=== PATIENT | female | born 1985 | race Hispanic/Latino ===

== ENCOUNTER 2017-08-27 16:02 | Emergency (ER) | payer OTHER ==
[~2017-08-27] VITALS: Ht 157.5 cm; Wt 86.2 kg
--- NOTE | 2017-08-27 17:26 | Diagnostic Imaging Report ---
Exam: Head CT without contrast History: Headache, dizziness Comparison studies: Head CT 09/26/2016 Technique: Axial images were obtained from the skull base to the vertex. Coronal and sagittal images reconstructed from the axial data. Intravenous contrast: None Findings: Scalp: No abnormalities. Bones: No fractures, blastic or lytic lesions. Brain sulci: Appropriate for age. Ventricles: Normal in size and configuration. No hydrocephalus. Extra-axial spaces: No masses, no fluid collection. Parenchyma: No abnormal densities. No masses, acute hemorrhage, acute or chronic vascular insults. Sellar/suprasellar region: No abnormalities. Craniocervical junction: Patent foramen magnum. No Chiari one malformation. Incidental findings: Physiologic calcifications in the globi pallidi.. IMPRESSION: 1. No abnormalities. 2. No changes from the previous head CT of 09/26/2016. Signed by: Dr. Terrance Reaves M.D. on 08/27/2017 5:22 PM
[2017-08-27 17:58] LABS: BASOPHILS % 0.7 % (0.0-1.0); EOSINOPHILS # (AUTO) 0.1 (0.0-0.4); EOSINOPHILS % 2.4 % (0.0-6.0); HEMATOCRIT 32.1 % (34.2-44.1); HEMOGLOBIN 10.7 g/dL (12.0-16.0); LYMPHOCYTES # (AUTO) 0.7 (1.0-3.2); LYMPHOCYTES % 22.3 % (18.0-39.1); MEAN CORPUSCULAR HGB CONC 33.3 g/dL (31-35); MEAN CORPUSCULAR VOLUME 89.9 fL (81-99); MONOCYTES # (AUTO) 0.3 (0.2-0.8); MONOCYTES % 8.8 % (4.4-11.3); NEUTROPHILS # (AUTO) 1.9 (2.1-6.9); NEUTROPHILS % 65.5 % (38.7-80.0); PLATELET COUNT 215 x10e3/uL (140-360); RED BLOOD COUNT 3.57 x10e6/uL (3.6-5.1); RED CELL DISTRIBUTION WIDTH 13.2 % (11.7-14.4)
[2017-08-27] MEDS: KETOROLAC TROMETHAMINE 30 MG/ML VIAL IV STA (17:59)
[2017-08-27] MEDS: DIPHENHYDRAMINE HCL INJ 50 MG/ML VIAL IV ONE (17:59)
[2017-08-27] MEDS: SODIUM CHLORIDE 0.9% 1000ML 1,000 ML IV STA (17:59)
[2017-08-27] MEDS: METOCLOPRAMIDE HCL 10 MG/2ML VIAL IV ONE (17:59)
[2017-08-27 18:02] LABS: BILIRUBIN,URINE NEGATIVE (NEGATIVE); KETONES,URINE NEGATIVE (NEGATIVE); LEUKOCYTE ESTERASE ,URINE TRACE (NEGATIVE); NITRITE,URINE NEGATIVE (NEGATIVE); PROTEIN,URINE DIPSTICK 3+ (NEGATIVE); URINE UROBILINOGEN 0.2 mg/dL (0.2 - 1)
[2017-08-27 18:09] LABS: CLARITY,URINE HAZY (CLEAR); COLOR,URINE YELLOW (YELLOW)
[2017-08-27 18:11] LABS: ALANINE AMINOTRANSFERASE 31 IU/L (0-55); ALBUMIN 2.3 g/dL (3.5-5.0); ALBUMIN/GLOBULIN RATIO 0.5 (0.8-2.0); ALKALINE PHOSPHATASE 88 IU/L (40-150); ANION GAP 11.2 mmol/L (8-16); BLOOD UREA NITROGEN 12 mg/dL (7-26); BUN/CREATININE RATIO 16 (6-25); CALCIUM 8.2 mg/dL (8.4-10.2); CARBON DIOXIDE 23 mmol/L (22-29); CHLORIDE 110 mmol/L (98-107); CREATININE, SERUM 0.76 mg/dL (0.57-1.11); EST GLOMERULAR FILTRATION RATE > 60 ML/MIN (60-); GLUCOSE 85 mg/dL (74-118); POTASSIUM 4.2 mmol/L (3.5-5.1); SODIUM 140 mmol/L (136-145)
[2017-08-27 18:13] LABS: BACTERIA,URINE FEW /HPF; EPITHELIAL CELLS,URINE FEW /LPF; MUCUS,URINE FEW (RARE); WBC,URINE (MAN) 21-50 /HPF (0-5)
[2017-08-27 18:39] VITALS: BP 131/62
== END 2017-08-27 18:41 | disposition home or self-care (01) ==
LOC: ER 16:02
DX: G43.909 Migraine, unspecified, not intractable, without status migrainosus (principal); N39.0 Urinary tract infection, site not specified; E03.9 Hypothyroidism, unspecified; M32.9 Systemic lupus erythematosus, unspecified
CPT/HCPCS: 36415; 70450; 80053; 81001; 84702; 85025; 87086; 87400; 99283; J1200; J1885; J2765; J7030

== ENCOUNTER 2018-05-22 11:57 | Emergency (ER) | payer BC, OTHER ==
[~2018-05-22] VITALS: Ht 157.5 cm; Wt 86.2 kg
[2018-05-22] MEDS ORDERED: PROMETHAZINE HCL (IM) 25 MG/ML VIAL IM ONE (12:30)
[2018-05-22] MEDS ORDERED: KETOROLAC TROMETHAMINE 60 MG/2 ML VIAL IM ONE (12:30)
--- OUTSIDE RECORDS SUMMARY | 2018-05-22 14:50 | XMS REPORT ---
Author Author Admin, [place] Organization [facility] Address [address] [address] Phone Allergies, Adverse Reactions, Alerts Allergy Name Reaction Description Start Date Severity Status Provider No Known Allergies Ninfabrady Viverosabida REMELTER Conditions or Problems Problem Name Problem Code Onset Date Status Entry Date Provider Comment Standard Description Annotate Depression, major 296.20 Active Janice Morin DO Major depressive disorder, single episode, unspecified degree Dyspnea on exertion 786.09 Active Janice Morin DO Other dyspnea and respiratory abnormality Encounter for immunization V05.9 Active Janice Morin DO Need for prophylactic vaccination and inoculation against unspecified single disease Hypothyroidism 244.9 Active Janice Morin DO Unspecified hypothyroidism Obesity Active Janice Morin DO Obesity, unspecified SLE (Systemic lupus erythematosus) 710.0 Active Janice Morin DO Systemic lupus erythematosus Tension headache 307.81 Active Janice Morin DO Tension headache Medication List Medication Instructions Start Date Stop Date Generic Name NDC Status Provider Patient Instruction AZATHIOPRINE 50 MG ORAL TABLET one tablet By Mouth Twice a Day AZATHIOPRINE 49015315401 Active Janice Morin DO Active CYCLOBENZAPRINE HCL 10 MG ORAL TABLET 1 By Mouth three times a day as needed for muscle spasm CYCLOBENZAPRINE HCL 33834397778 Active Janice Morin DO Active LEVOTHYROXINE SODIUM 50 MCG ORAL TABLET One tab by mouth daily LEVOTHYROXINE SODIUM 92205970217 Active Janice Morin DO Active PREDNISONE 10 MG ORAL TABLET one tablet By Mouth qday PREDNISONE 65327447744 Active Janice Morin DO Active PROPRANOLOL HCL 10 MG ORAL TABLET one tablet By Mouth qday PROPRANOLOL HCL 53685541867 Active Janice Morin DO Active Advance Directives Directive Description Start Date DISCUSSED - NO DECISION MADE Immunizations Vaccine Administration Date Value Standard Description influenza immunization (Flu Vax) has been administered given influenza virus vaccine, unspecified formulation Vital Signs Date Name Value Unit Range Description blood pressure, diastolic 58 mm[Hg] BP downs blood pressure, systolic 104 mm[Hg] BP sys height E&M 62 [in_us] Bdy height pulse rate E&M 72 /min Heart rate respiratory rate E&M 21 /min Resp rate temperature E&M 98.7 [degF] Body temperature weight E&M 196.20 [lb_av] Weight Measured Encounters Date Encounter Provider Code Facility 14:13:31 CDT New Patient Detailed - 31534 Janice Morin DO CPT-91548 [facility] Procedures Code Procedure Name Date Entry Date Standard Description CPT-53099 INFLUENZA VACCINE QUADRIVALENT 3 YRS PLUS IM 14:13:32 CDT
--- OUTSIDE RECORDS SUMMARY | 2018-05-22 14:50 | XMS REPORT | Clinical Summary ---
Author Author WAN [facility] Organization [facility] Address Unknown Phone Unavailable Care Team Providers Care Bell Staff Name Role Phone PCP Unavailable Allergies No Known Allergies Current Medications Prescription Sig. Disp. Refills Start End Date Status Date acetaminophen (TYLENOL) Take 2 tablets (650 mg 30 tablet 0 09/27/19 09/22/19 Active 325 MG tablet total) by mouth every 4 18 19 (four) hours as needed for up to 360 days. furosemide (LASIX) 40 MG Take 1 tablet (40 mg 30 tablet 1 09/28/19 09/28/19 Active tablet total) by mouth daily. 18 19 gabapentin (NEURONTIN) Take 1 capsule (300 mg 90 capsule 1 09/27/19 09/27/19 Active 300 MG capsule total) by mouth 3 (three) 18 19 times daily. hydroxychloroquine Take 1 tablet (200 mg 30 tablet 1 09/27/19 Active (PLAQUENIL) 200 mg tablet total) by mouth daily. 18 losartan (COZAAR) 50 MG Take 1 tablet (50 mg 30 tablet 1 09/28/19 09/28/19 Active tablet total) by mouth daily. 18 19 mycophenolate (CELLCEPT) Take 1 tablet (500 mg 60 tablet 1 09/27/19 09/27/19 Active 500 mg tablet total) by mouth 2 (two) 18 19 times daily. pantoprazole (PROTONIX) Take 1 tablet (40 mg 30 tablet 1 09/28/19 Active 40 MG tablet total) by mouth daily. 18 sulfamethoxazole-trimetho Take 1 tablet (160 mg of 24 tablet 1 09/29/19 Active prim (BACTRIM DS) 800-160 trimethoprim total) by 18 mg per tablet mouth 3 (three) times a week. albuterol HFA (VENTOLIN Inhale 2 puffs by mouth 1 Inhaler 0 04/20/20 04/20/20 Active HFA) 90 mcg/actuation via inhaler every 4 18 19 inhaler (four) hours as needed for Wheezing. hydroxychloroquine Take 200 mg by mouth 09/27/19 Discontin (PLAQUENIL) 200 mg tablet daily . 18 ued propranolol (INDERAL) 10 Take 10 mg by mouth 3 09/17/19 Discontin MG tablet (three) times daily. 18 ued baclofen (LIORESAL) 10 MG Take 10 mg by mouth 3 09/17/19 Discontin tablet (three) times daily. 18 ued predniSONE (DELTASONE) 10 Take 10 mg by mouth 09/03/19 Discontin MG tablet daily. 18 ued azaTHIOprine (IMURAN) 50 Take 50 mg by mouth 09/17/19 Discontin mg tablet daily. 18 ued acetaminophen-codeine Take 1 tablet by mouth 20 tablet 0 09/03/19 09/13/19 (TYLENOL #3) 300-30 mg every 4 (four) hours as 18 18 per tablet needed for up to 10 days. Max Daily Amount: 6 tablets predniSONE (DELTASONE) 10 Take 2 tablets (20 mg 20 tablet 0 09/03/19 09/13/19 MG tablet total) by mouth daily for 18 18 10 days. predniSONE (DELTASONE) 10 Take 20 mg by mouth daily 09/27/19 Discontin MG tabletIndications: Home dose unknown . 18 ued Systemic Lupus Erythematosus diphenhydrAMINE Take 1 capsule (50 mg 30 capsule 0 09/27/19 10/08/19 (BENADRYL) 50 MG capsule total) by mouth every 6 18 18 (six) hours as needed for Itching (headache) for up to 10 days. predniSONE (DELTASONE) 20 Take 3 tablets (60 mg 90 tablet 1 09/27/19 10/28/19 MG tabletIndications: total) by mouth daily for 18 18 Systemic Lupus 30 days Home dose unknown Erythematosus . promethazine (PHENERGAN) Take 1 tablet (12.5 mg 30 tablet 0 09/27/19 10/04/19 12.5 MG tablet total) by mouth every 6 18 18 (six) hours as needed for up to 7 days. traMADol (ULTRAM) 50 mg Take 2 tablets (100 mg 30 tablet 0 09/27/19 10/08/19 tablet total) by mouth every 6 18 18 (six) hours as needed (headache) for up to 10 days. Max Daily Amount: 400 mg acetaminophen-codeine Take 1-2 tablets by mouth 20 tablet 0 04/04/20 04/14/20 (TYLENOL #3) 300-30 mg every 6 (six) hours as 18 18 per tablet needed for Pain for up to 10 days. Max Daily Amount: 8 tablets cephalexin (KEFLEX) 500 Take 1 capsule (500 mg 14 capsule 0 04/20/20 04/27/20 MG capsule total) by mouth 2 (two) 18 18 times daily for 7 days. ferrous sulfate 325 (65 Take 1 tablet (325 mg 14 tablet 0 04/20/20 05/04/20 FE) MG tablet total) by mouth daily for 18 18 14 days. 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 Tachypnea 09/21/2017 Pleuritis 09/21/2017 Bilateral pleural effusion 09/21/2017 Headache 09/19/2017 Hypoalbuminemia 09/19/2017 Other proteinuria 09/19/2017 Migraine without status migrainosus, not intractable 09/18/2017 Vomiting and diarrhea 09/17/2017 Dyspnea on exertion 04/20/2017 Lupus 04/20/2017 Encounters Date Type Specialty Care Team Description 05/11/2018 Emergency Emergency Medicine Johnson Jhaveri MD Other acute gastritis - without hemorrhage 05/12/2018 (Primary Dx);Arthralgia of both hands;Tension-type headache, not intractable, unspecified chronicity pattern;Acute intractable headache, unspecified headache type 04/20/2018 Emergency Emergency Medicine Arturo Loaiza MD Other systemic lupus erythematosus with other organ involvement (HCC) (Primary Dx);Acute intractable headache, unspecified headache type;Acute cystitis without hematuria;Dyspnea and respiratory abnormality 04/04/2018 Emergency Emergency Medicine Oswald Cordova MD Upper back pain on right side (Primary Dx);Bilateral pleural effusion;Acute intractable headache, unspecified headache type;Shortness of breath;Dyspnea on exertion 04/04/2018 Orders Only General Internal Medicine 09/18/2017 Outside Orders Lab Hugo Aguero 09/17/2017 [facility] General Internal Medicine Devi Perez Vomiting and diarrhea - Encounter MD Gerhard (Primary Dx);Moderate 09/27/2017 Zora Rossi MD dehydration;Metabolic Hema Ferro MD acidosis;Hypocalcemia Minh Landis MD syndrome;Systemic lupus Terri Tejeda MD erythematosus, unspecified SLE type, unspecified organ involvement status (HCC);Nonintractable headache, unspecified chronicity pattern, unspecified headache type;Migraine without status migrainosus, not intractable, unspecified migraine type;Hypoalbuminemia;Othe r proteinuria;Tachypnea;Pablo ateral pleural effusion 09/17/2017 Orders Only General Internal Medicine 09/03/2017 Emergency Emergency Medicine Everton Celments MD Other headache syndrome (Primary Dx);Pain in both hands;Shortness of breath after 05/21/2017 Social History Tobacco Use Types Packs/Day Years Used Date Never Smoker Smokeless Tobacco: Never Used Tobacco Cessation: Counseling Given: No Alcohol Use Drinks/Week oz/Week Comments No Sex Assigned at Date Recorded Not on file Last Filed Vital Signs Vital Sign Reading Time Taken Blood Pressure 141/77 05/12/2018 3:11 AM CDT Pulse 72 05/12/2018 3:11 AM CDT Temperature 37.6 C (99.6 F) 05/11/2018 5:41 PM CDT Respiratory Rate 18 05/12/2018 3:11 AM CDT Oxygen Saturation 99% 05/12/2018 3:11 AM CDT Inhaled Oxygen - - Concentration Weight 86.2 kg (190 lb) 05/11/2018 5:41 PM CDT Height 157.5 cm (5' 2") 05/11/2018 5:41 PM CDT Body Mass Index 34.75 05/11/2018 5:41 PM CDT Plan of Treatment Not on file Procedures Procedure Name Priority Date/Time Associated Diagnosis Comments US GUIDE, VASCULAR ACCESS Routine 09/19/2017 Metabolic acidosis Results for this 11:53 AM J[employer] TRAINING [employer]IST procedure are in the results section. INSERT NON-TUNNEL CV CATH Routine 09/19/2017 Metabolic acidosis Results for this 11:53 AM JOB TRAINING SPECIALIST procedure are in the results section. CRITICAL CARE Routine 09/17/2017 Results for this 7:09 PM J[employer] TRAINING [employer]IST procedure are in the results section. after 05/21/2017 Results * C-Reactive Protein (05/11/2018 11:57 PM) Only the most recent of 3 results within the time period is included. Component Value Ref Range CRP 1.94 (H) 0.00 - 0.50 mg/dL Specimen Performing Laboratory Blood - Arm, Right [address] [address] * Urinalysis w/Microscopic (05/11/2018 10:08 PM) Only the most recent of 4 results within the time period is included. Component Value Ref Range Color, UA Light Yellow Clarity, UA Clear Specific [place], UA 1.014 1.001 - 1.035 pH, UA 6.0 5.0 - 8.0 Protein, UA 300 mg/dL (A) Negative Glucose, UA Negative Negative Ketones, UA Negative Negative Bilirubin, UA Negative Negative Blood, UA Moderate (A) Negative Nitrite, UA Negative Negative Leukocytes, UA Negative Negative Urobilinogen, UA 0.2 0.2 - 1.0 mg/dL RBC, UA 9 /HPF WBC, UA 4 /HPF Bacteria, UA Rare Mucus Rare Squam Epithel, UA <1 /HPF Hyaline Casts, UA 7 /LPF Specimen Source Specimen Performing Laboratory Urine [address] [address] * XR chest 2 views (05/11/2018 9:31 PM) Only the most recent of 3 results within the time period is included. Specimen Performing Laboratory GE RIS Narrative FINAL REPORT TECHNIQUE: Frontal and lateral views of the chest. INDICATION: Lupus. COMPARISON: Chest radiograph from 04/20/2018. FINDINGS: LINES/TUBES: None. LUNGS: Low lung volumes. Streaky left basal atelectasis PLEURA: No pleural effusion or pneumothorax. HEART AND MEDIASTINUM: The cardiomediastinal silhouette is within normal limits. SOFT TISSUES AND BONES: Leftward convex curvature of the thoracolumbar spine. IMPRESSION: Mild, subsegmental left basilar atelectasis. Otherwise, no acute cardiopulmonary abnormalities. The pleural effusions have resolved. Signed: Janes Burch MD Report Verified Date/Time:05/11/2018 21:41:24 Reading Location: [address] Consult Reading Room Procedure Note Interface, External Ris In - 05/11/2018 9:43 PM CDT FINAL REPORT TECHNIQUE: Frontal and lateral views of the chest. INDICATION: Lupus. COMPARISON: Chest radiograph from 04/20/2018. FINDINGS: LINES/TUBES: None. LUNGS: Low lung volumes. Streaky left basal atelectasis PLEURA: No pleural effusion or pneumothorax. HEART AND MEDIASTINUM: The cardiomediastinal silhouette is within normal limits. SOFT TISSUES AND BONES: Leftward convex curvature of the thoracolumbar spine. IMPRESSION: Mild, subsegmental left basilar atelectasis. Otherwise, no acute cardiopulmonary abnormalities. The pleural effusions have resolved. Signed: Janes Burch MD Report Verified Date/Time: 05/11/2018 21:41:24 Reading Location: [address] Consult Reading Room * ECG 12 lead (05/11/2018 9:02 PM) Only the most recent of 6 results within the time period is included. Specimen Performing Laboratory GE MUSE Narrative Ventricular Rate 71 BPM Atrial Rate 71 BPM P-R Interval 162 ms QRS Duration 80 ms Q-T Interval 408 ms QTC Calculation(Bazett) 443 ms P [place] 37 degrees R [place] -20 degrees T [place] 45 degrees Normal sinus rhythm Normal ECG When compared with ECG of 20-APR-2018 18:55, No significant change was found Confirmed by MD STRICKLAND JORGE ([id number]) on 05/13/2018 2:42:55 PM Procedure Note Interface, External Ris In - 05/13/2018 2:43 PM CDT Ventricular Rate 71 BPM Atrial Rate 71 BPM P-R Interval 162 ms QRS Duration 80 ms Q-T Interval 408 ms QTC Calculation(Bazett) 443 ms P [place] 37 degrees R [place] -20 degrees T [place] 45 degrees Normal sinus rhythm Normal ECG When compared with ECG of 20-APR-2018 18:55, No significant change was found Confirmed by MD STRICKLAND JORGE ([id number]) on 05/13/2018 2:42:55 PM * TSH/Free T4 If Indicated (05/11/2018 8:56 PM) Only the most recent of 2 results within the time period is included. Component Value Ref Range TSH 4.50 0.35 - 4.94 uIU/mL Specimen Performing Laboratory Blood [address] [address] * CBC with platelet count + automated diff (05/11/2018 8:56 PM) Only the most recent of 14 results within the time period is included. Component Value Ref Range WBC 3.8 3.5 - 10.5 K/L RBC 2.94 (L) 3.93 - 5.22 M/L Hemoglobin 8.7 (L) 11.2 - 15.7 GM/DL Hematocrit 26.5 (L) 34.1 - 44.9 % MCV 90.1 79.4 - 94.8 fL MCH 29.6 25.6 - 32.2 pg MCHC 32.8 32.2 - 35.5 GM/DL RDW 14.8 (H) 11.7 - 14.4 % Platelets 298 150 - 450 K/CU MM MPV 11.0 9.4 - 12.3 fL nRBC 0 0 - 0 /100 WBC % Neutros 79 % % Lymphs 15 % % Monos 5 % % Eos 1 % % Baso 0 % # Neutros 2.99 1.56 - 6.13 K/L # Lymphs 0.57 (L) 1.18 - 3.74 K/L # Monos 0.17 (L) 0.24 - 0.36 K/L # Eos 0.03 (L) 0.04 - 0.36 K/L # Baso 0.01 0.01 - 0.08 K/L Immature 0 0 - 1 % Granulocytes-Relative Specimen Performing Laboratory Blood [address] [address] * Troponin I (05/11/2018 8:56 PM) Only the most recent of 3 results within the time period is included. Component Value Ref Range Troponin I <0.01 0.00 - 0.03 ng/mL Specimen Performing Laboratory Blood [address] [address] Narrative Troponin I (TnI) levels must be interpreted in the context of the presenting symptoms and the clinical findings. Elevated TnI levels indicate myocardial damage, but are not specific for ischemic heart disease. Elevated TnI levels are seen in patients with other cardiac conditions (including myocarditis and congestive heart failure), and slight TnI elevations occur in patients with other conditions, including sepsis, renal failure, acidosis, acute neurological disease, and persistent tachyarrhythmia. * CBC with platelet count + automated diff (05/11/2018 8:56 PM) Only the most recent of 14 results within the time period is included. Specimen Performing Laboratory Blood Narrative The following orders were created for panel order CBC with platelet count + automated diff. Procedure Abnormality Status --------- ------ CBC with platelet count ...[[id number]]AbnormalFinal result Please view results for these tests on the individual orders. * Complement Component C3 (05/11/2018 8:56 PM) Only the most recent of 3 results within the time period is included. Component Value Ref Range C3 Complement 68 (L) 82 - 193 mg/dL Specimen Performing Laboratory Blood [address] [address] * Complement Component C4 (05/11/2018 8:56 PM) Only the most recent of 3 results within the time period is included. Component Value Ref Range C4 Complement 11 (L) 15 - 57 mg/dL Specimen Performing Laboratory Blood [address] [address] * Comprehensive metabolic panel (05/11/2018 8:56 PM) Only the most recent of 2 results within the time period is included. Component Value Ref Range Protein, Total 6.3Comment: Specimen slightly hemolyzed 6.0 - 8.3 gm/dL Albumin 2.6 (L)Comment: Specimen slightly hemolyzed 3.5 - 5.0 g/dL Alkaline Phosphatase 84 40 - 150 U/L Total Bilirubin 0.2Comment: Specimen slightly hemolyzed 0.2 - 1.2 mg/dL Sodium 138 136 - 145 meq/L Potassium 4.5Comment: Specimen slightly hemolyzed 3.5 - 5.1 meq/L Chloride 117 (H) 98 - 107 meq/L CO2 16 (L) 22 - 29 meq/L BUN 21 7 - 21 mg/dL Creatinine 0.84Comment: Specimen slightly hemolyzed 0.57 - 1.25 mg/dL Glucose 90 70 - 105 mg/dL Calcium 7.8 (L) 8.4 - 10.2 mg/dL AST 23Comment: Specimen slightly hemolyzed 5 - 34 U/L ALT 15Comment: Specimen slightly hemolyzed 6 - 55 U/L EGFR Comment: INSUFFICIENT CLINICAL DATA TO CALCULATE mL/min/1.73 sq m ESTIMATED GFR. Specimen [place] [address] * Screen, urine (04/20/2018 10:00 PM) Only the most recent of 3 results within the time period is included. Component Value Ref Range Preg Test, Ur Negative Specimen [place] [address] * Basic Metabolic Panel (04/20/2018 7:56 PM) Only the most recent of 12 results within the time period is included. Component Value Ref Range Sodium 138 136 - 145 meq/L Potassium 3.7 3.5 - 5.1 meq/L Chloride 114 (H) 98 - 107 meq/L CO2 16 (L) 22 - 29 meq/L BUN 21 7 - 21 mg/dL Creatinine 1.56 (H) 0.57 - 1.25 mg/dL Glucose 84 70 - 105 mg/dL Calcium 8.4 8.4 - 10.2 mg/dL EGFR Comment: INSUFFICIENT CLINICAL DATA TO CALCULATE mL/min/1.73 sq m ESTIMATED GFR. Specimen Performing Laboratory Blood - Arm, [place] [address] * CT chest for pulmonary embolus (04/04/2018 8:03 PM) Specimen Performing Laboratory [employer] RIS Narrative FINAL REPORT CLINICAL HISTORY: Is pain and shortness of breath FINDINGS: Multiple axial images of the chest were performed after the uncomplicated administration of IV contrast, utilizing a pulmonary embolism protocol. Post-processing coronal reformats were created and interpreted. This exam was performed according to our departmental dose-optimization program, which includes automated exposure control, adjustment of the mA and/or kV according to patient size and/or use of the iterative reconstruction technique. Study quality:Adequate. Comparison:None. Pulmonary arteries: No pulmonary embolism. Lung parenchyma: No significant findings. Pleural effusion: None. Pneumothorax: None. Tracheobronchial tree: No significant findings. Pulmonary vasculature: No significant findings. Cardiac contours and great vessels: No significant findings. Mediastinum: No significant findings. Lymph Nodes: No adenopathy in the mediastinum or karel. Skeleton: No acute abnormality. Limited images of upper abdomen: No significant findings. IMPRESSION: No pulmonary embolism. Signed: Shruti López MD Report Verified Date/Time:04/04/2018 20:11:45 Reading Location: [address] Reading Room Procedure Note Interface, External Ris In - 04/04/2018 8:13 PM CDT FINAL REPORT CLINICAL HISTORY: Is pain and shortness of breath FINDINGS: Multiple axial images of the chest were performed after the uncomplicated administration of IV contrast, utilizing a pulmonary embolism protocol. Post-processing coronal reformats were created and interpreted. This exam was performed according to our departmental dose-optimization program, which includes automated exposure control, adjustment of the mA and/or kV according to patient size and/or use of the iterative reconstruction technique. Study quality:Adequate. Comparison:None. Pulmonary arteries: No pulmonary embolism. Lung parenchyma: No significant findings. Pleural effusion: None. Pneumothorax: None. Tracheobronchial tree: No significant findings. Pulmonary vasculature: No significant findings. Cardiac contours and great vessels: No significant findings. Mediastinum: No significant findings. Lymph Nodes: No adenopathy in the mediastinum or karel. Skeleton: No acute abnormality. Limited images of upper abdomen: No significant findings. IMPRESSION: No pulmonary embolism. Signed: Shruti López MD Report Verified Date/Time: 04/04/2018 20:11:45 Reading Location: [address] Reading Room * CT brain without IV contrast (04/04/2018 6:45 PM) Only the most recent of 3 results within the time period is included. Specimen Performing Laboratory RIS Narrative FINAL REPORT CT head without contrast 04/04/2018 6:54 PM CLINICAL HISTORY: Headache, acute, norm neuro exam MIGRAINE TECHNIQUE: Axial noncontrast CT images through the head were obtained. This examination was performed according to our departmental dose optimization program, which includes automated exposure control, adjustment of the mA and/or kV according to patient size, and/or use of iterated reconstruction technique. COMPARISON: 09/17/2017 FINDINGS: There is no hemorrhage, extra-axial collection, mass, hydrocephalus, or midline shift. There is no CT evidence for cerebral infarction. The visualized paranasal sinuses and mastoid air cells are well aerated. The skull is intact. IMPRESSION: No intracranial hemorrhage or mass effect. If concern for acute pathology persists, further evaluation with MRI is recommended. Signed: Aida Roque MD Report Verified Date/Time:04/04/2018 18:55:24 Reading Location: [address] Neuro Reading Room Procedure Note Interface, External Ris In - 04/04/2018 6:57 PM CDT FINAL REPORT CT head without contrast 04/04/2018 6:54 PM CLINICAL HISTORY: Headache, acute, norm neuro exam MIGRAINE TECHNIQUE: Axial noncontrast CT images through the head were obtained. This examination was performed according to our departmental dose optimization program, which includes automated exposure control, adjustment of the mA and/or kV according to patient size, and/or use of iterated reconstruction technique. COMPARISON: 09/17/2017 FINDINGS: There is no hemorrhage, extra-axial collection, mass, hydrocephalus, or midline shift. There is no CT evidence for cerebral infarction. The visualized paranasal sinuses and mastoid air cells are well aerated. The skull is intact. IMPRESSION: No intracranial hemorrhage or mass effect. If concern for acute pathology persists, further evaluation with MRI is recommended. Signed: Aida Roque MD Report Verified Date/Time: 04/04/2018 18:55:24 Reading Location: [address] Neuro Reading Room * POCT , urine (04/04/2018 2:57 PM) Component Value Ref Range Test Urine, POC Negative Control line present?, Yes POC Background clear?, POC Yes UPT Cassette Lot #, POC [id number] UPT Cassette Expiration [id number] Date, POC Specimen Performing Laboratory Urine * CT chest without IV contrast (09/24/2017 4:48 PM) Specimen Performing Laboratory GE RIS Narrative FINAL REPORT Chest CT without intravenous contrast INDICATION: dyspnea COMPARISON: 04/20/2017 TECHNIQUE: Multiple contiguous transaxial images of the chest were obtained without intravenous contrast. This exam was performed according to our departmental dose optimization program which includes automated exposure control, adjustment of the mA and/or kV according to patient size and/or use of iterative reconstructive technique. FINDINGS: Lack of intravenous contrast limits evaluation of the parenchymal and vascular organs. There are small bilateral pleural effusions with subsegmental atelectasis and scarring. There is no pneumothorax. The major airways are clear. There is a nonspecific 4 mm nodule in the right upper lobe, image 20. The visualized portion of the thyroid gland appear unremarkable. There is a small pericardial effusion. The heart size is mildly enlarged. No pathologically enlarged lymph nodes are seen in the hilar, mediastinal or axillary regions. Limited visualization of the upper abdominal structures appear unremarkable. The osseous structures demonstrate mild degenerative change. IMPRESSION: 1. Small bilateral pleural effusions with atelectasis. Small pericardial effusion. 2. Mild cardiomegaly. 3. 4 mm nodule in the right upper lobe. 2017 Fleischner Society Recommendations for Single Solid Lung Nodule Follow-Up based on size (average of long- and short-axis diameters) <6 mm Low-Risk Patient: No routine follow-up <6 mm High-Risk Patient: Optional CT at 12 months 6-8 mm Low-Risk Patient: CT at 6-[address] at 18-24 months 6-8 mm High-Risk Patient: CT at 6-[address] at 18-24 months >8 mm Low-Risk Patient: Consider CT, PET/CT or tissue sampling at 3 months >8 mm High-Risk Patient: Same as for low-risk patient Signed: Kieran Gonzáles MD Report Verified Date/Time:09/24/2017 17:10:38 Reading Location: [address] Consult Reading Room Procedure Note Interface, External Ris In - 09/24/2017 5:12 PM JOB TRA[employer]ING SPECIALIST FINAL REPORT Chest CT without intravenous contrast INDICATION: dyspnea COMPARISON: 04/20/2017 TECHNIQUE: Multiple contiguous transaxial images of the chest were obtained without intravenous contrast. This exam was performed according to our departmental dose optimization program which includes automated exposure control, adjustment of the mA and/or kV according to patient size and/or use of iterative reconstructive technique. FINDINGS: Lack of intravenous contrast limits evaluation of the parenchymal and vascular organs. There are small bilateral pleural effusions with subsegmental atelectasis and scarring. There is no pneumothorax. The major airways are clear. There is a nonspecific 4 mm nodule in the right upper lobe, image 20. The visualized portion of the thyroid gland appear unremarkable. There is a small pericardial effusion. The heart size is mildly enlarged. No pathologically enlarged lymph nodes are seen in the hilar, mediastinal or axillary regions. Limited visualization of the upper abdominal structures appear unremarkable. The osseous structures demonstrate mild degenerative change. IMPRESSION: 1. Small bilateral pleural effusions with atelectasis. Small pericardial effusion. 2. Mild cardiomegaly. 3. 4 mm nodule in the right upper lobe. 2017 Fleischner Society Recommendations for Single Solid Lung Nodule Follow-Up based on size (average of long- and short-axis diameters) <6 mm Low-Risk Patient: No routine follow-up <6 mm High-Risk Patient: Optional CT at 12 months 6-8 mm Low-Risk Patient: CT at 6-[address] at 18-24 months 6-8 mm High-Risk Patient: CT at 6-[address] at 18-24 months >8 mm Low-Risk Patient: Consider CT, PET/CT or tissue sampling at 3 months >8 mm High-Risk Patient: Same as for low-risk patient Signed: Kieran Gonzáles MD Report Verified Date/Time: 09/24/2017 17:10:38 Reading Location: [facility] C013X [facility] Consult Reading Room * Respiratory Panel [facility] [facility] (09/24/2017 11:51 AM) Component Value Ref Range Human Metapneumovirus Not detected Not detected, Inconclusive Rhinovirus Not detected Not detected, Inconclusive Influenza A Not detected Not detected, Inconclusive Influenza A subtype H1 Not detected Not detected, Inconclusive Influenza A Subtype H3 Not detected Not detected, Inconclusive Influenza A Subtype Not detected Not detected, H1-2009 Inconclusive Influenza B Not detected Not detected, Inconclusive Respiratory Syncytial Not detected Not detected, Virus Inconclusive Parainfluenza Virus 1 Not detected Not detected, Inconclusive Parainfluenza Virus 2 Not detected Not detected, Inconclusive Parainfluenza virus 3 Not detected Not detected, Inconclusive Parainfluenza Virus 4 Not detected Not detected, Inconclusive Adenovirus Not detected Not detected, Inconclusive Coronavirus 229E Not detected Not detected, Inconclusive Coronavirus HKU1 Not detected Not detected, Inconclusive Coronavirus NL63 Not detected Not detected, Inconclusive Coronavirus OC43 Not detected Not detected, Inconclusive Bordetella Pertussis Not detected Not detected, Inconclusive Chlamydophila Pneumoniae Not detected Not detected, Inconclusive Mycoplasma Pneumoniae Not detected Not detected, Inconclusive Specimen Performing Laboratory Nasopharyngeal - Nasal, [facility] Left [address] [place] [id number] * Creatine Kinase (CK), Total and MB (09/24/2017 2:04 AM) Component Value Ref Range Total CK 31 29 - 200 U/L CK-MB 0.2 0.0 - 6.6 ng/mL MB Relative Index 0.6 % Specimen Performing Laboratory Blood - Arm, Right [address] [address] Narrative CK-MB Reference Range: <6.7Normal 6.7-10.0Borderline >10.0 Abnormal * XR chest 1 view portable / bedside (09/24/2017 1:09 AM) Only the most recent of 3 results within the time period is included. Specimen Performing Laboratory GE RIS Narrative FINAL REPORT RAD, CHEST, 1 VIEW, NON DEPT INDICATION: chest pain COMPARISON: Chest x-ray 3 days ago TECHNIQUE: Single frontal view of the chest. IMPRESSION: Low lung volumes. Stable cardiac silhouette. Patchy bibasilar opacities which could reflect atelectasis and/or a pneumonia. Slight decrease in the size of the right-sided effusion. No acute osseous abnormality. Signed: Yesenia Monroy MD Report Verified Date/Time:09/24/2017 01:15:35 Reading Location: [address] Ortho Consult Reading Room Procedure Note Interface, External Ris In - 09/24/2017 1:17 AM JOB TRAINING SPECIALIST FINAL REPORT RAD, CHEST, 1 VIEW, NON DEPT INDICATION: chest pain COMPARISON: Chest x-ray 3 days ago TECHNIQUE: Single frontal view of the chest. IMPRESSION: Low lung volumes. Stable cardiac silhouette. Patchy bibasilar opacities which could reflect atelectasis and/or a pneumonia. Slight decrease in the size of the right-sided effusion. No acute osseous abnormality. Signed: Yesenia Monroy MD Report Verified Date/Time: 09/24/2017 01:15:35 Reading Location: [facility] B1 [id number] Ortho Consult Reading Room * Anti-Neutrophil Cytoplasmic Ab (ANCA) (09/23/2017 11:08 AM) Component Value Ref Range Proteinase-3 Ab <1.0 <1.0 AI Comment: <1.0 AI No Antibody Detected > or=1.0 AI Antibody Detected Autoantibodies to proteinase-3 (MN-3) are accepted as characteristic for granulomatosis with polyangiitis (GPA, Kianna's), and are detectable in 95% of the histologically proven cases. The cytoplasmic IFA pattern, (c-ANCA), is based largely on autoantibody to MN-3 which serves as the primary antigen. These autoantibodies are present in active disease. Myeloperoxidase Ab <1.0 <1.0 AI Comment: <1.0 AI No Antibody Detected > or=1.0 AI Antibody Detected Autoantibodies to myeloperoxidase (MPO) are commonly associated with the following small-vessel vasculitides: microscopic polyangiitis, polyarteritis nodosa, Churg-Sugye syndrome, necrotizing and crescentic glomerulonephritis and occasionally granulomatosis with polyangiitis (GPA, Kianna's). The perinuclear IFA pattern, (p-ANCA) is based largely on autoantibody to myeloperoxidase which serves as the primary antigen. These autoantibodies are present in active disease. Specimen Performing Laboratory Blood [facility] [address] [address] Narrative Performing Lab [facility] [address] [address] Jade Gore MD, PhD * Sedimentation rate (09/23/2017 11:08 AM) Only the most recent of 2 results within the time period is included. Component Value Ref Range Sed Rate >120 (H) 0 - 20 mm/HR Specimen Performing Laboratory [place] [address] * PERIPHERAL VASCULAR REPORT - SCAN (09/23/2017 7:20 AM) Only the most recent of 2 results within the time period is included. * Venous doppler arm, left (09/22/2017 7:50 PM) Component Value Ref Range Ejection Fraction Specimen Performing Laboratory [facility] Impressions Left Impression 1. There is no deep venous obstruction in the jugular, subclavian, axillary, brachial, radial or ulnar veins. 2. There is total echolucent superficial venous obstruction in the cephalic vein around the IV line. 3. The basilic vein is not visualized. Conclusions Summary Venous duplex imaging and compression of the left upper extremity was performed. The veins were technically difficult to visualize due to edema. The left deep venous system was patent and compressible with no evidence of thrombus. The left superficial venous system was positive with acute thrombus. Signature Velocities are measured in cm/s ; Diameters are measured in cm Narrative PV [facility] - Upper Extremities Veins Demographics Patient Name Johanna TAFOYA of Study09/22/2017 ТАТЬЯНА [id number] Age31 Visit Number [id number] Gender Female Accession Number [id number] Date of Birth1985 Jemima Blackwood [id number] Physician SonographJaquelin HortonInterpreting Aguila Tirado RPVI Procedure Type of Study: Veins: Upper Extremities Veins, VENOUS DOPPLER ARM, LEFT. Indications for Study:Left arm swelling . Patient Status:Routine. Study Location:Portable. Technical Quality:Adequate visualization. - Results were reported to:MARIE Nuñez @ 19:50. Risk Factors History of Disease + + + + !Diagnosis!Date!Comments ! + + + + !Other!!Lupus! + + + + !History/Risk Factors:!09/22/2017!LUE invasive line! ! !!LUE pain and swelling! + + + + Procedure Note Interface, External Ris In - 09/23/2017 5:12 AM JOB TRAINING SPECIALIST PV LAB - Upper Extremities Veins Demographics Patient Name JOE TAFOYA Date of Study 09/22/2017 ТАТЬЯНА Age 31 Visit Number [id number] Gender Female Accession Number [id number] Date of 1985 Referring Hema Villanueva Pillo Room Number 2114 Physician Sketch Artist Belén Horton Interpreting Marcin Ryan T Physician , RPVI Procedure Type of Study: Veins: Upper Extremities Veins, VENOUS DOPPLER ARM, LEFT. Indications for Study:Left arm swelling . Patient Status:Routine. Study Location:Portable. Technical Quality:Adequate visualization. - Results were reported to:MARIE Nuñez @ 19:50. Risk Factors History of Disease + + + + !Diagnosis !Date !Comments ! + + + + !Other ! !Lupus ! + + + + !History/Risk Factors: !09/22/2017!LUE invasive line ! ! ! !LUE pain and swelling ! + + + + Impressions Left Impression 1. There is no deep venous obstruction in the jugular, subclavian, axillary, brachial, radial or ulnar veins. 2. There is total echolucent superficial venous obstruction in the cephalic vein around the IV line. 3. The basilic vein is not visualized. Conclusions Summary Venous duplex imaging and compression of the left upper extremity was performed. The veins were technically difficult to visualize due to edema. The left deep venous system was patent and compressible with no evidence of thrombus. The left superficial venous system was positive with acute thrombus. Signature Velocities are measured in cm/s ; Diameters are measured in cm * NM lung scan (V/Q) (09/22/2017 11:38 AM) Specimen Performing Laboratory RIS Narrative FINAL REPORT PROCEDURE: V/Q LUNG SCAN CPT CODE:72660 INDICATION:Dyspnea, pleural effusion PROTOCOL:10.6 mCi ofXe-133 gas was administered by inhalation. Rebreathing/washout images were obtained in the anterior and the posterior projections.4.04 mCi of Tc-99m MAA was then injected intravenously, and static perfusion images were obtained in multiple projections. FINDINGS: Ventilation: Initial tracer distribution is slightly decreased in the bases with prominence of the cardiac silhouette. Washout proceeds normally. Perfusion:Tracer distribution is mildly irregular with matching findings. IMPRESSION: 1. Low probability of acute pulmonary embolization. 2. Findings are consistent with parenchymal lung disease and history of pleural effusion.. Signed: Paul Gonzalez MD Report Verified Date/Time:09/22/2017 12:18:49 Reading Location: [address] Reading Room Procedure Note Interface, External Ris In - 09/22/2017 12:21 PM JOB TRAINING SPECIALIST FINAL REPORT PROCEDURE: V/Q LUNG SCAN CPT CODE: 61087 INDICATION: Dyspnea, pleural effusion PROTOCOL: 10.6 mCi of Xe-133 gas was administered by inhalation. Rebreathing/washout images were obtained in the anterior and the posterior projections. 4.04 mCi of Tc-99m MAA was then injected intravenously, and static perfusion images were obtained in multiple projections. FINDINGS: Ventilation: Initial tracer distribution is slightly decreased in the bases with prominence of the cardiac silhouette. Washout proceeds normally. Perfusion: Tracer distribution is mildly irregular with matching findings. IMPRESSION: 1. Low probability of acute pulmonary embolization. 2. Findings are consistent with parenchymal lung disease and history of pleural effusion.. Signed: Paul Gonzalez MD Report Verified Date/Time: 09/22/2017 12:18:49 Reading Location: [address] [address] Reading Room * Venous doppler legs bilateral (09/22/2017 10:26 AM) Component Value Ref Range Ejection Fraction Specimen Performing Laboratory [facility] Impressions Right Impression 1. There is no deep venous obstruction in the common femoral, profunda femoral, femoral, popliteal, posterior tibial or peroneal veins. 2. There is no superficial venous obstruction in the great saphenous vein. Left Impression 1. There is no deep venous obstruction in the common femoral, profunda femoral, femoral, popliteal, posterior tibial or peroneal veins. 2. There is no superficial venous obstruction in the great saphenous vein. Conclusions Summary Venous duplex imaging and compression of the bilateral lower extremities were performed. The veins were adequately visualized. The bilateral venous systems were patent and compressible with no evidence of thrombus. The venous Doppler waveforms were phasic with respiration . Signature Velocities are measured in cm/s ; Diameters are measured in cm Narrative PV [facility] - Lower Extremities DVT Study Demographics Patient JOE Shay Date of Study 09/22/2017 Age 31 Visit [id number] of 1985 Number Referring Wil Palm. Room Number 2114 Physician Sketch Artist Janes Perez. InterpretingMarcin Ryan RVT, Cyndie BROOKS, [facility] Procedure Type of Study: Veins: Lower Extremities DVT Study, VENOUS DOPPLER LEG, BILATERAL. Indications for Study:Swelling. Patient Status:Routine. Study Location:Vascular Lab. Technical Quality:Technically Difficult. Risk Factors History of Disease + + + + !Diagnosis !Date !Comments ! + + + + !Other ! !Lupus! + + + + Procedure Note Interface, External Ris In - 09/22/2017 10:50 AM JOB TRAINING SPECIALIST PV LAB - Lower Extremities DVT Study Demographics Patient Name JOE TAFOYA Date of Study 09/22/2017 Age 31 Visit Number [id number] Gender Female Date of 1985 Number Referring Wil Palm. Room Number 2114 Physician Sketch Artist Janes Perez. Interpreting Marcin Ryan RVT, ÁNGELA Brizuela MD, RPNESHA Procedure Type of Study: Veins: Lower Extremities DVT Study, VENOUS DOPPLER LEG, BILATERAL. Indications for Study:Swelling. Patient Status:Routine. Study Location:Vascular Lab. Technical Quality:Technically Difficult. Risk Factors History of Disease + + + + !Diagnosis !Date !Comments ! + + + + !Other ! !Lupus ! + + + + Impressions Right Impression 1. There is no deep venous obstruction in the common femoral, profunda femoral, femoral, popliteal, posterior tibial or peroneal veins. 2. There is no superficial venous obstruction in the great saphenous vein. Left Impression 1. There is no deep venous obstruction in the common femoral, profunda femoral, femoral, popliteal, posterior tibial or peroneal veins. 2. There is no superficial venous obstruction in the great saphenous vein. Conclusions Summary Venous duplex imaging and compression of the bilateral lower extremities were performed. The veins were adequately visualized. The bilateral venous systems were patent and compressible with no evidence of thrombus. The venous Doppler waveforms were phasic with respiration . Signature Velocities are measured in cm/s ; Diameters are measured in cm * ECHOCARDIOGRAM REPORT - SCAN (09/21/2017 4:20 PM) * Tissue Exam (09/21/2017 1:59 PM) Component Value Ref Range Case Report Surgical Pathology Report Case: [id number] Authorizing Provider:Joao Khalil MDCollected: 09/21/2017 2251 Ordering Location: [address] Received:09/21/2017 1350 Service Pathologist: Marlene Lynch MD Specimen:Kidney, Left DIAGNOSIS KIDNEY, LEFT, NEEDLE BIOPSIES - DIFFUSE, PREDOMINANTLY SEGMENTAL, PROLIFERATIVE GLOMERULONEPHRITIS, ACTIVE AND CHRONIC, CONSISTENT WITH ISN/RPS DIFFUSE LUPUS NEPHRITIS, 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 Only five glomeruli are present in the kidney biopsy submitted for light microscopy, and show features are of class IV (S) (A/C) lupus nephritis. Diffuse segmental proliferative lesions in lupus nephritis have been found to be more frequently associated with presence of ANCA (see reference). Clinical correlation is suggested. In addition, there is a component of membranous lupus nephritis. Reference: Leonor T, et al. Positive antineutrophil cytoplasmic antibody serology in patients with lupus nephritis is associated with distinct histopathologic features on renal biopsy. Kidney Int. 2017 Nov;92(5):0925-3588. The results were discussed with Dr. Shepherd on 09/22/2017 CPT Code(s) 96755, 02096 x3, 78537, 26946 x6, 44841 CLINICAL HISTORY SLE with nephrotic syndrome SPECIMEN SOURCE Left [place] renal biopsy GROSS DESCRIPTION Specimen is received in three containers all labeled with the patient's information and "left [place] renal biopsy". Received in formalin are two light-castrejon cores of soft tissue measuring 0.5 cm and 1.6 cm in length, entirely submitted in cassette A1. Received in saline is a 1.5 cm in length light-castrejon core of soft tissue, which is frozen and entirely submitted for immunofluorescent staining. Received in glutaraldehyde is a 0.3 cm in length, light-castrejon core of soft tissue, which is entirely submitted for EM studies. DB/ew MICROSCOPIC DESCRIPTION LIGHT MICROSCOPY: The renal biopsy includes two core of renal parenchymal tissue comprised of cortex (40%) and medulla (60%). Glomeruli: Approximately 5 glomeruli are examined. No glomerulus is globally sclerotic. All glomeruli are enlarged, with segmental lobular accentuation due to mesangial and endocapillary hypercellularity along with mild neutrophilic exudation. Occasional glomerulus shows global hypercellularity. Focal wire loop lesions are noted. Silver stain shows glomerular basement membranes with segmental double contours and mesangial interpositioning. There are segmental holes in the basement membranes with rare spikes. One glomerulus shows a fibrocellular crescent and there is another glomerulus with a partial fibrocellular crescent. Focal and segmental adhesions are seen. No hyaline thrombi or fibrinoid necrosis is seen. Tubules and interstitium: No significant interstitial fibrosis or tubular atrophy is seen. No significant interstitial inflammation is noted. Vessels: Interlobular arteries show mild intimal fibrosis. There is mild arteriolar hyalinosis. No thrombi or necrotizing vasculitis is seen. IMMUNOFLUORESCENCE: Direct Immunofluorescence performed on paraffin embedded tissue Immunofluorescence findings: IgA: Diffuse, segmental to global granular, peripheral capillary loop and mesangial staining 1+ IgG: Diffuse, segmental to global granular, peripheral capillary loop and mesangial staining 3+ IgM: Diffuse segmental to global, granular, peripheral capillary loop and mesangial staining 2+ C3: Diffuse and global, granular, peripheral capillary loop and mesangial staining, 3+ C1q:Diffuse and global, granular, peripheral capillary loop and mesangial, 3+ Furman:Diffuse and global, granular, peripheral capillary loop and mesangial staining 3+ Lambda: Diffuse and global, granular, peripheral capillary loop and mesangial staining 3+ Diagnostic Electron Microscopy: Thick section histology: Toluidine blue-stained sections reveal 4 glomeruli, all of which are examined ultrastructurally. Ultrastructure: Examination of the glomerular ultrastructure reveals that there is diffuse segmental to global endocapillary proliferation. The glomerular basement membrane shows segmental mesangial interposition, and presence of double contours. The mesangial matrix is mildly expanded. Numerous subendothelial, subepithelial and mesangial/paramesangialelectron-dense, immune complex-type deposits are present. Podocyte foot processes are diffusely effaced. Specimen Performing Laboratory Tissue - Kidney, [place] [address] * US renal biopsy (09/21/2017 1:43 PM) Specimen Performing Laboratory GE RIS Narrative FINAL REPORT Ultrasound guided [place] kidney randombiopsy: Pertinent clinical information: Lupus with nephrotic syndrome Modality: Sonography Conscious Sedation : Versed 1 mg and fentanyl 50 mcg intravenously During the procedure with conscious sedation, the patient was monitored continuously with pulse oximetry and electrocardiography by the attending radiologist and nursing personnel. Physician Patient face to face intraservice time: 30 minutes Anesthesia:Two percent Lidocaine injected subcutaneously at the insertion site. Approach: Left flank Pathology specimen sent: Two core 18-gauge specimen Technique:After informed written consent was obtained, the patient was prepped and draped in the usual sterile manner.Access was obtained using sonographic guidance.A 18-gauge core biopsy needle was advanced into the left kidney.Two passes were made through the left kidney. The patient tolerated the procedure well. The patient was monitored by a nurse during the procedure.Oxygen saturation, an ECG and blood pressure monitoring was performed throughout the procedure. Impression: Successful, uncomplicated ultrasound-guided [place] kidney biopsy. Signed: Joanne Liao MD Report Verified Date/Time:09/21/2017 15:02:26 Reading Location: [facility] [id number] Ultrasound Reading Room Procedure Note Interface, External Ris In - 09/21/2017 3:04 PM JOB TRAINING SPECIALIST FINAL REPORT Ultrasound guided [place] kidney random biopsy: Pertinent clinical information: Lupus with nephrotic syndrome Modality: Sonography Conscious Sedation : Versed 1 mg and fentanyl 50 mcg intravenously During the procedure with conscious sedation, the patient was monitored continuously with pulse oximetry and electrocardiography by the attending radiologist and nursing personnel. Physician Patient face to face intraservice time: 30 minutes Anesthesia: Two percent Lidocaine injected subcutaneously at the insertion site. Approach: Left flank Pathology specimen sent: Two core 18-gauge specimen Technique: After informed written consent was obtained, the patient was prepped and draped in the usual sterile manner. Access was obtained using sonographic guidance. A 18-gauge core biopsy needle was advanced into the left kidney. Two passes were made through the left kidney. The patient tolerated the procedure well. The patient was monitored by a nurse during the procedure. Oxygen saturation, an ECG and blood pressure monitoring was performed throughout the procedure. Impression: Successful, uncomplicated ultrasound-guided [place] kidney biopsy. Signed: Joanne Liao MD Report Verified Date/Time: 09/21/2017 15:02:26 Reading Location: [address] Ultrasound Reading Room * Prothrombin time/INR (09/21/2017 9:20 AM) Component Value Ref Range Protime 13.1 11.7 - 14.7 seconds INR 1.0 <=5.9 Specimen Performing Laboratory [place] [address] Narrative RECOMMENDED COUMADIN/WARFARIN INR THERAPY RANGES STANDARD DOSE: 2.0 - 3.0 Includes: PROPHYLAXIS for venous thrombosis, systemic embolization; TREATMENT for venous thrombosis and/or pulmonary embolus. HIGH RISK: Target INR is 2.5-3.5 for patients with mechanical heart valves. * 2D Echo W/O Doppler(No Doppler) (09/21/2017 8:37 AM) Component Value Ref Range Ejection Fraction Specimen Performing Laboratory [facility] Narrative Transthoracic Echocardiography Report (TTE) Demographics Patient Name Yun TAFOYAte of Study 09/21/2017 ТАТЬЯНА [id number] GenderFemale Visit Number [id number] RaceHispanic [id number] Number [id number] Number Date of Birth1985 Referring Physician Chris Hennessy Age31 year(s) Sketch Artist Vern Greenwood [facility] Ileana Chaves [facility] Physician Procedure Type of Study TTE procedure:ECHO2D MODE W/O DOPPLER (STAT) Indications:Suspected Pericardial conditions. Clinical History HGB 9.3 HCT 28.8 % SLE Height: 62 inches Weight: 88.9 kg (196 lbs) BSA: 1.9 m^2 BMI: 35.85 kg/m^2 HR: 83 bpm BP: 134/65 mmHg Summary Essentially normal exam. The left ventricle is chamber size (by vol index) is normal (female - LVED vol - 29-61ml/m2). No evidence of LV hypertrophy. All of the LV segments contract normally . Global LV systolic function normal . The LVEF was measured using Mccullough's bi-plane method of disk . Normal diastolic function. LVEF by Mccullough's method of disk assessment is normal (60%) . Previous Study Compared to the previous study 04/20/2017 the following changes are seen-unable to estimate the PA systolic pressures. Signature Findings Technical Quality: Technically adequate exam. Rhythm/BPRegular sinus rhythm during the exam. Left Ventricle The left ventricle is chamber size (by vol index) is normal (female - LVED vol - 29-61ml/m2). No evidence of LV hypertrophy. All of the LV segments contract normally . Global LV systolic function normal . The LVEF was measured using Mccullough's bi-plane method of disk . Normal diastolic function. LVEF by Mccullough's method of disk assessment is normal (60%) . Left AtriumLA size is normal (16-34 ml/m2) . Right VentricleThe right ventricular chamber size and systolic function are within normal limits. Right Atrium RA cavity size is normal . Aortic Valve Normal AoV structure and function. Mitral Valve Trace mitral regurgitation. Mild MV leaflet thickening. Tricuspid ValveTV structure is normal. A trace of tricuspid regurgitation. Unable to estimate peak systolic PA pressure; inadequate TR velocity signal. Pulmonic Valve Normal PV structure and function by limited views and Doppler. AortaAortic root size (SInus of Valsalva diameter) is normal . PericardiumNo pericardial effusion is visualized. IVC/SVC/PA/PV/PleuralThe inferior vena cava is adequately visualized. The inferior vena cava size is normal . The estimated RA pressure by IVC dynamics 0-5mmHg . Chambers/Structures Left Atrium LA Volume: 45.33 ml LA Area: 16.75 cm^2 LA Vol. Index: 24 ml/m^2 Left Ventricle LVIDd: 4.69 cm LVIDs: 2.46 cm LV Septum Diastolic: 1.01 cm LV PW Diastolic: 1.01 cmLV FS: 47.6 % LVEDV Mccullough's:96.12 ml LVESV Mccullough's:30.88 mlLVEDVI: 51 ml/m^2 LVEF Mccullough's: 67.9 %LVESVI: 16 ml/m^2 LVOT Diameter: 2.06 cm Aorta Ao Root S of Soo.: 2.11 cm Doppler/Quantitative Measurements Mitral Valve MV Peak E-Wave: 0.98 m/s MV Peak A-Wave: 0.74 m/s E/A Ratio: 1.33 Peak Gradient: 3.87 mmHg Deceleration Time: 223.9 msec MV Damon. Peak: Aortic Valve Peak Velocity: 1.53 m/sMean Velocity: 1.06 m/s Peak Gradient: 9.4 mmHgMean Gradient: 5.07 mmHg AV Area (continuity): 2.22 cm^2 AV VTI: 30.87 cm AV DVI: 0.67 LVOT Peak Velocity: 0.98 m/s Peak Gradient: 3.82 mmHg Mean Velocity: 0.7 m/sMean Gradient: 2.17 mmHg LVOT Diameter: 2.06 cmLVOT VTI: 20.58 cm LVOT Area: 3.33 cm^2LVOT SV:68.56 ml LVOT CO: 5.69 l/min LVOT CI: 2.99 l/min/m^2 Procedure Note Interface, External Ris In - 09/21/2017 3:34 PM JOB TRAINING SPECIALIST Transthoracic Echocardiography Report (TTE) Demographics Patient Name JOE TAFOYA Date of Study 09/21/2017 ТАТЬЯНА Gender Female Visit Number [id number] Race Room Number 2114 Number Date of 1985 Referring Physician Chris Hennessy Age 31 year(s) Sketch Artist Vern Greenwood [facility] Casino Worker Erin Box, Interpreting Jonah Arredondo, [facility] Physician Procedure Type of Study TTE procedure:ECHO2D MODE W/O DOPPLER (STAT) Indications:Suspected Pericardial conditions. Clinical History HGB 9.3 HCT 28.8 % SLE Height: 62 inches Weight: 88.9 kg (196 lbs) BSA: 1.9 m^2 BMI: 35.85 kg/m^2 HR: 83 bpm BP: 134/65 mmHg Summary Essentially normal exam. The left ventricle is chamber size (by vol index) is normal (female - LVED vol - 29-61ml/m2). No evidence of LV hypertrophy. All of the LV segments contract normally . Global LV systolic function normal . The LVEF was measured using Mccullough's bi-plane method of disk . Normal diastolic function. LVEF by Mccullough's method of disk assessment is normal (60%) . Previous Study Compared to the previous study 04/20/2017 the following changes are seen-unable to estimate the PA systolic pressures. Signature Findings Technical Quality: Technically adequate exam. Rhythm/BP Regular sinus rhythm during the exam. Left Ventricle The left ventricle is chamber size (by vol index) is normal (female - LVED vol - 29-61ml/m2). No evidence of LV hypertrophy. All of the LV segments contract normally . Global LV systolic function normal . The LVEF was measured using Mccullough's bi-plane method of disk . Normal diastolic function. LVEF by Mccullough's method of disk assessment is normal (60%) . Left Atrium LA size is normal (16-34 ml/m2) . Right Ventricle The right ventricular chamber size and systolic function are within normal limits. Right Atrium RA cavity size is normal . Aortic Valve Normal AoV structure and function. Mitral Valve Trace mitral regurgitation. Mild MV leaflet thickening. Tricuspid Valve TV structure is normal. A trace of tricuspid regurgitation. Unable to estimate peak systolic PA pressure; inadequate TR velocity signal. Pulmonic Valve Normal PV structure and function by limited views and Doppler. Aorta Aortic root size (SInus of Valsalva diameter) is normal . Pericardium No pericardial effusion is visualized. IVC/SVC/PA/PV/Pleural The inferior vena cava is adequately visualized. The inferior vena cava size is normal . The estimated RA pressure by IVC dynamics 0-5mmHg . Chambers/Structures Left Atrium LA Volume: 45.33 ml LA Area: 16.75 cm^2 LA Vol. Index: 24 ml/m^2 Left Ventricle LVIDd: 4.69 cm LVIDs: 2.46 cm LV Septum Diastolic: 1.01 cm LV PW Diastolic: 1.01 cm LV FS: 47.6 % LVEDV Mccullough's:96.12 ml LVESV Mccullough's:30.88 ml LVEDVI: 51 ml/m^2 LVEF Mccullough's: 67.9 % LVESVI: 16 ml/m^2 LVOT Diameter: 2.06 cm Aorta Ao Root S of Soo.: 2.11 cm Doppler/Quantitative Measurements Mitral Valve MV Peak E-Wave: 0.98 m/s MV Peak A-Wave: 0.74 m/s E/A Ratio: 1.33 Peak Gradient: 3.87 mmHg Deceleration Time: 223.9 msec MV Damon. Peak: Aortic Valve Peak Velocity: 1.53 m/s Mean Velocity: 1.06 m/s Peak Gradient: 9.4 mmHg Mean Gradient: 5.07 mmHg AV Area (continuity): 2.22 cm^2 AV VTI: 30.87 cm AV DVI: 0.67 LVOT Peak Velocity: 0.98 m/s Peak Gradient: 3.82 mmHg Mean Velocity: 0.7 m/s Mean Gradient: 2.17 mmHg LVOT Diameter: 2.06 cm LVOT VTI: 20.58 cm LVOT Area: 3.33 cm^2 LVOT SV:68.56 ml LVOT CO: 5.69 l/min LVOT CI: 2.99 l/min/m^2 * D-dimer (09/21/2017 3:13 AM) Component Value Ref Range D-Dimer, Quant 3.82 (H) <0.50 MG/L FEU Specimen Performing Laboratory Blood - Arm, Left [address] [address] Narrative Intended Use: The D-Dimer Assay can be used to aid in the diagnosis of Deep Vein Thrombosis (DVT) and Pulmonary Embolism Disease (PED). In patients with low pre-test probability, various studies concerning STA Liatest D-dimer test have reported that with a cutoff value of 0.50 MG/L FEU, the Negative Predictive Value (NPV) regarding the exclusion of thrombosis is within 95-100% range. * B-type Natriuretic Factor (BNP) (09/21/2017 2:05 AM) Component Value Ref Range BNP 160 (H) 0 - 100 pg/mL Specimen Performing Laboratory Blood - Arm, Left [address] [address] * Blood gas, arterial (09/21/2017 12:39 AM) Component Value Ref Range pH, Arterial 7.51 (H) 7.35 - 7.45 pCO2, Arterial 37 35 - 45 mmHg pO2, Arterial 70 (L) 80 - 90 mmHg O2 Sat, Arterial 95.1 (L) 96.0 - 97.0 % HCO3, Arterial 29 21 - 29 mmol/L Base Excess, Arterial 6.0 (H) -2.0 - 3.0 mmol/L Patient Temperature 37.7 C FIO2 21.0 % Specimen Performing Laboratory Blood, Arterial - Arm, [facility] Right [address] [place] [address] * Phosphatidylserine Abs (IgG, IgM) (09/20/2017 9:31 PM) Component Value Ref Range Phos.Serine Ab IgG <10 U/mL Comment: <10 Negative 10-20Equivocal- Found in small percentage of the healthy population; may be reactive >20 Positive - Risk factor for thrombosis and loss PHOSPHATIDYLSERINE AB <25 U/mL (IGM) Comment: Clinical Significance: The Antiphospholipid Antibody Syndrome (APS) is a clinical pathologic correlation that includes a clinical event (e.g. thrombosis, loss, thrombocytopenia) and persistent positive Antiphospholipid Antibodies (IgM or IgG MARGARITA >40 MPL/GPL, IgM or IgG anti-B2GP1 antibodies, or a Lupus Anticoagulant). The IgA isotype has been implicated in smaller studies, but have not yet been incorporated into the APS criteria. International consensus guidelines suggest waiting at least 12 weeks before retesting to confirm antibody persistence. Reference J Thromb Haemost 2006: 4; 295. <25 Negative 25-35Equivocal- Found in small percentage of the healthy population; may be reactive >35 Positive - Risk factor for thrombosis and loss For more information on this test, go to: http://Organizer.PeopleDoc/faq/PXE928 Specimen Performing Laboratory Blood - Arm, Left [facility] [id number] [place] [address] Narrative Performing Lab EZ [facility] [id number] [place] [address] Jade Gore MD, PhD * PFA-100 (09/20/2017 9:31 PM) Component Value Ref Range COL/EPI Closure Time 120 78 - 191 Seconds COL/ADP Closure Time Comment: Test not indicated 43 - 122 Seconds Platelets 282 150 - 450 K/CU MM Specimen Performing Laboratory Blood - Arm, [place] [address] * Sodium, random urine (09/20/2017 1:42 PM) Only the most recent of 2 results within the time period is included. Component Value Ref Range Sodium Urine 86 meq/L Specimen Performing Laboratory Urine - Urine, [facility] Catch [address] [place] [address] Narrative Reference Range: No Normals * Protein, random urine (09/20/2017 1:42 PM) Only the most recent of 3 results within the time period is included. Component Value Ref Range Protein, Urine 394 (H) 0 - 14 mg/dL Specimen Performing Laboratory Urine - Urine, [facility] Catch [address] [place] [address] * Creatinine, random urine (09/20/2017 1:42 PM) Only the most recent of 3 results within the time period is included. Component Value Ref Range Creatinine, Ur 52.8 mg/dL Specimen Performing Laboratory Urine - Urine, [facility] Catch [address] [place] [address] Narrative Reference Range: No Normals * AUSTEN Titer & Pattern (09/20/2017 6:04 AM) Only the most recent of 2 results within the time period is included. Component Value Ref Range AUSTEN Titer >=1:2560 AUSTEN Pattern Homogeneous Specimen Performing Laboratory Blood [address] [address] * Antithrombin III (09/20/2017 6:04 AM) Component Value Ref Range Antithrombin III 89.0 80.0 - 120.0 % Specimen Performing Laboratory [address] [address] * Anti-Nuclear Antibody (AUSTEN) (09/20/2017 6:04 AM) Only the most recent of 2 results within the time period is included. Component Value Ref Range AUSTEN Positive (A) Negative Specimen Performing Laboratory [address] [address] * Uric acid (09/20/2017 6:04 AM) Component Value Ref Range Uric Acid 5.0 2.6 - 7.2 mg/dL Specimen Performing Laboratory [address] [address] * T4, free (09/20/2017 6:04 AM) Component Value Ref Range Free T4 0.73 0.70 - 1.48 ng/dL Specimen Performing Laboratory Blood [address] [address] * Phosphorus (09/20/2017 6:04 AM) Only the most recent of 3 results within the time period is included. Component Value Ref Range Phosphorus 3.1 2.3 - 4.7 mg/dL Specimen Performing Laboratory [address] [address] * Magnesium (09/20/2017 6:04 AM) Only the most recent of 3 results within the time period is included. Component Value Ref Range Magnesium 1.5 (L) 1.6 - 2.6 mg/dL Specimen Performing Laboratory Blood [address] [address] * Hepatic function panel (09/20/2017 6:04 AM) Only the most recent of 4 results within the time period is included. Component Value Ref Range Protein, Total 4.9 (L) 6.0 - 8.3 gm/dL Albumin 1.8 (L) 3.5 - 5.0 g/dL Total Bilirubin <0.3 0.2 - 1.2 mg/dL Bilirubin, Direct 0.1 0.1 - 0.5 mg/dL Alkaline Phosphatase 184 (H) 40 - 150 U/L AST 20 5 - 34 U/L ALT 39 6 - 55 U/L Specimen Performing Laboratory Blood [address] [address] * Jojo ink prep (09/19/2017 4:01 PM) Component Value Ref Range Jojo Ink No encapsulated yeast seen No encapsulated yeast seen Specimen Performing Laboratory Cerebrospinal Fluid - CSF [address] [address] * AFB culture + smear (09/19/2017 4:01 PM) Component Value Ref Range Result No acid-fast bacilli isolated in 42 days AFB Smear No acid fast bacilli seen Specimen Performing Laboratory Cerebrospinal Fluid - CSF [address] [address] * Cryptococcal antigen, CSF (09/19/2017 4:01 PM) Component Value Ref Range Cryptococcal Antigen, CSF Negative Negative, Interference Specimen Performing Laboratory Cerebrospinal Fluid - CSF [address] [address] * CSF culture + gram stain (09/19/2017 4:01 PM) Component Value Ref Range Result No growth Gram Stain Result No WBCs Gram Stain Result No organisms seen Specimen Performing Laboratory Cerebrospinal Fluid [address] [address] * Fungus culture + smear (09/19/2017 4:01 PM) Component Value Ref Range Result No fungus isolated in 28 days Fungus Smear No fungi seen Specimen Performing Laboratory Cerebrospinal Fluid - CSF [address] [address] * CSF cell count with differential (09/19/2017 4:01 PM) Component Value Ref Range Appearance Clear Clear Color Colorless Colorless RBCs 7 (H) 0 - 5 /cu mm WBCs 0 <=5 /cu mm RBCs Fresh? 100% Fresh # of Cells Diff'd 0 Tube Number edta Specimen Performing Laboratory Cerebrospinal Fluid - [facility] CSF, tube [address] [place] [address] * VDRL, CSF (09/19/2017 4:01 PM) Component Value Ref Range VDRL, CSF Nonreactive Nonreactive Specimen Performing Laboratory Cerebrospinal Fluid - CSF [facility] [address] [place] [address] * Protein, CSF (09/19/2017 4:01 PM) Component Value Ref Range Protein, CSF 16 15 - 45 mg/dL Specimen Performing Laboratory Cerebrospinal Fluid - [facility] CSF, tube [address] [place] [address] * Glucose, CSF (09/19/2017 4:01 PM) Component Value Ref Range Glucose, CSF 41 40 - 70 mg/dL Specimen Performing Laboratory Cerebrospinal Fluid - [facility] CSF, tube [address] [place] [address] * Osmolality, urine (09/19/2017 12:31 PM) Component Value Ref Range Osmolality, Ur 414 40 - 1400 mOsm/kg Specimen Performing Laboratory Urine [address] [address] * Eosinophil smear (09/19/2017 12:31 PM) Component Value Ref Range Eosinophil Smear No EOS seen No EOS seen Specimen Performing Laboratory Urine [address] [address] * Central Line (09/19/2017 11:53 AM) Narrative Audelia Fuller PA 09/19/2017 11:53 AM Midline Catheter Insertion Date/Time: 09/19/2017 11:48 AM Performed by: SUKUMAR FULLER Authorized by: SUKUMAR FULLER Consent: Verbal consent obtained. Consent given by: patient Patient identity confirmed: verbally with patient and arm band Indications: vascular access Preparation: skin prepped with ChloraPrep Location: left upper extremity. Ultrasound guidance: yes Sterile ultrasound techniques: sterile gel and sterile probe covers were used Number of attempts: 1 Post-procedure: dressing applied Post-procedure assessment: blood return and flush. Immediate Post-Procedure Note Date/Time: 09/19/2017 11:50 AM Assistants to the procedure: None Pre-procedure diagnosis: Metabolic acidosis Post-procedure diagnosis: Metabolic acidosis Procedures Performed: Midline Catheter Insertion Specimens removed: None Estimated blood loss (mL): None Complications: None Type of anesthesia: None Grafts or Implants: None Comments: 18 gauge PowerGlide Midline catheter to left upper extremity under ultrasound guidance. No immediate complications. * Liver-Kidney Microsome Ab (09/19/2017 6:30 AM) Component Value Ref Range LKM-1 Antibody (IgG) <20.0 See Note: U Comment: Reference Range: <=20.0 NEGATIVE 20.1-24.9EQUIVOCAL >=25.0 POSITIVE Anti-liver/kidney microsomal antibodies (Anti-LKM-1) were previously tested by indirect immunofluorescence (IF) using rodent liver/kidney substrate. Identification of a specific antibody target as cytochrome P450 IID6 has led to the current recombinant based KATIE. Antibodies to this cytochrome are present in approximately 70% of patients with autoimmune hepatitis type 2. This antibody is also present in approximately 10% of patients with hepatitis C infection. Specimen Performing Laboratory Blood [facility] [address] [address] Narrative Performing Lab EZ [facility] [address] [address] Jade Gore MD, PhD * Iron, TIBC, % sat. (without ferritin) (09/19/2017 6:30 AM) Component Value Ref Range Iron 33 (L) 40 - 160 ug/dL TIBC 160 (L) 250 - 450 ug/dL Iron % Saturation 21 20 - 55 % Specimen [place] [address] * HIV-1 Antigen with HIV-1/2 Antibody (09/19/2017 6:30 AM) Component Value Ref Range HIV-1 Antigen with HIV Nonreactive Nonreactive 1&2 Antibody Specimen [place] [address] * Actin (Smooth Muscle) Antibody, IgG (09/19/2017 6:30 AM) Component Value Ref Range Anti-Smooth Muscle Ab <20 See Note: U Comment: Reference Range: <20 NEGATIVE > OR=20 POSITIVE Antibodies recognizing actin are the main component of smooth muscle antibodies associated with autoimmune liver disease. Actin antibodies are found in approximately 75% of patients with autoimmune hepatitis (AIH) type 1, approximately 65% of patients with autoimmune cholangitis, approximately 30% of patients with primary biliary cirrhosis, and approximately 2% of healthy people. High values are closely correlated with AIH type 1. Specimen Performing Laboratory Blood [facility] [place] [address] [address] Narrative Performing Lab EZ [facility] [address] [address] Jade Gore MD, PhD * Zeuze-8-vulizvsubkg (09/19/2017 6:30 AM) Component Value Ref Range A-1 Antitrypsin 182.60 90.00 - 200.00 mg/dL Specimen Performing [place] [address] * Ceruloplasmin (09/19/2017 6:30 AM) Component Value Ref Range Ceruloplasmin 27 18 - 53 mg/dL Comment: Adults:Males: 18-36 mg/dL Females: 18-53 mg/dL Pediatrics:Males (mg/dL)Females (mg/dL) 0-30 Days 8-25 3-28 31 Days-11 Month 15-4815-43 1-3 Lnnpm55-12 29-54 4-6 Rdvro60-57 26-54 7-9 Vcwlv81-91 23-48 10-12 Cxour02-92 21-48 13-15 Ijpvu65-23 21-46 16-18 Tcauh07-13 22-50 The pediatric ranges are derived from the following criteria: Latricia SJ, Moises SAMPSON, Joanne J et al Pediatric reference ranges for Qrjz-1-Qdhpxgsaocfzw and ceruloplasmin. Clin. Chem 1997; 43:S1999 Pediatric Reference Ranges, 2nd., SF Latriciaet al. editors. [employer], [place], [place] 1997. Specimen Performing Laboratory Blood [facility] [address] [address] Narrative Performing Lab *SPL [facility], [address] [place] [address] Jade Gore MD, PhD * Ferritin (09/19/2017 6:30 AM) Component Value Ref Range Ferritin 238 5 - 275 ng/mL Specimen Performing Laboratory Blood [address] [address] * Lipid panel (09/19/2017 6:30 AM) Component Value Ref Range Triglycerides 185 mg/dL Cholesterol 166 mg/dL HDL 41 mg/dL LDL Calculated 88 mg/dL Specimen Performing Laboratory Blood [facility] [address] [place] [address] Narrative Triglyceride Reference Range: Low Risk <150 [id number] High Risk 200-499 Very High Risk>=500 Cholesterol Reference Range: Low Risk <200 Qnlfiseurj927-020 High Risk>240 HDL Cholesterol Reference Range: Low Risk >=60 High Risk <40 LDL Cholesterol Reference Range: Optimal<100 Near Aknjuay926-208 Pkbfcvbywn019-956 Yrbk501-522 Very High >=190 * MR brain without & with IV contrast (09/19/2017 4:18 AM) Specimen Performing Laboratory [employer] Narrative FINAL REPORT MRI Brain with and without contrast INDICATION: Headache, intracranial hypertension. TECHNIQUE: Multiplanar, multisequence MR imaging of the brain was performed, utilizing the following imaging sequences: Axial T1, T2, FLAIR, DWI, GRE; sagittal T1; postcontrast axial, sagittal, and coronal T1. COMPARISON: CT head 09/17/2017 FINDINGS: There is nonspecific mild T2/FLAIR hyperintensity in the bilateral middle cerebellar peduncles, with similar findings in the right greater than left cerebellar cortices and possibly the insular cortices. No suspicious enhancement, diffusion restriction, or susceptibility artifact is seen. Differential considerations include infection (e.g. viral infection), autoimmune encephalitis, inflammatory processes (e.g. sarcoid, vasculitis) and potentially atypical PRES, demyelinating disease (e.g. ADEM) and paraneoplastic syndrome. The pattern is not typical for neoplasm. There is no acute infarct, hematoma, extra axial collection, hydrocephalus, or mass like enhancement. The major vascular flow voids are maintained. No orbital lesions are seen. The cerebellar tonsils are minimally low lying, but not peglike. The sinuses and mastoid air cells are well aerated. The sella is unremarkable. The calvarium is intact. IMPRESSION: 1. Nonspecific signal changes in the middle cerebellar peduncles, cerebellar cortices, and possibly insular cortices. Differential considerations are discussed above, including infectious, autoimmune, and inflammatory processes and atypical PRES. Advise neurologic correlation and consider CSF analysis. 2. No evidence of acute infarct, hemorrhage, or hydrocephalus. Signed: Raf Jacinto MD Report Verified Date/Time:09/19/2017 08:06:32 Reading Location: [facility] C013 Neuro Reading Room Procedure Note Interface, External Ris In - 09/19/2017 8:08 AM JOB TRAINING SPECIALIST FINAL REPORT MRI Brain with and without contrast INDICATION: Headache, intracranial hypertension. TECHNIQUE: Multiplanar, multisequence MR imaging of the brain was performed, utilizing the following imaging sequences: Axial T1, T2, FLAIR, DWI, GRE; sagittal T1; postcontrast axial, sagittal, and coronal T1. COMPARISON: CT head 09/17/2017 FINDINGS: There is nonspecific mild T2/FLAIR hyperintensity in the bilateral middle cerebellar peduncles, with similar findings in the right greater than left cerebellar cortices and possibly the insular cortices. No suspicious enhancement, diffusion restriction, or susceptibility artifact is seen. Differential considerations include infection (e.g. viral infection), autoimmune encephalitis, inflammatory processes (e.g. sarcoid, vasculitis) and potentially atypical PRES, demyelinating disease (e.g. ADEM) and paraneoplastic syndrome. The pattern is not typical for neoplasm. There is no acute infarct, hematoma, extra axial collection, hydrocephalus, or mass like enhancement. The major vascular flow voids are maintained. No orbital lesions are seen. The cerebellar tonsils are minimally low lying, but not peglike. The sinuses and mastoid air cells are well aerated. The sella is unremarkable. The calvarium is intact. IMPRESSION: 1. Nonspecific signal changes in the middle cerebellar peduncles, cerebellar cortices, and possibly insular cortices. Differential considerations are discussed above, including infectious, autoimmune, and inflammatory processes and atypical PRES. Advise neurologic correlation and consider CSF analysis. 2. No evidence of acute infarct, hemorrhage, or hydrocephalus. Signed: Raf Jacinto MD Report Verified Date/Time: 09/19/2017 08:06:32 Reading Location: [facility] C013V Neuro Reading Room * MRA head without IV contrast (09/19/2017 4:18 AM) Specimen Performing Laboratory [employer] [facility] Narrative FINAL REPORT MRA head and MRV head without contrast INDICATION: Idiopathic intracranial hypertension., Headache TECHNIQUE: 3-D piau-iq-ccliny MRA and 2-D gqrb-fg-wdbvhi MRV of the head was obtained with generation of maximal intensity projection reconstructions. FINDINGS: MRA head: There is no major branch occlusion or focal stenosis in the proximal sh[place]necock of Jacques vessels. There are conical protuberances at the origins of the posterior communicating arteries measuring up to 2 mm on the right suggestive of infundibula. MRV head: There is no MRV evidence of acute dural venous sinus thrombosis or sinus stenosis. A prominent left transverse sinus arachnoid granulation is present. There is mild developmental asymmetry of the transverse and sigmoid sinus systems. IMPRESSION: 1. No sh[place] of [place] major branch occlusion or focal stenosis. 2. Posterior communicating artery infundibular origins. 3. No MRV evidence of dural venous sinus thrombosis or stenosis. Signed: Raf Jacinto MD Report Verified Date/Time:09/19/2017 08:06:47 Reading Location: [address] Neuro Reading Room Procedure Note Interface, External Ris In - 09/19/2017 8:08 AM JOB TRAINING SPECIALIST FINAL REPORT MRA head and MRV head without contrast INDICATION: Idiopathic intracranial hypertension., Headache TECHNIQUE: 3-D bexq-ag-yagtcg MRA and 2-D pvrn-ie-nhfomh MRV of the head was obtained with generation of maximal intensity projection reconstructions. FINDINGS: MRA head: There is no major branch occlusion or focal stenosis in the proximal [place] vessels. There are conical protuberances at the origins of the posterior communicating arteries measuring up to 2 mm on the right suggestive of infundibula. MRV head: There is no MRV evidence of acute dural venous sinus thrombosis or sinus stenosis. A prominent left transverse sinus arachnoid granulation is present. There is mild developmental asymmetry of the transverse and sigmoid sinus systems. IMPRESSION: 1. No sh[place] of Jacques major branch occlusion or focal stenosis. 2. Posterior communicating artery infundibular origins. 3. No MRV evidence of dural venous sinus thrombosis or stenosis. Signed: Raf Jacinto MD Report Verified Date/Time: 09/19/2017 08:06:47 Reading Location: [address] Neuro Reading Room * Stool Calprotectin (09/18/2017 11:38 AM) Component Value Ref Range Scan Result Specimen Performing Laboratory Stool [facility] [address] [place] [address] * Giardia antigen (09/18/2017 11:38 AM) Component Value Ref Range Giardia Antigen Not detected Not detected Comment: NOTE: Due to intermittent shedding, one negative sample does not necessarily rule out the presence of a parasitic infection. Specimen Performing Laboratory Stool [facility] [address] [address] Narrative Performing Lab *[facility], [address] [place] [address] Jade Gore MD, PhD * Clostridium difficile Toxin PCR (09/18/2017 11:23 AM) Component Value Ref Range C.Diff Toxin, PCR Not Detected Not Detected Specimen [place] [address] Narrative This qualitative real-time polymerase chain reaction assay detects the tcdB gene, encoded on the C.difficile pathogenicity locus (PaLoc).The product of tcdB, toxin B, is a cytotoxin essential for causing C.difficile-associated disease (CDAD) and is found in virtually all toxigenic C.difficile. This assay is performed for patients suspected of having either community- acquired or nosocomial CDAD.Accordingly, only symptomatic patients should be tested and formed stools will be rejected unless ileus is present (i.e., specified when ordering).Patients may be colonized with toxigenic C.dif ficile strains not causing active disease; therefore, clinical correlation is needed when deciding how to manage patients with a positive test result. The assay has not been validated as a test of cure as amplifiable nucleic acid may persist after effective treatment; therefore, follow-up testing of a positive result is not recommended. * STOOL PATH CHARGE (09/18/2017 11:22 AM) Component Value Ref Range Pathogen exam charged Done Specimen Performing Laboratory Stool - Per Rectum [address] [address] * Shiga Toxin Screen (09/18/2017 11:22 AM) Component Value Ref Range Shiga toxin 1 Not detected Not detected Shiga toxin 2 Not detected Not detected Specimen Performing Laboratory Stool - Per Rectum [address] [address] * Ova and Parasite Examination (09/18/2017 11:22 AM) Component Value Ref Range O&P Direct Smear No ova or parasites seen No ova or parasites seen O&P Concentrate Smear No ova or parasites seen No ova or parasites seen O&P Trichrome Smear No ova or parasites seen No ova or parasites seen Specimen Performing Laboratory Stool - Per Rectum [address] [address] * Fecal leukocytes (09/18/2017 11:22 AM) Component Value Ref Range Fecal Leukocytes No fecal leukocytes seen No fecal leukocytes seen Specimen Performing Laboratory Stool - Per Rectum [address] [address] * Stool culture + Shiga toxin (09/18/2017 11:22 AM) Component Value Ref Range Result No Salmonella, Shigella or Campylobacter isolated Specimen Performing Laboratory Stool - Per Rectum [address] [address] * Hepatitis panel, acute (09/18/2017 4:30 AM) Component Value Ref Range Hep A IgM Nonreactive Nonreactive Hep B C IgM Nonreactive Nonreactive Hepatitis C Ab Nonreactive Nonreactive hepatitis B Surface Ag Nonreactive Nonreactive Specimen Performing Laboratory Blood - Arm, Left [address] [address] * Critical Care (09/17/2017 7:09 PM) Narrative Devi Perez MD 09/17/20177:09 PM Critical Care Performed by: DEVI PEREZ Authorized by: DEVI PEREZ Total critical care time: 36 minutes Critical care time was exclusive of separately billable procedures and treating other patients. Critical care was necessary to treat or prevent imminent or life-threatening deterioration of the following conditions: dehydration and metabolic crisis. Critical care was time spent personally by me on the following activities: development of treatment plan with patient or surrogate, discussions with consultants, evaluation of patient's response to treatment, examination of patient, obtaining history from patient or surrogate, ordering and performing treatments and interventions, ordering and review of laboratory studies, ordering and review of radiographic studies, pulse oximetry, re-evaluation of patient's condition and review of old charts. * CT abdomen/pelvis with IV contrast (09/17/2017 1:46 PM) Specimen Performing Laboratory [facility] Narrative FINAL REPORT CT OF THE ABDOMEN AND PELVIS CLINICAL HISTORY:Abdominal pain TECHNIQUE: CT of the abdomen and pelvis is performed with intravenous contrast administration. This exam was performed according to our departmental dose-optimization program which includes automated exposure control, adjustment of the mA and/or kV according to patient size and/or use of iterative reconstruction technique. COMPARISON FILM:None DISCUSSION: LOWER THORAX: Trace bilateral pleural effusions and mild interstitial edema. Trace pericardial fluid. HEPATOBILIARY: Diffuse hepatic steatosis. Main portal vein is patent. The biliary ductal dilation. PANCREAS: No pancreatic ductal dilation. No pancreatic lesion. SPLEEN: The spleen is borderline enlarged measuring 12.6 cm in craniocaudal dimension. ADRENALS: No nodule. KIDNEYS/URETERS: No hydronephrosis or hydroureter. No solid lesion. PELVIC ORGANS/BLADDER: There is a 1.5 cm peripherally enhancing structure within the right adnexum, possibly a hemorrhagic cyst or corpus luteal cyst. GI TRACT: No bowel wall thickening or distention. Normal appendix. PERITONEUM/RETROPERITONEUM: Trace free pelvic fluid is likely physiologic. LYMPH NODES: No upper abdominal, retroperitoneal, mesenteric, or pelvic lymphadenopathy. VESSELS: Abdominal aorta normal in caliber. BONES AND SOFT TISSUES: No destructive osseous lesion. IMPRESSION: Diffuse hepatic steatosis and borderline splenomegaly. Trace free fluid in the pelvis is likely physiologic. A 1.5 cm peripherally enhancing structure in the right adnexum is likely a hemorrhagic cyst or corpus luteum. Otherwise, no acute CT findings in the abdomen or pelvis. Signed: Gilberto Mckeon MD Report Verified Date/Time:09/17/2017 13:57:22 Reading Location: [facility] B1 C013Y CT Body Reading Room Procedure Note Interface, External Ris In - 09/17/2017 1:59 PM [employer] TRA[employer]IST FINAL REPORT CT OF THE ABDOMEN AND PELVIS CLINICAL HISTORY: Abdominal pain TECHNIQUE: CT of the abdomen and pelvis is performed with intravenous contrast administration. This exam was performed according to our departmental dose-optimization program which includes automated exposure control, adjustment of the mA and/or kV according to patient size and/or use of iterative reconstruction technique. COMPARISON FILM: None DISCUSSION: LOWER THORAX: Trace bilateral pleural effusions and mild interstitial edema. Trace pericardial fluid. HEPATOBILIARY: Diffuse hepatic steatosis. Main portal vein is patent. The biliary ductal dilation. PANCREAS: No pancreatic ductal dilation. No pancreatic lesion. SPLEEN: The spleen is borderline enlarged measuring 12.6 cm in craniocaudal dimension. ADRENALS: No nodule. KIDNEYS/URETERS: No hydronephrosis or hydroureter. No solid lesion. PELVIC ORGANS/BLADDER: There is a 1.5 cm peripherally enhancing structure within the right adnexum, possibly a hemorrhagic cyst or corpus luteal cyst. GI TRACT: No bowel wall thickening or distention. Normal appendix. PERITONEUM/RETROPERITONEUM: Trace free pelvic fluid is likely physiologic. LYMPH NODES: No upper abdominal, retroperitoneal, mesenteric, or pelvic lymphadenopathy. VESSELS: Abdominal aorta normal in caliber. BONES AND SOFT TISSUES: No destructive osseous lesion. IMPRESSION: Diffuse hepatic steatosis and borderline splenomegaly. Trace free fluid in the pelvis is likely physiologic. A 1.5 cm peripherally enhancing structure in the right adnexum is likely a hemorrhagic cyst or corpus luteum. Otherwise, no acute CT findings in the abdomen or pelvis. Signed: Gilberto Mckeon MD Report Verified Date/Time: 09/17/2017 13:57:22 Reading Location: [address] Body Reading Room * Blood gas, venous (09/17/2017 1:12 PM) Component Value Ref Range pH, Maximiliano 7.32 7.32 - 7.42 pCO2, Maximiliano 30 (L) 41 - 51 mmHg pO2, Maximiliano 18 (L) 25 - 40 mmHg O2 Sat, Maximiliano 25.3 (L) 40.0 - 70.0 % HCO3, Maximiliano 15 (L) 21 - 29 mmol/L Base Excess, Maximiliano -9.9 (L) -2.0 - 3.0 mmol/L Patient Temperature 37.0 C FIO2 21.0 % Specimen Performing Laboratory Blood - Arm, [place] [address] * POC-Glucose meter (09/17/2017 11:14 AM) Component Value Ref Range POC-Glucose Meter 119 (H)Comment: TESTED AT [address] 70 - 110 mg/dL [place] [id number] Specimen Performing Laboratory Blood [address] [address] * CBC (Hemogram only) (09/03/2017 12:34 PM) Component Value Ref Range WBC 3.2 (L) 3.5 - 10.5 K/L RBC 3.73 (L) 3.93 - 5.22 M/L Hemoglobin 10.9 (L) 11.2 - 15.7 GM/DL Hematocrit 33.4 (L) 34.1 - 44.9 % MCV 89.5 79.4 - 94.8 fL MCH 29.2 25.6 - 32.2 pg MCHC 32.6 32.2 - 35.5 GM/DL RDW 13.1 11.7 - 14.4 % Platelets 241 150 - 450 K/CU MM MPV 10.4 9.4 - 12.3 fL nRBC 0 0 - 0 /100 WBC Specimen Performing Laboratory Blood - Arm, Right [address] [address] after 05/21/2017
--- OUTSIDE RECORDS SUMMARY | 2018-05-22 14:51 | XMS REPORT ---
Author [facility] Address Unknown Phone Unavailable Care Team Providers Care Medical Billing Representative Name Role Phone FERNANDO HERNANDEZ Unavailable Unavailable MORGAN REDDY Unavailable Unavailable OFORDASHLEY DAO Unavailable Unavailable PHIL DOMINGUEZ Unavailable Unavailable Justina STEARNS Unavailable Unavailable SAMORLANDO REESE Unavailable Unavailable Payers Payer Name Policy Type Policy Number Effective Date Expiration Date Problems This patient has no known problems. Allergies, Adverse Reactions, Alerts Allergy Name Allergy Type Status Severity Reaction(s) Onset Date Inactive Date Treating Clinician Comments No Known Allergies DA Active U 2017-09-12 00:00:00 Medications This patient has no known medications. Results Test Description Test Time Test Comments Text Results Atomic Results Result Comments C-REACTIVE PROTEIN 2018-05-12 00:18:00 C-REACTIVE PROTEIN (BEAKER) (test pnli=525) 1.94 mg/dL 0.00-0.50 COMPLEMENT COMPONENT [id number] 23:07:00* Test Item Value Reference Range Comments C3 COMPLEMENT (BEAKER) (test noml=403) 68 mg/dL 82-193 URINALYSIS W/ [id number] 22:24:00* Test Item Value Reference Range Comments COLOR (BEAKER) (test eqna=949) Light Yellow CLARITY (BEAKER) (test qvca=164) Clear SPECIFIC GRAVITY UA (BEAKER) (test mdyc=444) 1.014 1.001-1.035 PH UA (BEAKER) (test tpvh=568) 6.0 5.0-8.0 PROTEIN UA (BEAKER) (test yegn=025) 300 mg/dL Negative GLUCOSE UA (BEAKER) (test ijkx=701) Negative Negative KETONES UA (BEAKER) (test xyuw=508) Negative Negative BILIRUBIN UA (BEAKER) (test kuws=026) Negative Negative BLOOD UA (BEAKER) (test rxxd=893) Moderate Negative NITRITE UA (BEAKER) (test ulmx=476) Negative Negative LEUKOCYTE ESTERASE UA (BEAKER) (test fxhf=579) Negative Negative UROBILINOGEN UA (BEAKER) (test bxqt=402) 0.2 mg/dL 0.2-1.0 RBC UA (BEAKER) (test twcx=775) 9 /HPF WBC UA (BEAKER) (test vaws=940) 4 /HPF BACTERIA (BEAKER) (test usis=287) Rare MUCUS (BEAKER) (test xdfb=7857) Rare SQUAMOUS EPITHELIAL (BEAKER) (test jeih=625) < /HPF HYALINE CASTS (BEAKER) (test zfrz=019) 7 /LPF SOURCE(BEAKER) (test wibz=6559) TSH/FREE T4 IF [id number] 21:45:00* Test Item Value Reference Range Comments THYROID STIMULATING HORMONE (BEAKER) (test ouwg=102) 4.50 uIU/mL 0.35-4.94 RAD, CHEST, 2 [id number] 21:41:00Reason for exam:->LUPUSFINAL REPORT TECHNIQUE: Frontal and lateral views of the chest. INDICATION: Lupus. COMPARISON: Chest radiograph from 04/20/2018. FINDINGS: LINES/TUBES: None. LUNGS: Low lung volumes. Streaky left basal atelectasis PLE URA: No pleural effusion or pneumothorax. HEART AND MEDIASTINUM: The cardiomedia stinal silhouette is within normal limits. SOFT TISSUES AND BONES: Leftward conv ex curvature of the thoracolumbar spine. IMPRESSION:Mild, subsegmental left bas ilar atelectasis. Otherwise, no acute cardiopulmonary abnormalities. The pleural effusions have resolved. Signed: Eliceo Burch MDReport Verified Date/Time: 05/11 21:41:24 Reading Location: [facility] C013W Consult Reading Room [facility] signed by: ELICEO BURCH MD on 05/11/2018 09:41 PM TROPONIN I 2018-05-11 21:31:00* Test Item Value Reference Range Comments TROPONIN I (BEAKER) (test kxhw=107) < ng/mL 0.00-0.03 Troponin I (TnI) levels must be interpreted in the context of the presenting sym ptoms and the clinical findings. Elevated TnI levels indicate myocardial damage, but are not specific for ischemic heart disease. Elevated TnI levels are seen in patients with other cardiac conditions (including myocarditis and congestive h eart failure), and slight TnI elevations occur in patients with other conditions , including sepsis, renal failure, acidosis, acute neurological disease, and per sistent tachyarrhythmia.COMPREHENSIVE METABOLIC [id number] 21:28:00* Test Item Value Reference Range Comments TOTAL PROTEIN (BEAKER) (test rzix=963) 6.3 gm/dL 6.0-8.3 Specimen slightly hemolyzed ALBUMIN (BEAKER) (test dvuo=2467) 2.6 g/dL 3.5-5.0 Specimen slightly hemolyzed ALKALINE PHOSPHATASE (BEAKER) (test empv=554) 84 U/L 40-150 BILIRUBIN TOTAL (BEAKER) (test plnl=529) 0.2 mg/dL 0.2-1.2 Specimen slightly hemolyzed SODIUM (BEAKER) (test bdtq=438) 138 meq/L 136-145 POTASSIUM (BEAKER) (test gzqj=933) 4.5 meq/L 3.5-5.1 Specimen slightly hemolyzed CHLORIDE (BEAKER) (test xfgg=401) 117 meq/L 98-107 CO2 (BEAKER) (test icnh=238) 16 meq/L 22-29 BLOOD UREA NITROGEN (BEAKER) (test kphb=002) 21 mg/dL 7-21 CREATININE (BEAKER) (test xoij=210) 0.84 mg/dL 0.57-1.25 Specimen slightly hemolyzed GLUCOSE RANDOM (BEAKER) (test wcpc=113) 90 mg/dL 70-105 CALCIUM (BEAKER) (test hznv=700) 7.8 mg/dL 8.4-10.2 AST (SGOT) (BEAKER) (test rumm=037) 23 U/L 5-34 Specimen slightly hemolyzed ALT (SGPT) (BEAKER) (test qkve=376) 15 U/L 6-55 Specimen slightly hemolyzed EGFR (BEAKER) (test lmur=4319) mL/min/1.73 sq m INSUFFICIENT CLINICAL DATA TO CALCULATE ESTIMATED GFR. COMPLEMENT COMPONENT [id number] 21:23:00* Test Item Value Reference Range Comments C4 COMPLEMENT (BEAKER) (test umuq=838) 11 mg/dL 15-57 CBC W/PLT COUNT & AUTO [id number] 21:04:00* Test Item Value Reference Range Comments WHITE BLOOD CELL COUNT (BEAKER) (test ejgd=866) 3.8 K/ L 3.5-10.5 RED BLOOD CELL COUNT (BEAKER) (test sfpj=856) 2.94 M/ L 3.93-5.22 HEMOGLOBIN (BEAKER) (test yuyh=275) 8.7 GM/DL 11.2-15.7 HEMATOCRIT (BEAKER) (test fbsx=179) 26.5 % 34.1-44.9 MEAN CORPUSCULAR VOLUME (BEAKER) (test adoq=939) 90.1 fL 79.4-94.8 MEAN CORPUSCULAR HEMOGLOBIN (BEAKER) (test lhjd=551) 29.6 pg 25.6-32.2 MEAN CORPUSCULAR HEMOGLOBIN CONC (BEAKER) (test jiau=323) 32.8 GM/DL 32.2-35.5 RED CELL DISTRIBUTION WIDTH (BEAKER) (test uwiv=691) 14.8 % 11.7-14.4 PLATELET COUNT (BEAKER) (test ogvq=927) 298 K/CU MM 150-450 MEAN PLATELET VOLUME (BEAKER) (test nmkd=561) 11.0 fL 9.4-12.3 NUCLEATED RED BLOOD CELLS (BEAKER) (test jyfr=741) 0 /100 WBC 0-0 NEUTROPHILS RELATIVE PERCENT (BEAKER) (test blnr=985) 79 % LYMPHOCYTES RELATIVE PERCENT (BEAKER) (test qbqy=655) 15 % MONOCYTES RELATIVE PERCENT (BEAKER) (test kahx=708) 5 % EOSINOPHILS RELATIVE PERCENT (BEAKER) (test vpgj=836) 1 % BASOPHILS RELATIVE PERCENT (BEAKER) (test cvhx=253) 0 % NEUTROPHILS ABSOLUTE COUNT (BEAKER) (test lino=894) 2.99 K/ L 1.56-6.13 LYMPHOCYTES ABSOLUTE COUNT (BEAKER) (test ljdx=468) 0.57 K/ L 1.18-3.74 MONOCYTES ABSOLUTE COUNT (BEAKER) (test glyw=549) 0.17 K/ L 0.24-0.36 EOSINOPHILS ABSOLUTE COUNT (BEAKER) (test blau=754) 0.03 K/ L 0.04-0.36 BASOPHILS ABSOLUTE COUNT (BEAKER) (test wkmw=651) 0.01 K/ L 0.01-0.08 IMMATURE GRANULOCYTES-RELATIVE PERCENT (BEAKER) (test cdbf=4510) 0 % 0-1 URINALYSIS W/ [id number] 22:25:00* Test Item Value Reference Range Comments COLOR (BEAKER) (test makz=567) Yellow CLARITY (BEAKER) (test cjxv=288) Hazy SPECIFIC GRAVITY UA (BEAKER) (test bhfg=100) 1.013 1.001-1.035 PH UA (BEAKER) (test gfui=677) 6.0 5.0-8.0 PROTEIN UA (BEAKER) (test rund=534) 200 mg/dL Negative GLUCOSE UA (BEAKER) (test zicx=651) Negative Negative KETONES UA (BEAKER) (test ntpy=609) Negative Negative BILIRUBIN UA (BEAKER) (test lmub=664) Negative Negative BLOOD UA (BEAKER) (test axky=609) Small Negative NITRITE UA (BEAKER) (test jyer=549) Negative Negative LEUKOCYTE ESTERASE UA (BEAKER) (test gwbr=467) Moderate Negative UROBILINOGEN UA (BEAKER) (test chgq=297) 0.2 mg/dL 0.2-1.0 RBC UA (BEAKER) (test xuuz=641) 6 /HPF WBC UA (BEAKER) (test ukxk=938) 17 /HPF BACTERIA (BEAKER) (test oint=903) Rare SQUAMOUS EPITHELIAL (BEAKER) (test almb=059) 5 /HPF HYALINE CASTS (BEAKER) (test yrho=785) 25 /LPF SOURCE(BEAKER) (test pnid=0128) SCREEN, [id number] 22:22:00* Test Item Value Reference Range Comments TEST URINE (BEAKER) (test trhw=711) Negative TROPONIN [id number] 20:29:00* Test Item Value Reference Range Comments TROPONIN I (BEAKER) (test foca=557) < ng/mL 0.00-0.03 Troponin I (TnI) levels must be interpreted in the context of the presenting sym ptoms and the clinical findings. Elevated TnI levels indicate myocardial damage, but are not specific for ischemic heart disease. Elevated TnI levels are seen in patients with other cardiac conditions (including myocarditis and congestive h eart failure), and slight TnI elevations occur in patients with other conditions , including sepsis, renal failure, acidosis, acute neurological disease, and per sistent tachyarrhythmia.BASIC METABOLIC [id number] 20:23:00* Test Item Value Reference Range Comments SODIUM (BEAKER) (test vqmz=806) 138 meq/L 136-145 POTASSIUM (BEAKER) (test utnp=312) 3.7 meq/L 3.5-5.1 CHLORIDE (BEAKER) (test mrxa=218) 114 meq/L 98-107 CO2 (BEAKER) (test pugz=349) 16 meq/L 22-29 BLOOD UREA NITROGEN (BEAKER) (test yewb=680) 21 mg/dL 7-21 CREATININE (BEAKER) (test nbah=687) 1.56 mg/dL 0.57-1.25 GLUCOSE RANDOM (BEAKER) (test jrtx=699) 84 mg/dL 70-105 CALCIUM (BEAKER) (test ybnw=160) 8.4 mg/dL 8.4-10.2 EGFR (BEAKER) (test bcib=1869) mL/min/1.73 sq m INSUFFICIENT CLINICAL DATA TO CALCULATE ESTIMATED GFR. RAD, CHEST, 2 [id number] 20:14:00Reason for exam:->chest painShould this be performed at the bedside?->NoIs the patient ?->UnknownFINAL REPORT CHEST, AP AND LATERAL. HISTORY: Chest pain. COMPARISON: 09/24/2017. IMPRESSION: The trachea is midline. There are patchy increased opacities noted within the lung bases bilaterally which could reflect ate lectasis/scarring. An underlying airspace process cannot be entirely excluded. T here is no evidence for large focal consolidation, pneumothorax, or significant pleural effusion. The cardiomediastinal silhouette is stable in appearance. No a cute osseous abnormality is identified. Signed: Neeraj Jerry MDReport Verified Date/Time: 04/20/2018 20:14:08 Reading Location: [address] Consult Reading R oom W/PLT COUNT & AUTO [id number] 20:07:00* Test Item Value Reference Range Comments WHITE BLOOD CELL COUNT (BEAKER) (test wwsw=886) 4.2 K/ L 3.5-10.5 RED BLOOD CELL COUNT (BEAKER) (test npra=004) 2.58 M/ L 3.93-5.22 HEMOGLOBIN (BEAKER) (test kgcp=006) 7.6 GM/DL 11.2-15.7 HEMATOCRIT (BEAKER) (test lbym=770) 23.0 % 34.1-44.9 MEAN CORPUSCULAR VOLUME (BEAKER) (test wojv=054) 89.1 fL 79.4-94.8 MEAN CORPUSCULAR HEMOGLOBIN (BEAKER) (test kcuj=628) 29.5 pg 25.6-32.2 MEAN CORPUSCULAR HEMOGLOBIN CONC (BEAKER) (test csxg=330) 33.0 GM/DL 32.2-35.5 RED CELL DISTRIBUTION WIDTH (BEAKER) (test vfpi=386) 12.3 % 11.7-14.4 PLATELET COUNT (BEAKER) (test zjva=313) 227 K/CU MM 150-450 MEAN PLATELET VOLUME (BEAKER) (test njrw=686) 9.5 fL 9.4-12.3 NUCLEATED RED BLOOD CELLS (BEAKER) (test ovwc=642) 0 /100 WBC 0-0 NEUTROPHILS RELATIVE PERCENT (BEAKER) (test ehnl=357) 81 % LYMPHOCYTES RELATIVE PERCENT (BEAKER) (test hfyg=203) 13 % MONOCYTES RELATIVE PERCENT (BEAKER) (test zfzq=315) 6 % EOSINOPHILS RELATIVE PERCENT (BEAKER) (test fkxb=795) 1 % BASOPHILS RELATIVE PERCENT (BEAKER) (test jzcp=724) 0 % NEUTROPHILS ABSOLUTE COUNT (BEAKER) (test dcvd=740) 3.37 K/ L 1.56-6.13 LYMPHOCYTES ABSOLUTE COUNT (BEAKER) (test zriv=234) 0.53 K/ L 1.18-3.74 MONOCYTES ABSOLUTE COUNT (BEAKER) (test vjgz=404) 0.23 K/ L 0.24-0.36 EOSINOPHILS ABSOLUTE COUNT (BEAKER) (test lpmj=720) 0.04 K/ L 0.04-0.36 BASOPHILS ABSOLUTE COUNT (BEAKER) (test zeok=814) 0.00 K/ L 0.01-0.08 IMMATURE GRANULOCYTES-RELATIVE PERCENT (BEAKER) (test kpqu=7708) 0 % 0-1 CT, CHEST WITH IV CONTRAST- PE TEST [id number] 20:11:00Reason for exam:-> MIGRAINEReason for exam:->BACK PAINReason for exam:->SHORTNESS OF BREATHIs the patient ?->UnknownWhat is the patient's sedation requirement?->No SedationFINAL REPORT CLINICAL HISTORY: Is pain and shortness of breath FINDINGS: Multiple axial images of the chest were performed after the uncomplicated administration of IV contrast, utilizing a pulmonary embolism protocol. Post-processing coronal reformats were created and interpreted. This exam was performed according to our departmental dose- optimization program, which includes automated exposure control, [...] significant findings. IMPRESSION: No pulmonary embolism. Signed: Chava López MDRnathan Verified Date/Time: 04/04/2018 20:11:45 Reading Location: [address] Reading Room , BRAIN, WITHOUT [id number] 18:55:00Reason for exam:-> MIGRAINEIs the patient ?->UnknownWhat is the patient's sedation requirement?->No SedationFINAL REPORT CT head without contrast 04/04/2018 6:54 PM CLINICAL HISTORY: Headache, acute, norm neuro examMIGRAINE TECHNIQUE: Axial noncontrast CT images through the [...] further evaluation with MRI is recommended. Signed: Krishna Roque MD Report Verified Date/Time: 04/04/2018 18:55:24 Reading Location: [facility] B1 C013V [address] [facility] Reading Room Electronically signed by: KRISHNA ROQUE M.D. on 018 06:55 PM BASIC METABOLIC [id number] 15:18:00* Test Item Value Reference Range Comments SODIUM (BEAKER) (test xfoe=837) 140 meq/L 136-145 POTASSIUM (BEAKER) (test chca=729) 4.1 meq/L 3.5-5.1 CHLORIDE (BEAKER) (test vaff=785) 115 meq/L 98-107 CO2 (BEAKER) (test hugy=013) 18 meq/L 22-29 BLOOD UREA NITROGEN (BEAKER) (test ahxv=618) 16 mg/dL 7-21 CREATININE (BEAKER) (test xcpz=411) 0.91 mg/dL 0.57-1.25 GLUCOSE RANDOM (BEAKER) (test inmb=996) 82 mg/dL 70-105 CALCIUM (BEAKER) (test htet=400) 9.0 mg/dL 8.4-10.2 EGFR (BEAKER) (test lwwd=0990) mL/min/1.73 sq m INSUFFICIENT CLINICAL DATA TO CALCULATE ESTIMATED GFR. CBC W/PLT COUNT & AUTO [id number] 14:57:00* Test Item Value Reference Range Comments WHITE BLOOD CELL COUNT (BEAKER) (test qipr=455) 3.3 K/ L 3.5-10.5 RED BLOOD CELL COUNT (BEAKER) (test ufqa=567) 3.55 M/ L 3.93-5.22 HEMOGLOBIN (BEAKER) (test lqrd=781) 10.7 GM/DL 11.2-15.7 HEMATOCRIT (BEAKER) (test jevh=819) 32.1 % 34.1-44.9 MEAN CORPUSCULAR VOLUME (BEAKER) (test wcqr=630) 90.4 fL 79.4-94.8 MEAN CORPUSCULAR HEMOGLOBIN (BEAKER) (test hpob=106) 30.1 pg 25.6-32.2 MEAN CORPUSCULAR HEMOGLOBIN CONC (BEAKER) (test equw=584) 33.3 GM/DL 32.2-35.5 RED CELL DISTRIBUTION WIDTH (BEAKER) (test rees=873) 12.3 % 11.7-14.4 PLATELET COUNT (BEAKER) (test yrlj=096) 247 K/CU MM 150-450 MEAN PLATELET VOLUME (BEAKER) (test cwfl=906) 9.6 fL 9.4-12.3 NUCLEATED RED BLOOD CELLS (BEAKER) (test brcj=805) 0 /100 WBC 0-0 NEUTROPHILS RELATIVE PERCENT (BEAKER) (test txpi=806) 49 % LYMPHOCYTES RELATIVE PERCENT (BEAKER) (test dayw=115) 39 % MONOCYTES RELATIVE PERCENT (BEAKER) (test hriq=813) 9 % EOSINOPHILS RELATIVE PERCENT (BEAKER) (test bhby=454) 2 % BASOPHILS RELATIVE PERCENT (BEAKER) (test kbuo=769) 0 % NEUTROPHILS ABSOLUTE COUNT (BEAKER) (test ntbz=541) 1.63 K/ L 1.56-6.13 LYMPHOCYTES ABSOLUTE COUNT (BEAKER) (test xxwl=684) 1.28 K/ L 1.18-3.74 MONOCYTES ABSOLUTE COUNT (BEAKER) (test yith=274) 0.30 K/ L 0.24-0.36 EOSINOPHILS ABSOLUTE COUNT (BEAKER) (test fgpy=640) 0.07 K/ L 0.04-0.36 BASOPHILS ABSOLUTE COUNT (BEAKER) (test oisi=524) 0.01 K/ L 0.01-0.08 IMMATURE GRANULOCYTES-RELATIVE PERCENT (BEAKER) (test owyc=7840) 0 % 0-1 AFB CULTURE + [id number] 14:43:00* Test Item Value Reference Range Comments CULTURE (BEAKER) (test qfis=5312) No acid-fast bacilli isolated in 42 days AFB SMEAR (BEAKER) (test tvvw=483) No acid fast bacilli seen FUNGUS CULTURE + [id number] 07:20:00* Test Item Value Reference Range Comments CULTURE (BEAKER) (test imko=1432) No fungus isolated in 28 days FUNGUS SMEAR (BEAKER) (test obai=7046) No fungi seen TISSUE [id number] 11:30:00Surgical Pathology Report Case: [id number] Authorizing Provider: Joao Khalil MD Collected: 09/21/2017 4772 Ordering Location: [address] Received: 09/21/2017 1359 Service Pathologist: Marlene Lynch MD Specimen: Kidney, Left KIDNEY, LEFT, NEEDLE BIOPSIES- DIFFUSE, PREDOMINANTLY SEGMENTAL, PROLIFERATIVE GLOMERULONEPHRITIS, ACTIVE AND CHRONIC, CONSISTENT WITH ISN/RPS DIFFUSE LUPUS NEPHRITIS, 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 Kidney Int. 2017 Nov;92(5):7542-7017.The results were discussed with Dr. Shepherd on 09/22/201788305, 16252 x3, 55648, 91313 x6, 01106PDV with nephrotic syndrome Left enterprise renal biopsySpecimen is received in three containers all labeled with the patient's information and "left enterprise renal biopsy".Received in formalin are two light-castrejon cores of soft tissue measuring 0.5 cm and 1.6 cm in length, entirely submitted in cassette A1.Received in saline is a 1.5 cm in length light-castrejon core of soft tissue, which is frozen and entirely submitted for immunofluorescent staining.Received in glutaraldehyde is a 0.3 cm in length, light-castrejon core of soft tissue, which is entirely submitted for EM studies. DB/ew LIGHT MICROSCOPY:The renal biopsy includes two core of renal parenchymal tissue comprised of cortex (40%) and medulla (60%).Glomeruli: Approximately 5 glomeruli are examined. No glomerulus is globally sclerotic. All glomeruli are enlarged, with segmental lobular accentuation due to mesangial and endocapillary hypercel lularity along with mild neutrophilic exudation. Occasional glomerulus shows jf bal hypercellularity. Focal wire loop lesions are noted. Silver stain shows glom erular basement membranes with segmental double contours and mesangial interposi tioning. There are segmental holes in the basement membranes with rare spikes. O ne glomerulus shows a fibrocellular crescent and there is another glomerulus wit h a partial fibrocellular crescent. Focal and segmental adhesions are seen. No h yaline thrombi or fibrinoid necrosis is seen. Tubules and interstitium: No signi ficant interstitial fibrosis or tubular atrophy is seen. No significant intersti tial inflammation is noted. Vessels: Interlobular arteries show mild intimal fib rosis. There is mild arteriolar hyalinosis. No thrombi or necrotizing vasculitis is seen. IMMUNOFLUORESCENCE:Direct Immunofluorescence performed on paraffin em bedded tissueImmunofluorescence findings: IgA: Diffuse, segmental to global gran ular, peripheral capillary loop and mesangial staining 1+IgG: Diffuse, segmental to global granular, peripheral capillary loop and mesangial staining 3+IgM: Dif fuse segmental to global, granular, peripheral capillary loop and mesangial stai christiane 2+C3: Diffuse and global, granular, peripheral capillary loop and mesangial staining, 3+C1q: Diffuse and global, granular, peripheral capillary loop and m esangial, 3+[place]: Diffuse and global, granular, peripheral capillary loop and mesangial staining 3+Lambda: Diffuse and global, granular, peripheral capillary loop and mesangial staining 3+Diagnostic Electron Microscopy:Thick section histo logy: Toluidine blue-stained sections reveal 4 glomeruli, all of which are exami odessa ultrastructurally.Ultrastructure: Examination of the glomerular ultrastructu re reveals that there is diffuse segmental to global endocapillary proliferation . The glomerular basement membrane shows segmental mesangial interposition, and presence of double contours. The mesangial matrix is mildly expanded. Numerous s ubendothelial, subepithelial and mesangial/paramesangial electron-dense, immune complex-type deposits are present. Podocyte foot processes are diffusely efface d.OVA AND PARASITE [id number] 07:51:00* Test Item Value Reference Range Comments DIRECT SMEAR - O\\T\\P (BEAKER) (test bjrr=129) No ova or parasites seen No ova or parasites seen CONCENTRATE SMEAR - O\\T\\P (BEAKER) (test zhfb=049) No ova or parasites seen No ova or parasites seen TRICHROME SMEAR - O\\T\\P (BEAKER) (test qxde=434) No ova or parasites seen No ova or parasites seen BASIC METABOLIC [id number] 05:12:00* Test Item Value Reference Range Comments SODIUM (BEAKER) (test gsda=550) 136 meq/L 136-145 POTASSIUM (BEAKER) (test yysz=144) 3.9 meq/L 3.5-5.1 CHLORIDE (BEAKER) (test muqn=553) 109 meq/L 98-107 CO2 (BEAKER) (test odbv=413) 21 meq/L 22-29 BLOOD UREA NITROGEN (BEAKER) (test rcuo=871) 16 mg/dL 7-21 CREATININE (BEAKER) (test hsri=505) 0.65 mg/dL 0.57-1.25 GLUCOSE RANDOM (BEAKER) (test qnes=869) 75 mg/dL 70-105 CALCIUM (BEAKER) (test nqcj=706) 7.5 mg/dL 8.4-10.2 EGFR (BEAKER) (test yeig=7646) mL/min/1.73 sq m INSUFFICIENT CLINICAL DATA TO CALCULATE ESTIMATED GFR. CBC W/PLT COUNT & AUTO [id number] 04:57:00* Test Item Value Reference Range Comments WHITE BLOOD CELL COUNT (BEAKER) (test xjrb=744) 5.1 K/ L 3.5-10.5 RED BLOOD CELL COUNT (BEAKER) (test gwiz=411) 2.86 M/ L 3.93-5.22 HEMOGLOBIN (BEAKER) (test jyzl=250) 8.3 GM/DL 11.2-15.7 HEMATOCRIT (BEAKER) (test yhgs=043) 25.5 % 34.1-44.9 MEAN CORPUSCULAR VOLUME (BEAKER) (test ekjw=168) 89.2 fL 79.4-94.8 MEAN CORPUSCULAR HEMOGLOBIN (BEAKER) (test cbvj=088) 29.0 pg 25.6-32.2 MEAN CORPUSCULAR HEMOGLOBIN CONC (BEAKER) (test umva=582) 32.5 GM/DL 32.2-35.5 RED CELL DISTRIBUTION WIDTH (BEAKER) (test yqry=721) 12.6 % 11.7-14.4 PLATELET COUNT (BEAKER) (test rwjb=800) 269 K/CU MM 150-450 MEAN PLATELET VOLUME (BEAKER) (test txlq=662) 10.2 fL 9.4-12.3 NUCLEATED RED BLOOD CELLS (BEAKER) (test olii=380) 0 /100 WBC 0-0 NEUTROPHILS RELATIVE PERCENT (BEAKER) (test xkmi=381) 78 % LYMPHOCYTES RELATIVE PERCENT (BEAKER) (test zwbr=272) 16 % MONOCYTES RELATIVE PERCENT (BEAKER) (test xljx=652) 4 % EOSINOPHILS RELATIVE PERCENT (BEAKER) (test fhjn=357) 0 % BASOPHILS RELATIVE PERCENT (BEAKER) (test ajdc=823) 0 % NEUTROPHILS ABSOLUTE COUNT (BEAKER) (test jiij=177) 3.98 K/ L 1.56-6.13 LYMPHOCYTES ABSOLUTE COUNT (BEAKER) (test hdsr=422) 0.84 K/ L 1.18-3.74 MONOCYTES ABSOLUTE COUNT (BEAKER) (test ilvq=176) 0.20 K/ L 0.24-0.36 EOSINOPHILS ABSOLUTE COUNT (BEAKER) (test xppx=558) 0.01 K/ L 0.04-0.36 BASOPHILS ABSOLUTE COUNT (BEAKER) (test bcou=878) 0.00 K/ L 0.01-0.08 IMMATURE GRANULOCYTES-RELATIVE PERCENT (BEAKER) (test xyul=1243) 2 % 0-1 MISCELLANEOUS LAB [id number] 07:35:00* Test Item Value Reference Range Comments SCAN RESULT (test [id number]) BASIC METABOLIC [id number] 06:54:00* Test Item Value Reference Range Comments SODIUM (BEAKER) (test ujvw=857) 137 meq/L 136-145 POTASSIUM (BEAKER) (test yyeg=022) 3.9 meq/L 3.5-5.1 CHLORIDE (BEAKER) (test dutf=172) 111 meq/L 98-107 CO2 (BEAKER) (test sgdi=157) 19 meq/L 22-29 BLOOD UREA NITROGEN (BEAKER) (test aihy=053) 15 mg/dL 7-21 CREATININE (BEAKER) (test gbtj=241) 0.61 mg/dL 0.57-1.25 GLUCOSE RANDOM (BEAKER) (test elas=532) 68 mg/dL 70-105 CALCIUM (BEAKER) (test ligs=983) 7.5 mg/dL 8.4-10.2 EGFR (BEAKER) (test qgjr=9080) mL/min/1.73 sq m INSUFFICIENT CLINICAL DATA TO CALCULATE ESTIMATED GFR. CBC W/PLT COUNT & AUTO [id number] 06:43:00* Test Item Value Reference Range Comments WHITE BLOOD CELL COUNT (BEAKER) (test nmga=178) 5.5 K/ L 3.5-10.5 RED BLOOD CELL COUNT (BEAKER) (test kxus=050) 2.75 M/ L 3.93-5.22 HEMOGLOBIN (BEAKER) (test iuqp=371) 7.8 GM/DL 11.2-15.7 HEMATOCRIT (BEAKER) (test kkec=029) 24.7 % 34.1-44.9 MEAN CORPUSCULAR VOLUME (BEAKER) (test rcfi=832) 89.8 fL 79.4-94.8 MEAN CORPUSCULAR HEMOGLOBIN (BEAKER) (test lkuc=225) 28.4 pg 25.6-32.2 MEAN CORPUSCULAR HEMOGLOBIN CONC (BEAKER) (test lzoh=689) 31.6 GM/DL 32.2-35.5 RED CELL DISTRIBUTION WIDTH (BEAKER) (test eytr=183) 12.6 % 11.7-14.4 PLATELET COUNT (BEAKER) (test vfnd=466) 260 K/CU MM 150-450 MEAN PLATELET VOLUME (BEAKER) (test wyuh=952) 11.0 fL 9.4-12.3 NUCLEATED RED BLOOD CELLS (BEAKER) (test mlsv=982) 0 /100 WBC 0-0 NEUTROPHILS RELATIVE PERCENT (BEAKER) (test yjhb=782) 74 % LYMPHOCYTES RELATIVE PERCENT (BEAKER) (test emlt=535) 20 % MONOCYTES RELATIVE PERCENT (BEAKER) (test xewy=970) 4 % EOSINOPHILS RELATIVE PERCENT (BEAKER) (test wnqh=264) 1 % BASOPHILS RELATIVE PERCENT (BEAKER) (test ytuj=620) 0 % NEUTROPHILS ABSOLUTE COUNT (BEAKER) (test myrl=119) 4.06 K/ L 1.56-6.13 LYMPHOCYTES ABSOLUTE COUNT (BEAKER) (test qayq=297) 1.10 K/ L 1.18-3.74 MONOCYTES ABSOLUTE COUNT (BEAKER) (test fwko=122) 0.21 K/ L 0.24-0.36 EOSINOPHILS ABSOLUTE COUNT (BEAKER) (test kcza=616) 0.03 K/ L 0.04-0.36 BASOPHILS ABSOLUTE COUNT (BEAKER) (test yqds=278) 0.00 K/ L 0.01-0.08 IMMATURE GRANULOCYTES-RELATIVE PERCENT (BEAKER) (test wzgn=5609) 1 % 0-1 RESPIRATORY PANEL [id number] 13:48:00* Test Item Value Reference Range Comments HUMAN METAPNEUMOVIRUS (BEAKER) (test jjli=1655) Not detected Not detected, Inconclusive RHINOVIRUS (BEAKER) (test xoyv=0514) Not detected Not detected, Inconclusive INFLUENZA A (BEAKER) (test owdf=0441) Not detected Not detected, Inconclusive INFLUENZA A SUBTYPE H1 (BEAKER) (test mjzl=4695) Not detected Not detected, Inconclusive INFLUENZA A SUBTYPE H3 (BEAKER) (test ffsi=9348) Not detected Not detected, Inconclusive INFLUENZA A SUBTYPE H1-2009 (BEAKER) (test rxrf=4456) Not detected Not detected, Inconclusive INFLUENZA B (BEAKER) (test qzsv=3525) Not detected Not detected, Inconclusive RESPIRATORY SYNCYTIAL VIRUS (BEAKER) (test jxsx=4815) Not detected Not detected, Inconclusive PARAINFLUENZA VIRUS 1 (BEAKER) (test otvk=0622) Not detected Not detected, Inconclusive PARAINFLUENZA VIRUS 2 (BEAKER) (test jwng=8892) Not detected Not detected, Inconclusive PARAINFLUENZA VIRUS 3 (BEAKER) (test alaf=6876) Not detected Not detected, Inconclusive PARAINFLUENZA VIRUS 4 (BEAKER) (test rpkn=5531) Not detected Not detected, Inconclusive ADENOVIRUS (BEAKER) (test wyqa=3932) Not detected Not detected, Inconclusive CORONAVIRUS 229E (BEAKER) (test zxck=3799) Not detected Not detected, Inconclusive CORONAVIRUS HKU1 (BEAKER) (test jpjt=3272) Not detected Not detected, Inconclusive CORONAVIRUS NL63 (BEAKER) (test nlcs=7335) Not detected Not detected, Inconclusive CORONAVIRUS OC43 (BEAKER) (test mdzh=3246) Not detected Not detected, Inconclusive BORDETELLA PERTUSSIS (BEAKER) (test mclk=8861) Not detected Not detected, Inconclusive CHLAMYDOPHILA PNEUMONIAE (BEAKER) (test rbqx=9924) Not detected Not detected, Inconclusive MYCOPLASMA PNEUMONIAE (BEAKER) (test lbjv=1649) Not detected Not detected, Inconclusive CT, CHEST, WITHOUT [id number] 17:10:00FINAL REPORT Chest CT without intravenous contrast INDICATION: [...] appear unremarkable. The osseous structures demonstrate mild degener ative change. IMPRESSION:1. Small bilateral pleural effusions with atelectasis. Small pericardial effusion.2. Mild cardiomegaly.3. 4 mm nodule in the right uppe r lobe. 2017 Fleischner Society Recommendations for Single Solid Lung Nodule Fol low-Up based on size (average of long- and short-axis diameters) <6 mm Low-Risk Patient: No routine follow-up <6 mm High-Risk Patient: Optional CT at 12 months 6-8 mm Low-Risk Patient: CT at 6-[address] at 18-24 months6-8 mm High-Risk Patient: CT at 6-[address] at 18-24 months >8 mm Low-Risk Patient: Consider CT, PET/CT or tissue sampling at 3 months>8 mm High-Risk Patient: Same as for low-risk patient Signed: Kieran Gonzáleseport Verified Date/Time: 09/24/2017 17:10:38 Reading Location: [facility] B1 C013X Ortho Consult Reading Room W/PLT COUNT & AUTO [id number] 02:50:00* Test Item Value Reference Range Comments WHITE BLOOD CELL COUNT (BEAKER) (test fnzn=877) 6.8 K/ L 3.5-10.5 RED BLOOD CELL COUNT (BEAKER) (test dsfq=639) 3.29 M/ L 3.93-5.22 HEMOGLOBIN (BEAKER) (test rxrj=300) 9.4 GM/DL 11.2-15.7 HEMATOCRIT (BEAKER) (test otvm=772) 28.9 % 34.1-44.9 MEAN CORPUSCULAR VOLUME (BEAKER) (test lcbi=683) 87.8 fL 79.4-94.8 MEAN CORPUSCULAR HEMOGLOBIN (BEAKER) (test qyfz=701) 28.6 pg 25.6-32.2 MEAN CORPUSCULAR HEMOGLOBIN CONC (BEAKER) (test wsfw=360) 32.5 GM/DL 32.2-35.5 RED CELL DISTRIBUTION WIDTH (BEAKER) (test ljng=039) 12.6 % 11.7-14.4 PLATELET COUNT (BEAKER) (test haab=458) 313 K/CU MM 150-450 MEAN PLATELET VOLUME (BEAKER) (test bumt=273) 9.9 fL 9.4-12.3 NUCLEATED RED BLOOD CELLS (BEAKER) (test wwtr=697) 0 /100 WBC 0-0 NEUTROPHILS RELATIVE PERCENT (BEAKER) (test nucj=564) 84 % LYMPHOCYTES RELATIVE PERCENT (BEAKER) (test fgfr=149) 12 % MONOCYTES RELATIVE PERCENT (BEAKER) (test ljdb=510) 3 % EOSINOPHILS RELATIVE PERCENT (BEAKER) (test lnar=179) 0 % BASOPHILS RELATIVE PERCENT (BEAKER) (test rvik=370) 0 % NEUTROPHILS ABSOLUTE COUNT (BEAKER) (test xgfq=327) 5.68 K/ L 1.56-6.13 LYMPHOCYTES ABSOLUTE COUNT (BEAKER) (test nzud=188) 0.80 K/ L 1.18-3.74 MONOCYTES ABSOLUTE COUNT (BEAKER) (test vgjv=203) 0.23 K/ L 0.24-0.36 EOSINOPHILS ABSOLUTE COUNT (BEAKER) (test oflh=407) 0.02 K/ L 0.04-0.36 BASOPHILS ABSOLUTE COUNT (BEAKER) (test gboy=537) 0.01 K/ L 0.01-0.08 IMMATURE GRANULOCYTES-RELATIVE PERCENT (BEAKER) (test kead=7314) 0 % 0-1 BASIC METABOLIC [id number] 02:46:00* Test Item Value Reference Range Comments SODIUM (BEAKER) (test wicd=006) 136 meq/L 136-145 POTASSIUM (BEAKER) (test wams=153) 3.6 meq/L 3.5-5.1 CHLORIDE (BEAKER) (test srfv=031) 104 meq/L 98-107 CO2 (BEAKER) (test lbot=420) 23 meq/L 22-29 BLOOD UREA NITROGEN (BEAKER) (test iegc=521) 19 mg/dL 7-21 CREATININE (BEAKER) (test ufcy=638) 0.73 mg/dL 0.57-1.25 GLUCOSE RANDOM (BEAKER) (test uroq=930) 88 mg/dL 70-105 CALCIUM (BEAKER) (test obgu=864) 7.6 mg/dL 8.4-10.2 EGFR (BEAKER) (test nuiv=8441) mL/min/1.73 sq m INSUFFICIENT CLINICAL DATA TO CALCULATE ESTIMATED GFR. CREATINE KINASE (CK), TOTAL AND [id number] 02:45:00* Test Item Value Reference Range Comments CREATINE KINASE TOTAL (BEAKER) (test clix=796) 31 U/L 29-200 CREATINE KINASE-MB (BEAKER) (test zbxn=855) 0.2 ng/mL 0.0-6.6 CREATINE KINASE-MB INDEX (BEAKER) (test ksxp=128) 0.6 % CK-MB Reference Range:<6.7 Normal6.7-10.0 Borderline>10.0 Abnormal TROPONIN [id number] 02:45:00* Test Item Value Reference Range Comments TROPONIN I (BEAKER) (test nhky=640) 0.01 ng/mL 0.00-0.03 Troponin I (TnI) levels must be interpreted in the context of the presenting sym ptoms and the clinical findings. Elevated TnI levels indicate myocardial damage, but are not specific for ischemic heart disease. Elevated TnI levels are seen in patients with other cardiac conditions (including myocarditis and congestive h eart failure), and slight TnI elevations occur in patients with other conditions , including sepsis, renal failure, acidosis, acute neurological disease, and per sistent tachyarrhythmia.RAD, CHEST, 1 VIEW, NON [id number] 01:15:00Reason for exam:->chest painShould this be performed at the bedside?->YesFINAL REPORT RAD, CHEST, 1 VIEW, NON DEPT INDICATION: chest pain COMPARISON: Chest x-ray 3 days ago TECHNIQUE: Single frontal view of the chest. IMPRESSION:Low lung volumes.Stable cardiac silhouette.Patchy bibasilar opacities which could reflect atelectasis and/or a pneumonia.Slight decrease in the size of the right-sided effusion.No acute osseous abnormality. Signed: Yesenia Monroy MDReport Verified Date/Time: 09/24/2017 01:15:35 Reading Location: [place] [address] C013X Ortho Consult Reading Room MENTATION [id number] 12:27:00* Test Item Value Reference Range Comments SEDIMENTATION RATE, ERYTHROCYTE (BEAKER) (test yjow=442) > mm/HR 0-20 SEDIMENTATION [id number] 09:46:00* Test Item Value Reference Range Comments SEDIMENTATION RATE, ERYTHROCYTE (BEAKER) (test iekf=379) > mm/HR 0-20 BASIC METABOLIC [id number] 07:57:00* Test Item Value Reference Range Comments SODIUM (BEAKER) (test ewoz=555) 136 meq/L 136-145 POTASSIUM (BEAKER) (test fhie=494) 4.0 meq/L 3.5-5.1 CHLORIDE (BEAKER) (test evai=995) 106 meq/L 98-107 CO2 (BEAKER) (test hyyl=080) 24 meq/L 22-29 BLOOD UREA NITROGEN (BEAKER) (test mvti=147) 19 mg/dL 7-21 CREATININE (BEAKER) (test blnp=785) 0.64 mg/dL 0.57-1.25 GLUCOSE RANDOM (BEAKER) (test vkjd=902) 83 mg/dL 70-105 CALCIUM (BEAKER) (test fcys=301) 7.4 mg/dL 8.4-10.2 EGFR (BEAKER) (test lkop=2643) mL/min/1.73 sq m INSUFFICIENT CLINICAL DATA TO CALCULATE ESTIMATED GFR. CBC W/PLT COUNT & AUTO [id number] 07:46:00* Test Item Value Reference Range Comments WHITE BLOOD CELL COUNT (BEAKER) (test fvvb=393) 5.4 K/ L 3.5-10.5 RED BLOOD CELL COUNT (BEAKER) (test exfv=905) 3.05 M/ L 3.93-5.22 HEMOGLOBIN (BEAKER) (test njln=942) 8.6 GM/DL 11.2-15.7 HEMATOCRIT (BEAKER) (test lflc=304) 26.6 % 34.1-44.9 MEAN CORPUSCULAR VOLUME (BEAKER) (test qpxg=662) 87.2 fL 79.4-94.8 MEAN CORPUSCULAR HEMOGLOBIN (BEAKER) (test kiuj=284) 28.2 pg 25.6-32.2 MEAN CORPUSCULAR HEMOGLOBIN CONC (BEAKER) (test dwor=044) 32.3 GM/DL 32.2-35.5 RED CELL DISTRIBUTION WIDTH (BEAKER) (test mgsw=713) 12.6 % 11.7-14.4 PLATELET COUNT (BEAKER) (test wwbn=710) 253 K/CU MM 150-450 MEAN PLATELET VOLUME (BEAKER) (test bqnh=330) 10.6 fL 9.4-12.3 NUCLEATED RED BLOOD CELLS (BEAKER) (test sezg=406) 0 /100 WBC 0-0 NEUTROPHILS RELATIVE PERCENT (BEAKER) (test fvmh=315) 87 % LYMPHOCYTES RELATIVE PERCENT (BEAKER) (test vebs=451) 9 % MONOCYTES RELATIVE PERCENT (BEAKER) (test fmaf=244) 4 % EOSINOPHILS RELATIVE PERCENT (BEAKER) (test fmhg=583) 0 % BASOPHILS RELATIVE PERCENT (BEAKER) (test sxxd=202) 0 % NEUTROPHILS ABSOLUTE COUNT (BEAKER) (test mxyx=621) 4.69 K/ L 1.56-6.13 LYMPHOCYTES ABSOLUTE COUNT (BEAKER) (test wwud=943) 0.47 K/ L 1.18-3.74 MONOCYTES ABSOLUTE COUNT (BEAKER) (test qsrk=069) 0.22 K/ L 0.24-0.36 EOSINOPHILS ABSOLUTE COUNT (BEAKER) (test gpjh=038) 0.00 K/ L 0.04-0.36 BASOPHILS ABSOLUTE COUNT (BEAKER) (test bnbd=074) 0.00 K/ L 0.01-0.08 IMMATURE GRANULOCYTES-RELATIVE PERCENT (BEAKER) (test rvte=6397) 1 % 0-1 CSF CULTURE + GRAM [id number] 15:03:00* Test Item Value Reference Range Comments CULTURE (BEAKER) (test jrqw=5399) No growth GRAM STAIN RESULT (BEAKER) (test cojq=0798) No WBCs GRAM STAIN RESULT (BEAKER) (test ywvu=98402) No organisms seen PUL PERF IMAGING, PARTIC, [id number] 12:18:00FINAL REPORT PROCEDURE: V/Q LUNG SCAN CPT CODE: 61180 INDICATION: Dyspnea, pleural effusion PROTOCOL: 10.6 mCi of Xe-133 gas was administered by inhalation. Rebreathing/washout images were obtained in the anterior and the posterior projections. 4.04 mCi of Tc-99m MAA was then injected intravenously, and static perfusion images were obtained in multiple projections. FINDINGS: Ventilation: Initial tracer distribution is sli ghtly decreased in the bases with prominence of the cardiac silhouette. Washout proceeds normally. Perfusion: Tracer distribution is mildly irregular wi th matching findings. IMPRESSION: 1. Low probability of acute pulmonary embol ization.2. Findings are consistent with parenchymal lung disease and history of pleural effusion.. Signed: Ian Gonzalez MDReport Verified Date/Time: 09/22/19 12:18:49 Reading Location: [address] Reading Room [facility] signed by: IAN GONZALEZ M.D. on 09/22/2017 12:18 PM BASIC METABOLIC [id number] 07:11:00* Test Item Value Reference Range Comments SODIUM (BEAKER) (test bvkz=409) 136 meq/L 136-145 POTASSIUM (BEAKER) (test shyy=571) 4.3 meq/L 3.5-5.1 Specimen slightly hemolyzed CHLORIDE (BEAKER) (test dqqp=525) 106 meq/L 98-107 CO2 (BEAKER) (test jzpj=811) 21 meq/L 22-29 BLOOD UREA NITROGEN (BEAKER) (test ezyr=821) 18 mg/dL 7-21 CREATININE (BEAKER) (test eiyq=906) 0.76 mg/dL 0.57-1.25 Specimen slightly hemolyzed GLUCOSE RANDOM (BEAKER) (test ajoc=227) 74 mg/dL 70-105 CALCIUM (BEAKER) (test myge=898) 7.1 mg/dL 8.4-10.2 EGFR (BEAKER) (test qknj=3911) mL/min/1.73 sq m INSUFFICIENT CLINICAL DATA TO CALCULATE ESTIMATED GFR. CBC W/PLT COUNT & AUTO [id number] 07:06:00* Test Item Value Reference Range Comments WHITE BLOOD CELL COUNT (BEAKER) (test eqlo=593) 5.4 K/ L 3.5-10.5 RED BLOOD CELL COUNT (BEAKER) (test hjte=996) 3.32 M/ L 3.93-5.22 HEMOGLOBIN (BEAKER) (test veeo=811) 9.5 GM/DL 11.2-15.7 HEMATOCRIT (BEAKER) (test ucmn=216) 29.4 % 34.1-44.9 MEAN CORPUSCULAR VOLUME (BEAKER) (test trzc=264) 88.6 fL 79.4-94.8 MEAN CORPUSCULAR HEMOGLOBIN (BEAKER) (test jlhz=572) 28.6 pg 25.6-32.2 MEAN CORPUSCULAR HEMOGLOBIN CONC (BEAKER) (test jkzb=854) 32.3 GM/DL 32.2-35.5 RED CELL DISTRIBUTION WIDTH (BEAKER) (test dmie=033) 12.8 % 11.7-14.4 PLATELET COUNT (BEAKER) (test uccb=348) 272 K/CU MM 150-450 MEAN PLATELET VOLUME (BEAKER) (test tghh=220) 10.3 fL 9.4-12.3 NUCLEATED RED BLOOD CELLS (BEAKER) (test twip=006) 0 /100 WBC 0-0 NEUTROPHILS RELATIVE PERCENT (BEAKER) (test ycwp=899) 82 % LYMPHOCYTES RELATIVE PERCENT (BEAKER) (test kdye=586) 10 % MONOCYTES RELATIVE PERCENT (BEAKER) (test zhul=210) 7 % EOSINOPHILS RELATIVE PERCENT (BEAKER) (test iuec=779) 1 % BASOPHILS RELATIVE PERCENT (BEAKER) (test hpaw=406) 0 % NEUTROPHILS ABSOLUTE COUNT (BEAKER) (test yesm=393) 4.38 K/ L 1.56-6.13 LYMPHOCYTES ABSOLUTE COUNT (BEAKER) (test dvfl=826) 0.53 K/ L 1.18-3.74 MONOCYTES ABSOLUTE COUNT (BEAKER) (test dtbq=795) 0.36 K/ L 0.24-0.36 EOSINOPHILS ABSOLUTE COUNT (BEAKER) (test fyyc=724) 0.03 K/ L 0.04-0.36 BASOPHILS ABSOLUTE COUNT (BEAKER) (test rwah=879) 0.01 K/ L 0.01-0.08 IMMATURE GRANULOCYTES-RELATIVE PERCENT (BEAKER) (test jtxk=6020) 1 % 0-1 C-REACTIVE [id number] 07:05:00* Test Item Value Reference Range Comments C-REACTIVE PROTEIN (BEAKER) (test jlvl=148) 7.80 mg/dL 0.00-0.50 COMPLEMENT COMPONENT [id number] 06:50:00* Test Item Value Reference Range Comments C4 COMPLEMENT (BEAKER) (test xklc=963) 9 mg/dL 15-57 COMPLEMENT COMPONENT [id number] 06:50:00* Test Item Value Reference Range Comments C3 COMPLEMENT (BEAKER) (test egvg=022) 62 mg/dL 82-193 CBC W/PLT COUNT & AUTO [id number] 06:07:00* Test Item Value Reference Range Comments WHITE BLOOD CELL COUNT (BEAKER) (test jwru=866) 5.1 K/ L 3.5-10.5 RED BLOOD CELL COUNT (BEAKER) (test kkeo=034) 1.70 M/ L 3.93-5.22 HEMOGLOBIN (BEAKER) (test ozvx=181) 5.0 GM/DL 11.2-15.7 HEMATOCRIT (BEAKER) (test iffy=256) 15.8 % 34.1-44.9 MEAN CORPUSCULAR VOLUME (BEAKER) (test sdzq=456) 92.9 fL 79.4-94.8 MEAN CORPUSCULAR HEMOGLOBIN (BEAKER) (test clmb=378) 29.4 pg 25.6-32.2 MEAN CORPUSCULAR HEMOGLOBIN CONC (BEAKER) (test rrlg=615) 31.6 GM/DL 32.2-35.5 RED CELL DISTRIBUTION WIDTH (BEAKER) (test dcad=882) 12.8 % 11.7-14.4 PLATELET COUNT (BEAKER) (test azgl=097) 116 K/CU MM 150-450 MEAN PLATELET VOLUME (BEAKER) (test acgc=535) 11.2 fL 9.4-12.3 NUCLEATED RED BLOOD CELLS (BEAKER) (test ydyl=961) 0 /100 WBC 0-0 NEUTROPHILS RELATIVE PERCENT (BEAKER) (test gglk=452) 79 % LYMPHOCYTES RELATIVE PERCENT (BEAKER) (test irvy=791) 15 % MONOCYTES RELATIVE PERCENT (BEAKER) (test bydn=674) 5 % EOSINOPHILS RELATIVE PERCENT (BEAKER) (test hdie=448) 1 % BASOPHILS RELATIVE PERCENT (BEAKER) (test meob=595) 0 % NEUTROPHILS ABSOLUTE COUNT (BEAKER) (test nqqm=920) 4.01 K/ L 1.56-6.13 LYMPHOCYTES ABSOLUTE COUNT (BEAKER) (test ywcn=707) 0.74 K/ L 1.18-3.74 MONOCYTES ABSOLUTE COUNT (BEAKER) (test uide=982) 0.26 K/ L 0.24-0.36 EOSINOPHILS ABSOLUTE COUNT (BEAKER) (test xzox=792) 0.03 K/ L 0.04-0.36 BASOPHILS ABSOLUTE COUNT (BEAKER) (test segt=427) 0.01 K/ L 0.01-0.08 IMMATURE GRANULOCYTES-RELATIVE PERCENT (BEAKER) (test veyb=9719) 1 % 0-1 U/S, BIOPSY, RENAL (KIDNEY)2017-09-21 15:02:00Reason for exam:->sle with nephrotic syndromeShould this be performed at the bedside?->NoFINAL REPORT Ultrasound guided enterprise kidney random biopsy: Pertinent clinical information: Lupus with nephrotic syndromeModality: Sono graphyConscious Sedation : Versed 1 mg and fentanyl 50 mcg intravenouslyDuring t he procedure with conscious sedation, the patient was monitored continuously wit h pulse oximetry and electrocardiography by the attending radiologist and nursin g personnel.Physician Patient face to face intraservice time: 30 minutesAnesthes ia: Two percent Lidocaine injected subcutaneously at the insertion site.Approac h: Left flank Pathology specimen sent: Two core 18-gauge specimen Technique: A fter informed written consent was obtained, the patient was prepped and draped i n the usual sterile manner. Access was obtained using sonographic guidance. A 18-gauge core biopsy needle was advanced into the left kidney. Two passes were made through the left kidney. The patient tolerated the procedure well. The pa tient was monitored by a nurse during the procedure. Oxygen saturation, an ECG and blood pressure monitoring was performed throughout the procedure. Impressio n:Successful, uncomplicated ultrasound-guided enterprise kidney biopsy. Signed: Joanne Goyal Verified Date/Time: 09/21/2017 15:02:26 Reading Location: [facility] P006J Ultrasound Reading Room EN TITER AND [id number] 10:56:00* Test Item Value Reference Range Comments AUSTEN TITER (BEAKER) (test inni=8288) >=:2560 AUSTEN PATTERN (BEAKER) (test ljsw=4133) Homogeneous ANTI-NUCLEAR ANTIBODY (AUSTEN)2017-09-21 10:55:00* Test Item Value Reference Range Comments ANTI-NUCLEAR ANTIBODY (AUSTEN) (BEAKER) (test kucd=555) Positive Negative PROTHROMBIN TIME/[id number] 09:46:00* Test Item Value Reference Range Comments PROTIME (BEAKER) (test hwfh=496) 13.1 seconds 11.7-14.7 INR (BEAKER) (test arcg=218) 1.0 <=5.9 RECOMMENDED COUMADIN/WARFARIN INR THERAPY RANGESSTANDARD DOSE: 2.0 - 3.0 Inclu zana: PROPHYLAXIS for venous thrombosis, systemic embolization; TREATMENT for paulina ous thrombosis and/or pulmonary embolus.HIGH RISK: Target INR is 2.5-3.5 for pat ients with mechanical heart valves.[id number] 03:32:00* Test Item Value Reference Range Comments D-DIMER QUANTITATIVE (BEAKER) (test axfg=658) 3.82 MG/L FEU <0.50 Intended Use: The D-Dimer Assay can be used to aid in the diagnosis of Deep Vein Thrombosis (DVT) and Pulmonary Embolism Disease (PED).In patients with low pre- test probability, various studies concerning STA Liatest D-dimer test have repor pedrito that with a cutoff value of 0.50 MG/L FEU, the Negative Predictive Value ([employer] V) regarding the exclusion of thrombosis is within 95-100% range.B-TYPE NATRIURETIC FACTOR (BNP)2017-09-21 02:33:00* Test Item Value Reference Range Comments B-TYPE NATRIURETIC PEPTIDE (BEAKER) (test mrvl=356) 160 pg/mL 0-100 CBC W/PLT COUNT & AUTO [id number] 02:21:00* Test Item Value Reference Range Comments WHITE BLOOD CELL COUNT (BEAKER) (test ysxv=024) 5.1 K/ L 3.5-10.5 RED BLOOD CELL COUNT (BEAKER) (test waol=641) 3.20 M/ L 3.93-5.22 HEMOGLOBIN (BEAKER) (test oxkk=913) 9.3 GM/DL 11.2-15.7 HEMATOCRIT (BEAKER) (test ftcz=446) 28.8 % 34.1-44.9 MEAN CORPUSCULAR VOLUME (BEAKER) (test cvpf=514) 90.0 fL 79.4-94.8 MEAN CORPUSCULAR HEMOGLOBIN (BEAKER) (test yury=358) 29.1 pg 25.6-32.2 MEAN CORPUSCULAR HEMOGLOBIN CONC (BEAKER) (test jbim=605) 32.3 GM/DL 32.2-35.5 RED CELL DISTRIBUTION WIDTH (BEAKER) (test xioj=296) 12.9 % 11.7-14.4 PLATELET COUNT (BEAKER) (test wtkb=750) 265 K/CU MM 150-450 MEAN PLATELET VOLUME (BEAKER) (test arac=721) 10.1 fL 9.4-12.3 NUCLEATED RED BLOOD CELLS (BEAKER) (test zpeq=964) 0 /100 WBC 0-0 NEUTROPHILS RELATIVE PERCENT (BEAKER) (test arwn=313) 84 % LYMPHOCYTES RELATIVE PERCENT (BEAKER) (test sncj=626) 10 % MONOCYTES RELATIVE PERCENT (BEAKER) (test qqaz=736) 5 % EOSINOPHILS RELATIVE PERCENT (BEAKER) (test ycwx=241) 1 % BASOPHILS RELATIVE PERCENT (BEAKER) (test mbrq=804) 0 % NEUTROPHILS ABSOLUTE COUNT (BEAKER) (test tqbz=742) 4.27 K/ L 1.56-6.13 LYMPHOCYTES ABSOLUTE COUNT (BEAKER) (test rmhg=638) 0.50 K/ L 1.18-3.74 MONOCYTES ABSOLUTE COUNT (BEAKER) (test rrxl=612) 0.24 K/ L 0.24-0.36 EOSINOPHILS ABSOLUTE COUNT (BEAKER) (test sany=160) 0.03 K/ L 0.04-0.36 BASOPHILS ABSOLUTE COUNT (BEAKER) (test pelh=950) 0.01 K/ L 0.01-0.08 IMMATURE GRANULOCYTES-RELATIVE PERCENT (BEAKER) (test uapa=4296) 0 % 0-1 BLOOD GAS, [id number] 01:00:00* Test Item Value Reference Range Comments PH ARTERIAL (BEAKER) (test umvm=994) 7.51 7.35-7.45 PCO2 ARTERIAL (BEAKER) (test cdhn=112) 37 mmHg 35-45 PO2 ARTERIAL (BEAKER) (test vstp=254) 70 mmHg 80-90 O2 SATURATION ARTERIAL (BEAKER) (test yfpe=897) 95.1 % 96.0-97.0 HCO3 ARTERIAL (BEAKER) (test zkcn=974) 29 mmol/L 21-29 BASE EXCESS ARTERIAL (BEAKER) (test ngis=714) 6.0 mmol/L -2.0-3.0 PATIENT TEMPERATURE (BEAKER) (test ovoq=2819) 37.7 C FIO2 (BEAKER) (test fnae=2590) 21.0 % RAD, CHEST, 1 VIEW, NON [id number] 00:34:00Reason for exam:->SOBShould this be performed at the bedside?->YesFINAL REPORT EXAMINATION: AP PORTABLE CHEST RADIOGRAPH CLINICAL INDICATION: Shortness of breath IMPRESSION: Compared with 09/19/2017 Nonspecific opacities are again noted in both lungs with a predominantly basilar distribution. Although a component of atelectasis is suspected, mild superimposed edema or an underlying pneumonia should also be considered. The heart is enlarged but stable. Mediastinal contours are relatively unchanged allowing for differences in technique and positioning. Small bilateral pleural effusions are again noted, grossly stable. No evidence of a pneumothorax. Signed: Chan Morales MDReport Verified Date/Time: 09/21/2017 00:34:07 Reading Location: [address] Reading Room -100 2017-09-20 22:56:00* Test Item Value Reference Range Comments COL/EPI CLOSURE TIME (BEAKER) (test vrfa=0076) 120 Seconds 78-191 COL/ADP CLOSURE TIME (BEAKER) (test fzcs=2986) Seconds 43-122 Test not indicated PLATELET COUNT AGG (BEAKER) (test qxwq=0058) 282 K/CU MM 150-450 PROTEIN, RANDOM [id number] 14:44:00* Test Item Value Reference Range Comments PROTEIN, URINE (BEAKER) (test hokt=4982) 394 mg/dL 0-14 CREATININE, RANDOM [id number] 14:19:00* Test Item Value Reference Range Comments CREATININE URINE (BEAKER) (test szrl=807) 52.8 mg/dL Reference Range: No NormalsSODIUM, RANDOM [id number] 14:19:00* Test Item Value Reference Range Comments SODIUM URINE (BEAKER) (test wvxk=345) 86 meq/L Reference Range: No NormalsCBC W/PLT COUNT & AUTO [id number] 11:18:00* Test Item Value Reference Range Comments WHITE BLOOD CELL COUNT (BEAKER) (test toit=207) 2.9 K/ L 3.5-10.5 RED BLOOD CELL COUNT (BEAKER) (test dgxq=438) 2.98 M/ L 3.93-5.22 HEMOGLOBIN (BEAKER) (test lvwx=623) 8.6 GM/DL 11.2-15.7 HEMATOCRIT (BEAKER) (test zswq=843) 26.1 % 34.1-44.9 MEAN CORPUSCULAR VOLUME (BEAKER) (test awzn=450) 87.6 fL 79.4-94.8 MEAN CORPUSCULAR HEMOGLOBIN (BEAKER) (test ojaf=043) 28.9 pg 25.6-32.2 MEAN CORPUSCULAR HEMOGLOBIN CONC (BEAKER) (test zkak=263) 33.0 GM/DL 32.2-35.5 RED CELL DISTRIBUTION WIDTH (BEAKER) (test dete=854) 13.0 % 11.7-14.4 PLATELET COUNT (BEAKER) (test fzys=248) 265 K/CU MM 150-450 MEAN PLATELET VOLUME (BEAKER) (test hruv=832) 10.0 fL 9.4-12.3 NUCLEATED RED BLOOD CELLS (BEAKER) (test sqhr=717) 0 /100 WBC 0-0 IMMATURE GRANULOCYTES-RELATIVE PERCENT (BEAKER) (test uizb=2289) 1 % 0-1 NEUTROPHILS RELATIVE PERCENT (BEAKER) (test npnf=037) 71 % This is an appended report. These results have been appended to a previously final verified report. LYMPHOCYTES RELATIVE PERCENT (BEAKER) (test kzra=831) 20 % This is an appended report. These results have been appended to a previously final verified report. MONOCYTES RELATIVE PERCENT (BEAKER) (test bqtd=348) 6 % This is an appended report. These results have been appended to a previously final verified report. EOSINOPHILS RELATIVE PERCENT (BEAKER) (test gzhc=648) 1 % This is an appended report. These results have been appended to a previously final verified report. BASOPHILS RELATIVE PERCENT (BEAKER) (test gctd=341) 0 % This is an appended report. These results have been appended to a previously final verified report. NEUTROPHILS ABSOLUTE COUNT (BEAKER) (test bfqe=851) 2.08 K/ L 1.56-6.13 This is an appended report. These results have been appended to a previously final verified report. LYMPHOCYTES ABSOLUTE COUNT (BEAKER) (test txrr=775) 0.60 K/ L 1.18-3.74 This is an appended report. These results have been appended to a previously final verified report. MONOCYTES ABSOLUTE COUNT (BEAKER) (test xbuy=859) 0.18 K/ L 0.24-0.36 This is an appended report. These results have been appended to a previously final verified report. EOSINOPHILS ABSOLUTE COUNT (BEAKER) (test jatb=384) 0.03 K/ L 0.04-0.36 This is an appended report. These results have been appended to a previously final verified report. BASOPHILS ABSOLUTE COUNT (BEAKER) (test whml=808) 0.01 K/ L 0.01-0.08 This is an appended report. These results have been appended to a previously final verified report. STOOL CULTURE + SHIGA [id number] 11:08:00* Test Item Value Reference Range Comments CULTURE (BEAKER) (test twxx=2400) No Salmonella, Shigella or Campylobacter isolated ANTITHROMBIN [id number] 10:58:00* Test Item Value Reference Range Comments ANTITHROMBIN III ACTIVITY (BEAKER) (test xely=034) 89.0 % 80.0-120.0 ANTI-NUCLEAR ANTIBODY (AUSTEN)2017-09-20 10:49:00* Test Item Value Reference Range Comments ANTI-NUCLEAR ANTIBODY (AUSTEN) (BEAKER) (test lqqj=822) Positive Negative AUSTEN TITER AND [id number] 10:49:00* Test Item Value Reference Range Comments AUSTEN TITER (BEAKER) (test rwme=7935) >=:2560 AUSTEN PATTERN (BEAKER) (test vnbi=5787) Homogeneous T4, [id number] 08:41:00* Test Item Value Reference Range Comments FREE T4 (BEAKER) (test cvxd=656) 0.73 ng/dL 0.70-1.48 HEPATIC FUNCTION [id number] 08:01:00* Test Item Value Reference Range Comments TOTAL PROTEIN (BEAKER) (test wdis=409) 4.9 gm/dL 6.0-8.3 ALBUMIN (BEAKER) (test kcyn=2957) 1.8 g/dL 3.5-5.0 BILIRUBIN TOTAL (BEAKER) (test bqvv=550) < mg/dL 0.2-1.2 BILIRUBIN DIRECT (BEAKER) (test lwki=164) 0.1 mg/dL 0.1-0.5 ALKALINE PHOSPHATASE (BEAKER) (test dltx=701) 184 U/L 40-150 AST (SGOT) (BEAKER) (test nine=445) 20 U/L 5-34 ALT (SGPT) (BEAKER) (test ikge=881) 39 U/L 6-55 COMPREHENSIVE METABOLIC [id number] 08:01:00* Test Item Value Reference Range Comments TOTAL PROTEIN (BEAKER) (test nhyt=825) 4.9 gm/dL 6.0-8.3 ALBUMIN (BEAKER) (test optl=1551) 1.8 g/dL 3.5-5.0 ALKALINE PHOSPHATASE (BEAKER) (test addq=278) 184 U/L 40-150 BILIRUBIN TOTAL (BEAKER) (test prcx=694) < mg/dL 0.2-1.2 SODIUM (BEAKER) (test cuuw=784) 135 meq/L 136-145 POTASSIUM (BEAKER) (test djuv=587) 3.4 meq/L 3.5-5.1 CHLORIDE (BEAKER) (test rwpl=142) 108 meq/L 98-107 CO2 (BEAKER) (test tctn=129) 23 meq/L 22-29 BLOOD UREA NITROGEN (BEAKER) (test gzom=038) 10 mg/dL 7-21 CREATININE (BEAKER) (test kkbj=736) 0.61 mg/dL 0.57-1.25 GLUCOSE RANDOM (BEAKER) (test cisp=826) 82 mg/dL 70-105 CALCIUM (BEAKER) (test ivjx=327) 7.0 mg/dL 8.4-10.2 AST (SGOT) (BEAKER) (test iqjp=689) 20 U/L 5-34 ALT (SGPT) (BEAKER) (test hspv=834) 39 U/L 6-55 EGFR (BEAKER) (test junf=0011) mL/min/1.73 sq m INSUFFICIENT CLINICAL DATA TO CALCULATE ESTIMATED GFR. URIC [id number] 07:57:00* Test Item Value Reference Range Comments URIC ACID (BEAKER) (test nwco=382) 5.0 mg/dL 2.6-7.2 [id number] 07:57:00* Test Item Value Reference Range Comments MAGNESIUM (BEAKER) (test zpgc=440) 1.5 mg/dL 1.6-2.6 [id number] 07:57:00* Test Item Value Reference Range Comments PHOSPHORUS (BEAKER) (test zyud=275) 3.1 mg/dL 2.3-4.7 TSH/FREE T4 IF [id number] 07:47:00* Test Item Value Reference Range Comments THYROID STIMULATING HORMONE (BEAKER) (test nnhr=020) 15.91 uIU/mL 0.35-4.94 CRYPTOCOCCAL ANTIGEN, [id number] 01:12:00* Test Item Value Reference Range Comments CRYPTOCOCCAL ANTIGEN, CSF (BEAKER) (test wgpr=803) Negative Negative, Interference VDRL, [id number] 01:09:00* Test Item Value Reference Range Comments SYPHILIS VDRL QUANTITATION CSF (BEAKER) (test ufzu=943) Nonreactive Nonreactive EOSINOPHIL SMEAR, [id number] 19:24:00* Test Item Value Reference Range Comments EOSINOPHIL SMEAR, URINE (BEAKER) (test lpvl=4578) No EOS seen No EOS seen GLUCOSE, [id number] 17:05:00* Test Item Value Reference Range Comments GLUCOSE CSF (BEAKER) (test fqpu=789) 41 mg/dL 40-70 PROTEIN, [id number] 17:05:00* Test Item Value Reference Range Comments PROTEIN CSF (BEAKER) (test outp=540) 16 mg/dL 15-45 CSF CELL COUNT [id number] 17:04:00* Test Item Value Reference Range Comments APPEARANCE CSF (BEAKER) (test hook=550) Clear Clear COLOR CSF (BEAKER) (test mzlx=422) Colorless Colorless RBC CSF (BEAKER) (test ulep=408) 7 /cu mm 0-5 WBC CSF (BEAKER) (test lepu=0837) 0 /cu mm <=5 RBCS FRESH (BEAKER) (test galg=8170) 100% Fresh NUMBER OF CELLS DIFF'D (BEAKER) (test yinw=1907) 0 TUBE NUMBER CSF (BEAKER) (test kysb=2872) edta NE INK [id number] 16:53:00* Test Item Value Reference Range Comments NE INK (BEAKER) (test gkfb=8323) No encapsulated yeast seen No encapsulated yeast seen SHIGA TOXIN [id number] 14:45:00* Test Item Value Reference Range Comments SHIGA TOXIN 1 (BEAKER) (test ohpy=1082) Not detected Not detected SHIGA TOXIN 2 (BEAKER) (test lszh=3877) Not detected Not detected PROTEIN, RANDOM [id number] 14:11:00* Test Item Value Reference Range Comments PROTEIN, URINE (BEAKER) (test lbgg=9367) 346 mg/dL 0-14 CREATININE, RANDOM [id number] 13:35:00* Test Item Value Reference Range Comments CREATININE URINE (BEAKER) (test vbxg=787) 47.9 mg/dL Reference Range: No NormalsSODIUM, RANDOM [id number] 13:35:00* Test Item Value Reference Range Comments SODIUM URINE (BEAKER) (test dzka=184) 89 meq/L Reference Range: No NormalsSTOOL PATH [id number] 13:26:00* Test Item Value Reference Range Comments PATHOGEN EXAM CHARGED (BEAKER) (test mqzt=1377) Done OSMOLALITY, [id number] 13:19:00* Test Item Value Reference Range Comments OSMOLALITY URINE (BEAKER) (test zjqa=639) 414 mOsm/kg 40-1400 CLOSTRIDIUM DIFFICILE TOXIN [id number] 13:12:00* Test Item Value Reference Range Comments CLOSTRIDIUM DIFFICILE TOXIN, PCR (BEAKER) (test edtl=6652) Not Detected Not Detected This qualitative real-time polymerase chain reaction assay detects the tcdB gene , encoded on the C.difficile pathogenicity locus (PaLoc). The product of tcdB, toxin B, is a cytotoxin essential for causing C.difficile-associated disease (CD AD) and is found in virtually all toxigenic C.difficile.This assay is performed for patients suspected of having either community-acquired or nosocomial CDAD. Accordingly, only symptomatic patients should be tested and formed stools will b e rejected unless ileus is present (i.e., specified when ordering). Patients ma y be colonized with toxigenic C.difficile strains not causing active disease; th erefore, clinical correlation is needed when deciding how to manage patients wit h a positive test result.The assay has not been validated as a test of cure as a mplifiable nucleic acid may persist after effective treatment; therefore, follow -up testing of a positive result is not recommended.URINALYSIS W/ MICROSCOPIC 2017-09-19 13:08:00* Test Item Value Reference Range Comments COLOR (BEAKER) (test fftn=704) Yellow CLARITY (BEAKER) (test oslg=519) Hazy SPECIFIC GRAVITY UA (BEAKER) (test baln=165) 1.013 1.001-1.035 PH UA (BEAKER) (test lvdv=407) 6.0 5.0-8.0 PROTEIN UA (BEAKER) (test ieed=132) 200 mg/dL Negative GLUCOSE UA (BEAKER) (test kfwv=452) Negative Negative KETONES UA (BEAKER) (test aknd=654) Negative Negative BILIRUBIN UA (BEAKER) (test vnnf=986) Negative Negative BLOOD UA (BEAKER) (test yiun=321) Moderate Negative NITRITE UA (BEAKER) (test rgwk=340) Negative Negative LEUKOCYTE ESTERASE UA (BEAKER) (test odqj=574) Negative Negative UROBILINOGEN UA (BEAKER) (test oyse=742) 0.2 mg/dL 0.2-1.0 RBC UA (BEAKER) (test zldf=574) 15 /HPF WBC UA (BEAKER) (test tbfn=915) 10 /HPF MUCUS (BEAKER) (test loct=5391) Rare SQUAMOUS EPITHELIAL (BEAKER) (test tqcf=214) 2 /HPF HYALINE CASTS (BEAKER) (test jgfy=817) 12 /LPF SOURCE(BEAKER) (test sqbx=3466) RAD, CHEST, 1 VIEW, NON [id number] 10:46:00Reason for exam:->shortness of breathShould this be performed at the bedside?->YesFINAL REPORT Chest one view compared to September 03 Discussion: Interstitial opacities of both lower lung regions are noted, perhaps minimally worse. There is interval appearance of a 1 cm focal density of the right mid to low chest projecting over the right-sided anterolateral third rib. Heart size is in the upper limits of normal. No gross effusion or pneumothorax. IMPRESSION: Pulmonary changes may be minimally worse. Correlate clinically for pneumonia versus cardiac failure. Signed: Ted Kowalski Verified Date/Time: 09/19/2017 10:46:02 Reading Location: [facility] [address] Radiology Reading Room Elec tronically signed by: TED KOWALSKI M.D. on 09/19/2017 10:46 AM CREATININE, RANDOM [id number] 08:44:00* Test Item Value Reference Range Comments CREATININE URINE (BEAKER) (test kmqb=320) 86.9 mg/dL Reference Range: No [id number] 08:22:00* Test Item Value Reference Range Comments FERRITIN (BEAKER) (test ogjx=967) 238 ng/mL 5-275 MR, BRAIN, [id number] 08:06:00FINAL REPORT MRI Brain with and without contrast INDICATION: Headache, intracranial hypertension. TECHNIQUE: Multiplanar, multisequence MR imaging of the brain was performed, utilizing the following imaging sequences: Axial T1, T2, FLAIR, DWI, GRE; sagittal T1; postcontrast axial, sagittal, and coronal T1. COMPARISON: CT head 09/17/2017 FINDINGS:There is nonspecific mild T2/FLAIR hyperintensity in the [...] lying, but not peglike. The sinuses and ma stoid air cells are well aerated. The sella is unremarkable. The calvarium is in tact. IMPRESSION: 1. Nonspecific signal changes in the middle cerebellar peduncl es, cerebellar cortices, and possibly insular cortices. Differential considerati ons are discussed above, including infectious, autoimmune, and inflammatory proc esses and atypical PRES. Advise neurologic correlation and consider CSF analysis . 2. No evidence of acute infarct, hemorrhage, or hydrocephalus. Signed: Chin Carrasco MDReport Verified Date/Time: 09/19/2017 08:06:32 Reading Location : [address] Neuro Reading Room , MRA, BRAIN, WITHOUT [id number] 08:06:00Please obtain MRV study for concern for IIH.FINAL REPORT MRA head and MRV head without contrast INDICATION: Idiopathic intracranial hypertension., Headache TECHNIQUE: 3-D iorf-ub-egyytz MRA and 2-D cpng-nh-fliibd MRV of the head was obtained with generation of maximal intensity projection reconstructions. FINDINGS: MRA head:There is no major branch occlusion or focal stenosis in the proximal [place] Jacques vessels. There are conical protuberances at the origins of the posterior communicating arteries measuring up to 2 mm on the right suggestive of infundibula. MRV head:There is no MRV evidence of acute dural venous sinus thrombosis or sinus stenosis. A prominent left transverse sinus arachnoid granulation is present. There is mild developmental asymmetry of the transverse and sigmoid sinus systems. IMPRESSION: 1. No [place] of Jacques major branch occlusion or focal stenosis. 2. Posterior communicating artery infundibular origins. 3. No MRV evidence of dural venous s inus thrombosis or stenosis. Signed: Chin Jacinto MDReport Verified Date /Time: 09/19/2017 08:06:47 Reading Location: [address] Neuro Reading Room -1 ANTIGEN WITH HIV-1/2 [id number] 07:39:00* Test Item Value Reference Range Comments HIV-1 ANTIGEN WITH HIV 1\\T\\2 ANTIBODY (2) (BEAKER) (test btpx=7922) Nonreactive Nonreactive BASIC METABOLIC [id number] 07:31:00* Test Item Value Reference Range Comments SODIUM (BEAKER) (test fzjc=869) 137 meq/L 136-145 POTASSIUM (BEAKER) (test ziis=234) 3.6 meq/L 3.5-5.1 CHLORIDE (BEAKER) (test slqn=804) 114 meq/L 98-107 CO2 (BEAKER) (test lmzm=523) 18 meq/L 22-29 BLOOD UREA NITROGEN (BEAKER) (test fczr=222) 13 mg/dL 7-21 CREATININE (BEAKER) (test lukd=433) 0.64 mg/dL 0.57-1.25 GLUCOSE RANDOM (BEAKER) (test cpwd=539) 80 mg/dL 70-105 CALCIUM (BEAKER) (test rxqr=648) 7.6 mg/dL 8.4-10.2 EGFR (BEAKER) (test czpe=5019) mL/min/1.73 sq m INSUFFICIENT CLINICAL DATA TO CALCULATE ESTIMATED GFR. C-REACTIVE [id number] 07:26:00* Test Item Value Reference Range Comments C-REACTIVE PROTEIN (BEAKER) (test berm=132) 1.82 mg/dL 0.00-0.50 [id number] 07:24:00* Test Item Value Reference Range Comments ALPHA-1 ANTITRYPSIN (BEAKER) (test ulyn=550) 182.60 mg/dL 90.00-200.00 [id number] 07:22:00* Test Item Value Reference Range Comments PHOSPHORUS (BEAKER) (test faup=587) 3.6 mg/dL 2.3-4.7 [id number] 07:22:00* Test Item Value Reference Range Comments MAGNESIUM (BEAKER) (test qsjd=529) 1.1 mg/dL 1.6-2.6 LIPID [id number] 07:22:00* Test Item Value Reference Range Comments TRIGLYCERIDES (BEAKER) (test sqys=804) 185 mg/dL CHOLESTEROL (BEAKER) (test fpps=468) 166 mg/dL HDL CHOLESTEROL (BEAKER) (test cypi=977) 41 mg/dL LDL CHOLESTEROL CALCULATED (BEAKER) (test uayz=402) 88 mg/dL Triglyceride Reference Range: Low Risk <150 Borderline 150-199 High Risk 200-499 Very High Risk >=500Cholesterol Reference Range: Low Risk <200 Borderline 200-239 High Risk >240HDL Cholesterol Reference Range: Low Risk >=60 High Risk <40LDL Cholesterol Reference Range: Optimal <100 Near Optimal 100-129 Borderline 130-159 High 160-189 Very High >=190 HEPATIC FUNCTION [id number] 07:22:00* Test Item Value Reference Range Comments TOTAL PROTEIN (BEAKER) (test qwhg=458) 5.2 gm/dL 6.0-8.3 ALBUMIN (BEAKER) (test oaer=5268) 2.0 g/dL 3.5-5.0 BILIRUBIN TOTAL (BEAKER) (test ammz=487) < mg/dL 0.2-1.2 BILIRUBIN DIRECT (BEAKER) (test hgta=995) 0.1 mg/dL 0.1-0.5 ALKALINE PHOSPHATASE (BEAKER) (test xpnu=045) 217 U/L 40-150 AST (SGOT) (BEAKER) (test ofiy=429) 30 U/L 5-34 ALT (SGPT) (BEAKER) (test ecgm=313) 62 U/L 6-55 COMPLEMENT COMPONENT [id number] 07:20:00* Test Item Value Reference Range Comments C4 COMPLEMENT (BEAKER) (test hnxl=465) 7 mg/dL 15-57 COMPLEMENT COMPONENT [id number] 07:20:00* Test Item Value Reference Range Comments C3 COMPLEMENT (BEAKER) (test qjaq=691) 65 mg/dL 82-193 IRON, TIBC, % SAT. (WITHOUT FERRITIN)2017-09-19 07:20:00* Test Item Value Reference Range Comments IRON (BEAKER) (test rfrt=772) 33 ug/dL 40-160 TOTAL IRON BINDING CAPACITY (BEAKER) (test dsoa=244) 160 ug/dL 250-450 IRON % SATURATION (2) (BEAKER) (test yanc=1661) 21 % 20-55 CBC W/PLT COUNT & AUTO [id number] 07:03:00* Test Item Value Reference Range Comments WHITE BLOOD CELL COUNT (BEAKER) (test uocv=766) 3.4 K/ L 3.5-10.5 RED BLOOD CELL COUNT (BEAKER) (test hxll=015) 2.72 M/ L 3.93-5.22 HEMOGLOBIN (BEAKER) (test qlbf=339) 7.8 GM/DL 11.2-15.7 HEMATOCRIT (BEAKER) (test nyhj=487) 23.6 % 34.1-44.9 MEAN CORPUSCULAR VOLUME (BEAKER) (test lwls=167) 86.8 fL 79.4-94.8 MEAN CORPUSCULAR HEMOGLOBIN (BEAKER) (test jteh=706) 28.7 pg 25.6-32.2 MEAN CORPUSCULAR HEMOGLOBIN CONC (BEAKER) (test skvu=079) 33.1 GM/DL 32.2-35.5 RED CELL DISTRIBUTION WIDTH (BEAKER) (test iyab=130) 13.2 % 11.7-14.4 PLATELET COUNT (BEAKER) (test esan=516) 289 K/CU MM 150-450 MEAN PLATELET VOLUME (BEAKER) (test zndf=273) 9.9 fL 9.4-12.3 NUCLEATED RED BLOOD CELLS (BEAKER) (test ljid=697) 0 /100 WBC 0-0 NEUTROPHILS RELATIVE PERCENT (BEAKER) (test bkeq=639) 78 % LYMPHOCYTES RELATIVE PERCENT (BEAKER) (test nkdn=604) 14 % MONOCYTES RELATIVE PERCENT (BEAKER) (test zgea=740) 6 % EOSINOPHILS RELATIVE PERCENT (BEAKER) (test gwfu=257) 1 % BASOPHILS RELATIVE PERCENT (BEAKER) (test mler=356) 0 % NEUTROPHILS ABSOLUTE COUNT (BEAKER) (test wmrj=247) 2.66 K/ L 1.56-6.13 LYMPHOCYTES ABSOLUTE COUNT (BEAKER) (test znbr=167) 0.48 K/ L 1.18-3.74 MONOCYTES ABSOLUTE COUNT (BEAKER) (test gxaa=852) 0.20 K/ L 0.24-0.36 EOSINOPHILS ABSOLUTE COUNT (BEAKER) (test gcqa=986) 0.02 K/ L 0.04-0.36 BASOPHILS ABSOLUTE COUNT (BEAKER) (test nvms=978) 0.00 K/ L 0.01-0.08 IMMATURE GRANULOCYTES-RELATIVE PERCENT (BEAKER) (test dqdc=6254) 1 % 0-1 FECAL [id number] 23:43:00* Test Item Value Reference Range Comments FECAL LEUKOCYTES (BEAKER) (test gcmo=165) No fecal leukocytes seen No fecal leukocytes seen PROTEIN, RANDOM [id number] 23:31:00* Test Item Value Reference Range Comments PROTEIN, URINE (BEAKER) (test duja=6226) 532 mg/dL 0-14 BASIC METABOLIC [id number] 05:52:00* Test Item Value Reference Range Comments SODIUM (BEAKER) (test ffoz=626) 136 meq/L 136-145 POTASSIUM (BEAKER) (test qtqh=674) 4.9 meq/L 3.5-5.1 CHLORIDE (BEAKER) (test hbyy=987) 119 meq/L 98-107 CO2 (BEAKER) (test cocs=018) 13 meq/L 22-29 BLOOD UREA NITROGEN (BEAKER) (test wufi=578) 16 mg/dL 7-21 CREATININE (BEAKER) (test qvfb=550) 0.64 mg/dL 0.57-1.25 GLUCOSE RANDOM (BEAKER) (test xmif=497) 93 mg/dL 70-105 CALCIUM (BEAKER) (test nuzk=533) 7.8 mg/dL 8.4-10.2 EGFR (BEAKER) (test fpkm=6390) mL/min/1.73 sq m INSUFFICIENT CLINICAL DATA TO CALCULATE ESTIMATED GFR. HEPATIC FUNCTION [id number] 05:52:00* Test Item Value Reference Range Comments TOTAL PROTEIN (BEAKER) (test ggai=537) 5.2 gm/dL 6.0-8.3 ALBUMIN (BEAKER) (test bvfc=2178) 1.9 g/dL 3.5-5.0 BILIRUBIN TOTAL (BEAKER) (test rtpn=929) < mg/dL 0.2-1.2 BILIRUBIN DIRECT (BEAKER) (test nqsh=092) 0.1 mg/dL 0.1-0.5 ALKALINE PHOSPHATASE (BEAKER) (test qgzx=742) 234 U/L 40-150 AST (SGOT) (BEAKER) (test fynd=421) 40 U/L 5-34 ALT (SGPT) (BEAKER) (test cnjx=580) 80 U/L 6-55 HEPATITIS PANEL, [id number] 05:51:00* Test Item Value Reference Range Comments HEPATITIS A IGM ANTIBODY (BEAKER) (test pxxt=713) Nonreactive Nonreactive HEPATITIS B CORE IGM ANTIBODY (BEAKER) (test dscs=587) Nonreactive Nonreactive HEPATITIS C ANTIBODY (BEAKER) (test ebuh=386) Nonreactive Nonreactive HEPATITIS B SURFACE ANTIGEN (2) (BEAKER) (test ympt=2546) Nonreactive Nonreactive [id number] 05:50:00* Test Item Value Reference Range Comments PHOSPHORUS (BEAKER) (test slhz=827) 3.2 mg/dL 2.3-4.7 [id number] 05:50:00* Test Item Value Reference Range Comments MAGNESIUM (BEAKER) (test mzkr=651) 1.5 mg/dL 1.6-2.6 CBC W/PLT COUNT & AUTO [id number] 05:30:00* Test Item Value Reference Range Comments WHITE BLOOD CELL COUNT (BEAKER) (test urcd=160) 4.4 K/ L 3.5-10.5 RED BLOOD CELL COUNT (BEAKER) (test onoo=885) 3.07 M/ L 3.93-5.22 HEMOGLOBIN (BEAKER) (test vfla=510) 8.7 GM/DL 11.2-15.7 HEMATOCRIT (BEAKER) (test dboa=989) 26.7 % 34.1-44.9 MEAN CORPUSCULAR VOLUME (BEAKER) (test qmce=199) 87.0 fL 79.4-94.8 MEAN CORPUSCULAR HEMOGLOBIN (BEAKER) (test haeo=480) 28.3 pg 25.6-32.2 MEAN CORPUSCULAR HEMOGLOBIN CONC (BEAKER) (test faiw=222) 32.6 GM/DL 32.2-35.5 RED CELL DISTRIBUTION WIDTH (BEAKER) (test alvc=435) 13.4 % 11.7-14.4 PLATELET COUNT (BEAKER) (test fgyi=809) 304 K/CU MM 150-450 MEAN PLATELET VOLUME (BEAKER) (test boyp=072) 10.0 fL 9.4-12.3 NUCLEATED RED BLOOD CELLS (BEAKER) (test qfom=356) 0 /100 WBC 0-0 NEUTROPHILS RELATIVE PERCENT (BEAKER) (test hvbk=095) 84 % LYMPHOCYTES RELATIVE PERCENT (BEAKER) (test puce=315) 11 % MONOCYTES RELATIVE PERCENT (BEAKER) (test wbln=392) 4 % EOSINOPHILS RELATIVE PERCENT (BEAKER) (test osoa=801) 0 % BASOPHILS RELATIVE PERCENT (BEAKER) (test xnnb=837) 0 % NEUTROPHILS ABSOLUTE COUNT (BEAKER) (test wkbb=859) 3.70 K/ L 1.56-6.13 LYMPHOCYTES ABSOLUTE COUNT (BEAKER) (test qggc=502) 0.50 K/ L 1.18-3.74 MONOCYTES ABSOLUTE COUNT (BEAKER) (test uedq=038) 0.19 K/ L 0.24-0.36 EOSINOPHILS ABSOLUTE COUNT (BEAKER) (test tdit=265) 0.00 K/ L 0.04-0.36 BASOPHILS ABSOLUTE COUNT (BEAKER) (test iolu=040) 0.00 K/ L 0.01-0.08 IMMATURE GRANULOCYTES-RELATIVE PERCENT (BEAKER) (test pahv=7815) 1 % 0-1 BASIC METABOLIC [id number] 17:22:00* Test Item Value Reference Range Comments SODIUM (BEAKER) (test omfm=693) 139 meq/L 136-145 POTASSIUM (BEAKER) (test anxc=236) 4.6 meq/L 3.5-5.1 CHLORIDE (BEAKER) (test eyxw=931) 120 meq/L 98-107 CO2 (BEAKER) (test mnah=371) 15 meq/L 22-29 BLOOD UREA NITROGEN (BEAKER) (test omfd=519) 18 mg/dL 7-21 CREATININE (BEAKER) (test ucxp=588) 0.80 mg/dL 0.57-1.25 GLUCOSE RANDOM (BEAKER) (test dugn=604) 112 mg/dL 70-105 CALCIUM (BEAKER) (test lpgx=702) 7.0 mg/dL 8.4-10.2 EGFR (BEAKER) (test hcan=2753) mL/min/1.73 sq m INSUFFICIENT CLINICAL DATA TO CALCULATE ESTIMATED GFR. URINALYSIS W/ [id number] 14:05:00* Test Item Value Reference Range Comments COLOR (BEAKER) (test sxgb=811) Yellow CLARITY (BEAKER) (test eudm=407) Clear SPECIFIC GRAVITY UA (BEAKER) (test tfcb=921) 1.009 1.001-1.035 PH UA (BEAKER) (test isor=757) 6.0 5.0-8.0 PROTEIN UA (BEAKER) (test jvot=426) 200 mg/dL Negative GLUCOSE UA (BEAKER) (test qziv=140) Negative Negative KETONES UA (BEAKER) (test tatw=879) Negative Negative BILIRUBIN UA (BEAKER) (test uxze=488) Negative Negative BLOOD UA (BEAKER) (test mzgf=975) Small Negative NITRITE UA (BEAKER) (test graw=156) Negative Negative LEUKOCYTE ESTERASE UA (BEAKER) (test mltu=813) Trace Negative UROBILINOGEN UA (BEAKER) (test lcwc=655) 0.2 mg/dL 0.2-1.0 RBC UA (BEAKER) (test onle=638) 8 /HPF WBC UA (BEAKER) (test vezh=341) 8 /HPF MUCUS (BEAKER) (test nmzf=3673) Rare SQUAMOUS EPITHELIAL (BEAKER) (test mtnm=640) 1 /HPF HYALINE CASTS (BEAKER) (test uupl=438) 2 /LPF SOURCE(BEAKER) (test znwc=8794) CT, [id number] 13:57:00Reason for exam:->LOSS OF CONSCIOUSNESSReason for exam:->HEADACHEReason for exam:->EMESISReason for exam:->DIARRHEAWhat is the patient's sedation requirement?->No SedationIs the patient ?->Unknown FINAL REPORT CT OF THE ABDOMEN AND PELVIS CLINICAL HISTOR Y: Abdominal pain TECHNIQUE: CT of the abdomen and pelvis is performed with int ravenous contrast administration. This exam was performed according [facility] which includes automated exposure control, adj ustment of the mA and/or kV according to patient size and/or use of iterative re construction technique. COMPARISON FILM: None DISCUSSION: LOWER THORAX: Trace b ilateral pleural effusions and mild interstitial edema. Trace pericardial fluid. HEPATOBILIARY: Diffuse hepatic steatosis. Main portal vein is patent. The bilia ry ductal dilation.PANCREAS: No pancreatic ductal dilation. No pancreatic lesion . SPLEEN: The spleen is borderline enlarged measuring 12.6 cm in craniocaudal di mension. ADRENALS: No nodule. KIDNEYS/URETERS: No hydronephrosis or hydroureter. No solid lesion.PELVIC ORGANS/BLADDER: There is a 1.5 cm peripherally enhancing structure within the right adnexum, possibly a hemorrhagic cyst or corpus luteal cyst. GI TRACT: No bowel wall thickening or distention. Normal appendix. GEETHA TONEUM/RETROPERITONEUM: Trace free pelvic fluid is likely physiologic.LYMPH NODE S: No upper abdominal, retroperitoneal, mesenteric, or pelvic lymphadenopathy.VE SSELS: Abdominal aorta normal in caliber. BONES AND SOFT TISSUES: No destructive osseous lesion. IMPRESSION: Diffuse hepatic steatosis and borderline splenomega ly. Trace free fluid in the pelvis is likely physiologic. A 1.5 cm peripherally enhancing structure in the right adnexum is likely a hemorrhagic cyst or corpus luteum. Otherwise, no acute CT findings in the abdomen or pelvis. Signed: Kaila Arizmendi MDReport Verified Date/Time: 09/17/2017 13:57:22 Reading Location: [place] [id number] Body Reading Room , BRAIN, WITHOUT [id number] 13:47:00Reason for exam:->headacheIs the patient ?->UnknownWhat is the patient's sedation requirement?->No SedationFINAL REPORT CT head without contrast 09/17/2017 1:44 PM CLINICAL HISTORY: Headache, acute, norm neuro examheadache TECHNIQUE: Axial noncontrast CT images through the head were obtained. This examination was performed according to our departmental dose optimization program, which includes automated exposure control, adjustment of the mA and/or kV according to patient size, and/or use of iterated reconstruction technique. COMPARISON: 09/03/2017 FINDINGS: There is no hemorrhage, extra-axial collection, mass, hydrocephalus, or midline shift. There is no CT evidence for cerebral infarction. The visualized paranasal sinuses and mastoid air cells are well aerated. The skull is intact. IMPRESSION: No intracranial hemorrhage or mass effect. If concern for acute pathology persists, further evaluation with MRI is recommended. Signed: Krishna Roqueeport Verified Date/Time: 09/17/2017 13:47:09 Reading Location: [address] Neuro Reading Room D GAS, [id number] 13:23:00* Test Item Value Reference Range Comments PH VENOUS (BEAKER) (test hiyg=608) 7.32 7.32-7.42 PCO2 VENOUS (BEAKER) (test fppn=792) 30 mmHg 41-51 PO2 VENOUS (BEAKER) (test njvz=431) 18 mmHg 25-40 O2 SATURATION VENOUS (BEAKER) (test qfgj=758) 25.3 % 40.0-70.0 HCO3 VENOUS (BEAKER) (test wmdo=257) 15 mmol/L 21-29 BASE EXCESS VENOUS (BEAKER) (test ikvw=135) -9.9 mmol/L -2.0-3.0 PATIENT TEMPERATURE (BEAKER) (test ylow=9229) 37.0 C FIO2 (BEAKER) (test kydw=3384) 21.0 % SCREEN, [id number] 13:13:00* Test Item Value Reference Range Comments TEST URINE (BEAKER) (test rfvx=207) Negative BASIC METABOLIC [id number] 11:58:00* Test Item Value Reference Range Comments SODIUM (BEAKER) (test uqtp=478) 138 meq/L 136-145 POTASSIUM (BEAKER) (test wdaf=813) 4.0 meq/L 3.5-5.1 CHLORIDE (BEAKER) (test hlaa=743) 116 meq/L 98-107 CO2 (BEAKER) (test gtfp=766) 15 meq/L 22-29 BLOOD UREA NITROGEN (BEAKER) (test qsxr=945) 21 mg/dL 7-21 CREATININE (BEAKER) (test ecyl=688) 0.82 mg/dL 0.57-1.25 GLUCOSE RANDOM (BEAKER) (test ihdg=250) 93 mg/dL 70-105 CALCIUM (BEAKER) (test utzs=401) 7.6 mg/dL 8.4-10.2 EGFR (BEAKER) (test lebw=2784) mL/min/1.73 sq m INSUFFICIENT CLINICAL DATA TO CALCULATE ESTIMATED GFR. HEPATIC FUNCTION [id number] 11:57:00* Test Item Value Reference Range Comments TOTAL PROTEIN (BEAKER) (test yidg=153) 6.3 gm/dL 6.0-8.3 ALBUMIN (BEAKER) (test ieuh=8508) 2.2 g/dL 3.5-5.0 BILIRUBIN TOTAL (BEAKER) (test flub=799) < mg/dL 0.2-1.2 BILIRUBIN DIRECT (BEAKER) (test pybe=970) 0.1 mg/dL 0.1-0.5 ALKALINE PHOSPHATASE (BEAKER) (test expr=526) 298 U/L 40-150 AST (SGOT) (BEAKER) (test ljgf=886) 72 U/L 5-34 ALT (SGPT) (BEAKER) (test drsh=277) 114 U/L 6-55 CBC W/PLT COUNT & AUTO [id number] 11:33:00* Test Item Value Reference Range Comments WHITE BLOOD CELL COUNT (BEAKER) (test hxuy=343) 5.2 K/ L 3.5-10.5 RED BLOOD CELL COUNT (BEAKER) (test cjti=683) 3.80 M/ L 3.93-5.22 HEMOGLOBIN (BEAKER) (test hflp=374) 10.8 GM/DL 11.2-15.7 HEMATOCRIT (BEAKER) (test bnlr=809) 33.5 % 34.1-44.9 MEAN CORPUSCULAR VOLUME (BEAKER) (test xcbm=532) 88.2 fL 79.4-94.8 MEAN CORPUSCULAR HEMOGLOBIN (BEAKER) (test dkjs=497) 28.4 pg 25.6-32.2 MEAN CORPUSCULAR HEMOGLOBIN CONC (BEAKER) (test lxwr=243) 32.2 GM/DL 32.2-35.5 RED CELL DISTRIBUTION WIDTH (BEAKER) (test gxvv=008) 13.4 % 11.7-14.4 PLATELET COUNT (BEAKER) (test slwu=538) 337 K/CU MM 150-450 MEAN PLATELET VOLUME (BEAKER) (test myne=660) 9.1 fL 9.4-12.3 NUCLEATED RED BLOOD CELLS (BEAKER) (test lsvh=801) 0 /100 WBC 0-0 NEUTROPHILS RELATIVE PERCENT (BEAKER) (test wffm=917) 83 % LYMPHOCYTES RELATIVE PERCENT (BEAKER) (test jgiy=164) 12 % MONOCYTES RELATIVE PERCENT (BEAKER) (test ayag=150) 3 % EOSINOPHILS RELATIVE PERCENT (BEAKER) (test pwxe=993) 1 % BASOPHILS RELATIVE PERCENT (BEAKER) (test qofm=145) 0 % NEUTROPHILS ABSOLUTE COUNT (BEAKER) (test egdc=281) 4.30 K/ L 1.56-6.13 LYMPHOCYTES ABSOLUTE COUNT (BEAKER) (test doff=421) 0.63 K/ L 1.18-3.74 MONOCYTES ABSOLUTE COUNT (BEAKER) (test auqs=234) 0.16 K/ L 0.24-0.36 EOSINOPHILS ABSOLUTE COUNT (BEAKER) (test mnte=006) 0.03 K/ L 0.04-0.36 BASOPHILS ABSOLUTE COUNT (BEAKER) (test zbwf=728) 0.01 K/ L 0.01-0.08 IMMATURE GRANULOCYTES-RELATIVE PERCENT (BEAKER) (test fffp=2682) 1 % 0-1 POCT-GLUCOSE [id number] 11:32:00* Test Item Value Reference Range Comments POC-GLUCOSE METER (BEAKER) (test wwpc=8161) 119 mg/dL 70-[address] [facility] [address] [facility] [address] BASIC METABOLIC [id number] 16:02:00* Test Item Value Reference Range Comments SODIUM (BEAKER) (test wbst=883) 139 meq/L 136-145 POTASSIUM (BEAKER) (test zyjg=288) 4.1 meq/L 3.5-5.1 CHLORIDE (BEAKER) (test nxjr=330) 112 meq/L 98-107 CO2 (BEAKER) (test xiei=272) 22 meq/L 22-29 BLOOD UREA NITROGEN (BEAKER) (test yqqh=123) 15 mg/dL 7-21 CREATININE (BEAKER) (test jbmx=777) 0.71 mg/dL 0.57-1.25 GLUCOSE RANDOM (BEAKER) (test wjoi=184) 76 mg/dL 70-105 CALCIUM (BEAKER) (test wdlp=002) 8.3 mg/dL 8.4-10.2 EGFR (BEAKER) (test lxua=0703) mL/min/1.73 sq m INSUFFICIENT CLINICAL DATA TO CALCULATE ESTIMATED GFR. RAD, CHEST, 2 [id number] 15:10:00Reason for exam:->SHORTNESS OF BREATHReason for exam:->HEADACHEIs the patient ?->UnknownFINAL REPORT PA and Lateral views of the chest dated 09/03/2017 Clinical information: SHORTNESS OF BREATHHEADACHE Comment: Heart is normal in size. Pulmonary vasculature is unremarkable. There is opacity in the left lower lobe suggestive subsegmental atelectasis or pneumonia. The rest of the lungs are clear. No pleural effusion is present. Impression: Left lower lobe subsegmental atelectasis or pneumonia. Signed: Rosie Rodrigues MDReport Verified Date/Time: 09/03/2017 15:10:16 Reading Location: [address] Ortho Consult Reading Room , BRAIN, WITHOUT [id number] 13:53:00Reason for exam:->headacheIs the patient ?->UnknownWhat is the patient's sedation requirement?->No SedationFINAL REPORT CT Head without contrast CLINICAL HISTORY: h eadache TECHNIQUE: Contiguous axial images through the head without contrast. Th is exam was performed according to the departmental dose optimization program wh ich includes automated exposure control, adjustment of the mA and/or kV accordin g to the patient size, and/or use of an iterative reconstruction technique. COMP ARISON: None FINDINGS: There is no CT evidence of acute infarct or intracranial hemorrhage. There is no hydrocephalus, midline shift, or apparent mass effect. T here are no extra-axial fluid collections. The skull is intact. The visualized p aranasal sinuses are well-aerated. IMPRESSION: No CT evidence of acute infarct, hemorrhage, or hydrocephalus. Signed: Hien Guerrero MDReport Verified Date/Time: 09/03/2017 13:53:27 Reading Location: [facility] B1 C013V Neuro Reading Room El ectronically signed by: HIEN GUERRERO M.D. on 09/03/2017 01:53 PM SCREEN, [id number] 13:20:00* Test Item Value Reference Range Comments TEST URINE (BEAKER) (test plph=335) Negative CBC (HEMOGRAM ONLY)2017-09-03 13:06:00* Test Item Value Reference Range Comments WHITE BLOOD CELL COUNT (BEAKER) (test olfe=235) 3.2 K/ L 3.5-10.5 RED BLOOD CELL COUNT (BEAKER) (test puxt=929) 3.73 M/ L 3.93-5.22 HEMOGLOBIN (BEAKER) (test tqax=178) 10.9 GM/DL 11.2-15.7 HEMATOCRIT (BEAKER) (test ypfj=744) 33.4 % 34.1-44.9 MEAN CORPUSCULAR VOLUME (BEAKER) (test bebk=316) 89.5 fL 79.4-94.8 MEAN CORPUSCULAR HEMOGLOBIN (BEAKER) (test atha=287) 29.2 pg 25.6-32.2 MEAN CORPUSCULAR HEMOGLOBIN CONC (BEAKER) (test dpnm=176) 32.6 GM/DL 32.2-35.5 RED CELL DISTRIBUTION WIDTH (BEAKER) (test nvaq=930) 13.1 % 11.7-14.4 PLATELET COUNT (BEAKER) (test fybu=800) 241 K/CU MM 150-450 MEAN PLATELET VOLUME (BEAKER) (test qork=968) 10.4 fL 9.4-12.3 NUCLEATED RED BLOOD CELLS (BEAKER) (test eiyw=266) 0 /100 WBC 0-0 SPUTUM CULTURE + GRAM [id number] 20:39:00* Test Item Value Reference Range Comments CULTURE (BEAKER) (test tdtn=7744) Oropharyngeal contamination, specimen rejected. Recollect requested. GRAM STAIN RESULT (BEAKER) (test ydaf=2921) <1+ WBCs GRAM STAIN RESULT (BEAKER) (test gmkk=15219) 10-15 epithelial cells GRAM STAIN RESULT (BEAKER) (test xneh=93215) <1+ gram negative rods GRAM STAIN RESULT (BEAKER) (test znxw=300471) 2+ gram positive cocci in pairs and clusters TROPONIN [id number] 15:44:00* Test Item Value Reference Range Comments TROPONIN I (BEAKER) (test demw=482) < ng/mL 0.00-0.03 Troponin I (TnI) levels must be interpreted in the context of the presenting sym ptoms and the clinical findings. Elevated TnI levels indicate myocardial damage, but are not specific for ischemic heart disease. Elevated TnI levels are seen in patients with other cardiac conditions (including myocarditis and congestive h eart failure), and slight TnI elevations occur in patients with other conditions , including sepsis, renal failure, acidosis, acute neurological disease, and per sistent tachyarrhythmia.CT, CHEST WITH IV CONTRAST- PE TEST [id number] 01:19:00Reason for exam:->CHEST PAINx 3 daysIs the patient ?->NoWhat is the patient's sedation requirement?->No SedationFINAL REPORT CLINICAL HISTORY: Chest pain. FINDINGS: Multiple axial images of the chest were performed after the uncomplicated administration of IV contrast, utilizing a pulmonary embolism protocol. Post-processing coronal reformats were created and interpreted. This exam was performed according to our departmental dose-optimization program, which includes automated exposure control, adjustment of the mA and/or kV according to patient size and/or use of the iterative reconstruction technique. Study quality:Adequate. Comparison:04/05/2011 Pulmonary arteries: No pulmonary embolism. Lung parenchyma: Stable 3 mm noncalcified right upper lobe nodule. Low lung volumes. Curvilinear opacity in the lower lungs suggesting atelectasis. Pleural effusion: None. Pneumothorax: None. Tracheobronchial tree: No significant findings. Pulmonary vasculature: No si gnificant findings. Cardiac contours and great vessels: No significant findings. Mediastinum: No significant findings. Lymph Nodes: No adenopathy in the mediast inum or karel. Skeleton: No acute abnormality. Limited images of upper abdomen: H epatic steatosis IMPRESSION: No pulmonary embolism. 3 mm noncalcified right upp er lobe nodule, stable since March 2011. Hepatic steatosis. Signed: JeysonSe goodman MDReport Verified Date/Time: 04/20/2017 01:19:58 Reading Location: [address] Reading Room W/PLT COUNT & AUTO [id number] 22:43:00* Test Item Value Reference Range Comments WHITE BLOOD CELL COUNT (BEAKER) (test xrmu=507) 7.1 K/ L 3.5-10.5 RED BLOOD CELL COUNT (BEAKER) (test ecrg=475) 3.40 M/ L 3.93-5.22 HEMOGLOBIN (BEAKER) (test ihfg=124) 10.3 GM/DL 11.2-15.7 HEMATOCRIT (BEAKER) (test gdwq=139) 31.0 % 34.1-44.9 MEAN CORPUSCULAR VOLUME (BEAKER) (test ytfc=003) 91.2 fL 79.4-94.8 MEAN CORPUSCULAR HEMOGLOBIN (BEAKER) (test cyvb=914) 30.3 pg 25.6-32.2 MEAN CORPUSCULAR HEMOGLOBIN CONC (BEAKER) (test iqoz=840) 33.2 GM/DL 32.2-35.5 RED CELL DISTRIBUTION WIDTH (BEAKER) (test rbfx=629) 13.2 % 11.7-14.4 PLATELET COUNT (BEAKER) (test rght=056) 206 K/CU MM 150-450 MEAN PLATELET VOLUME (BEAKER) (test sixm=643) 10.0 fL 9.4-12.3 NUCLEATED RED BLOOD CELLS (BEAKER) (test kxgd=301) 0 /100 WBC 0-0 NEUTROPHILS RELATIVE PERCENT (BEAKER) (test isin=379) 81 % LYMPHOCYTES RELATIVE PERCENT (BEAKER) (test cfrk=443) 13 % MONOCYTES RELATIVE PERCENT (BEAKER) (test gcty=550) 6 % EOSINOPHILS RELATIVE PERCENT (BEAKER) (test iced=550) 0 % BASOPHILS RELATIVE PERCENT (BEAKER) (test utvq=954) 0 % NEUTROPHILS ABSOLUTE COUNT (BEAKER) (test olbs=296) 5.69 K/ L 1.56-6.13 LYMPHOCYTES ABSOLUTE COUNT (BEAKER) (test frpi=138) 0.90 K/ L 1.18-3.74 MONOCYTES ABSOLUTE COUNT (BEAKER) (test symc=888) 0.42 K/ L 0.24-0.36 EOSINOPHILS ABSOLUTE COUNT (BEAKER) (test lkgp=583) 0.01 K/ L 0.04-0.36 BASOPHILS ABSOLUTE COUNT (BEAKER) (test pvyb=236) 0.01 K/ L 0.01-0.08 IMMATURE GRANULOCYTES-RELATIVE PERCENT (BEAKER) (test dsdn=5279) 0 % 0-1 BASIC METABOLIC [id number] 22:20:00* Test Item Value Reference Range Comments SODIUM (BEAKER) (test geft=859) 138 meq/L 136-145 POTASSIUM (BEAKER) (test yafc=729) 3.2 meq/L 3.5-5.1 CHLORIDE (BEAKER) (test gpos=918) 109 meq/L 98-107 CO2 (BEAKER) (test ylhr=237) 22 meq/L 22-29 BLOOD UREA NITROGEN (BEAKER) (test nsjv=794) 17 mg/dL 7-21 CREATININE (BEAKER) (test wtvk=038) 0.73 mg/dL 0.57-1.25 GLUCOSE RANDOM (BEAKER) (test gnqr=877) 116 mg/dL 70-105 CALCIUM (BEAKER) (test ievh=142) 8.4 mg/dL 8.4-10.2 EGFR (BEAKER) (test iwem=6692) mL/min/1.73 sq m INSUFFICIENT CLINICAL DATA TO CALCULATE ESTIMATED GFR. CREATINE KINASE (CK), TOTAL AND [id number] 22:04:00* Test Item Value Reference Range Comments CREATINE KINASE TOTAL (BEAKER) (test gkkr=511) 61 U/L 29-200 CREATINE KINASE-MB (BEAKER) (test morb=663) 0.7 ng/mL 0.0-6.6 CREATINE KINASE-MB INDEX (BEAKER) (test keww=868) 1.1 % CK-MB Reference Range:<6.7 Normal6.7-10.0 Borderline>10.0 Abnormal TROPONIN [id number] 22:04:00* Test Item Value Reference Range Comments TROPONIN I (BEAKER) (test tris=695) < ng/mL 0.00-0.03 Troponin I (TnI) levels must be interpreted in the context of the presenting sym ptoms and the clinical findings. Elevated TnI levels indicate myocardial damage, but are not specific for ischemic heart disease. Elevated TnI levels are seen in patients with other cardiac conditions (including myocarditis and congestive h eart failure), and slight TnI elevations occur in patients with other conditions , including sepsis, renal failure, acidosis, acute neurological disease, and per sistent tachyarrhythmia.B-TYPE NATRIURETIC FACTOR (BNP)2017-04-19 22:04:00* Test Item Value Reference Range Comments B-TYPE NATRIURETIC PEPTIDE (BEAKER) (test vuiv=648) 128 pg/mL 0-100 [id number] 21:56:00* Test Item Value Reference Range Comments MAGNESIUM (BEAKER) (test vkbf=697) 2.0 mg/dL 1.6-2.6 [id number] 21:49:00* Test Item Value Reference Range Comments PROTIME (BEAKER) (test kkuf=220) 13.9 seconds 11.7-14.7 INR (BEAKER) (test ccch=553) 1.1 <=5.9 PARTIAL THROMBOPLASTIN TIME (BEAKER) (test pefa=818) 27.4 seconds 22.5-36.0 RECOMMENDED COUMADIN/WARFARIN INR THERAPY RANGESSTANDARD DOSE: 2.0 - 3.0 Inclu zana: PROPHYLAXIS for venous thrombosis, systemic embolization; TREATMENT for paulina ous thrombosis and/or pulmonary embolus.HIGH RISK: Target INR is 2.5-3.5 for pat ients with mechanical heart valves.RAD, CHEST, 2 [id number] 18:43:00Reason for exam:->CHEST PAINx 3 daysFINAL REPORT History: Chest pain. FINDINGS: Compared to April 10, 2011, the heart and mediastinum are stable. As before, the heart is enlarged. Lung volumes have increased but remain low. Diffuse bilateral pulmonary airspace opacity has near completely resolved. Slight increased opacity persists in both lung bases, left greater than right, likely atelectasis. Lungs are otherwise clear. No large pleural effusions or edema. Bones are unremarkable. IMPRESSION: 1. Mild cardiomegaly and probable bilateral lower lobe atelectasis. Otherwise, negative chest. Signed: Ted Vivas Verified Date/Time: 04/19/2017 18:43:14 Reading Location: [facility] Diagnostic Imaging Reading Room - [place] [address] [address] [place] [address] Patient Name: JOE TAFOYA MR #: [id number] : 1985 Age/Sex: 31/F Req #: [id number] Adm Physician: Ordered by: LIAT ROLLINS [employer] Report #: [id number] Location: ER Room/Bed: Procedure: [id number] CT/CT BRAIN WO Exam Date: 08/08 08/24 Exam Time: 1650 REPORT STATUS: Signed E xam: Head CT without contrast History: Headache, dizziness Comparison studi es: Head CT 09/26/2016 Technique: Axial images were obtained from the [facility] ll base to the vertex. Coronal and sagittal images reconstructed from the axia l data. Intravenous contrast: None Findings: Scalp: No abnormalities . Bones: No fractures, blastic or lytic lesions. Brain sulci: Appropriate for age. Ventricles: Normal in size and configuration. No hydrocephalus. Ex tra-axial spaces: No masses, no fluid collection. Parenchyma: No abnorm al densities. No masses, acute hemorrhage, acute or chronic vascular insults. Sellar/suprasellar region: No abnormalities. Craniocervical junction: Pa tent foramen magnum. No Chiari one malformation. Incidental findings: Ph ysiologic calcifications in the globi pallidi.. IMPRESSION: 1. No ab normalities. 2. No changes from the previous head CT of 09/26/2016. Cheli d by: Dr. Richi Batres M.D. on 08/27/2017 5:22 PM Dictated By: RICHI POLLOCK MD 172 Transc ribed By: DAYA on 08/27/171721 COPY TO: LIAT ROLLINS [employer]
[2018-05-22] MEDS ORDERED: KETOROLAC TROMETHAMINE 30 MG/ML VIAL IV STA (14:58)
[2018-05-22] MEDS ORDERED: HALOPERIDOL LACTATE 5 MG/ML VIAL IV ONE (15:00)
[2018-05-22 16:18] VITALS: BP 118/72
== END 2018-05-22 16:40 | disposition home or self-care (01) ==
LOC: ER 11:57
DX: G43.701 Chronic migraine without aura, not intractable, with status migrainosus (principal); R11.0 Nausea; I10 Essential (primary) hypertension; M32.9 Systemic lupus erythematosus, unspecified; E03.9 Hypothyroidism, unspecified; D64.9 Anemia, unspecified
CPT/HCPCS: 99283; J1630; J1885

== ENCOUNTER 2018-12-07 09:13 | Emergency (ER) | payer BC, OTHER ==
[~2018-12-07] VITALS: Ht 157.5 cm; Wt 86.2 kg
--- OUTSIDE RECORDS SUMMARY | 2018-12-07 09:15 | XMS REPORT | Clinical Summary ---
Author Author [facility] Organization [facility] Address Unknown Phone Unavailable Care Team Providers Care Assessment Counselor Name Role Phone Pcp, No PCP Unavailable Allergies No Known Allergies Medications End Date Status Medication Sig Dispensed Refills Start Date Active hydroxychloroquine Take 1 tablet 30 tablet 1 (PLAQUENIL) 200 mg tablet (200 mg 8 total) by mouth daily. Active pantoprazole (PROTONIX) Take 1 tablet 30 tablet 1 40 MG tablet (40 mg total) 8 by mouth daily. Active sulfamethoxazole-trimetho Take 1 tablet 24 tablet 1 prim (BACTRIM DS) 800-160 (160 mg of 8 mg per tablet trimethoprim total) by mouth 3 (three) times a week. 04/20/2019 Active albuterol HFA (VENTOLIN Inhale 2 1 Inhaler 0 HFA) 90 mcg/actuation puffs by 8 inhaler mouth via inhaler every 4 (four) hours as needed for Wheezing. 09/22/2018 acetaminophen (TYLENOL) Take 2 30 tablet 0 325 MG tablet tablets (650 8 mg total) by mouth every 4 (four) hours as needed for up to 360 days. 09/28/2018 furosemide (LASIX) 40 MG Take 1 tablet 30 tablet 1 tablet (40 mg total) 8 by mouth daily. 09/27/2018 gabapentin (NEURONTIN) Take 1 90 capsule 1 300 MG capsule capsule (300 8 mg total) by mouth 3 (three) times daily. 09/28/2018 losartan (COZAAR) 50 MG Take 1 tablet 30 tablet 1 tablet (50 mg total) 8 by mouth daily. 09/27/2018 mycophenolate (CELLCEPT) Take 1 tablet 60 tablet 1 500 mg tablet (500 mg 8 total) by mouth 2 (two) times daily. 04/14/2018 acetaminophen-codeine Take 1-2 20 tablet 0 (TYLENOL #3) 300-30 mg tablets by 8 per tablet mouth every 6 (six) hours as needed for Pain for up to 10 days. Max Daily Amount: 8 tablets 04/27/2018 cephalexin (KEFLEX) 500 Take 1 14 capsule 0 MG capsule capsule (500 8 mg total) by mouth 2 (two) times daily for 7 days. 05/04/2018 ferrous sulfate 325 (65 Take 1 tablet 14 tablet 0 FE) MG tablet (325 mg 8 total) by mouth daily for 14 days. 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); Rheumatoid arthritis flare (HCC) 07/01/2018 Emergency Emergency Medicine - 07/02/2018 07/01/2018 Travel Johnson Jhaveri MD Other acute gastritis without hemorrhage (Primary Dx); Arthralgia of both hands; Tension-type headache, not intractable, unspecified chronicity pattern; Acute intractable headache, unspecified headache type 05/11/2018 Emergency Emergency Medicine - 05/12/2018 Arturo Loaiza MD Other systemic lupus erythematosus with other organ involvement (HCC) (Primary Dx); Acute intractable headache, unspecified headache type; Acute cystitis without hematuria; Dyspnea and respiratory abnormality 04/20/2018 Emergency Emergency Medicine Oswald Cordova MD Upper back pain on right side (Primary Dx); Bilateral pleural effusion; Acute intractable headache, unspecified headache type; Shortness of breath; Dyspnea on exertion 04/04/2018 Emergency Emergency Medicine 04/04/2018 Orders Only General Internal Medicine after 12/06/2017 Social History Date Tobacco Use Types Packs/Day Years Used Never Smoker Smokeless Tobacco: Never Used Tobacco Cessation: Counseling Given: No Alcohol Use Drinks/Week oz/Week Comments No Sex Assigned at Date Recorded Not on file Industry Job Start Date Occupation Not on file Not on file Not on file Travel End Travel History Travel Start No recent travel history available. Last Filed Vital Signs Time Taken Vital Sign Reading 07/02/2018 12:49 AM [employer] Blood Pressure 135/70 07/02/2018 12:49 AM [employer] Pulse 89 07/02/2018 12:49 AM [employer] Temperature 37.3 C (99.1 F) 07/02/2018 12:49 AM [employer] Respiratory Rate 20 07/02/2018 12:49 AM [employer] Oxygen Saturation 99% - Inhaled Oxygen - Concentration 07/01/2018 7:47 PM [employer] Weight 83.9 kg (185 lb) 07/01/2018 7:47 PM [employer] Height 157.5 cm (5' 2") 07/01/2018 7:47 PM [employer] Body Mass Index 33.84 Plan of Treatment Not on file Procedures Comments Procedure Name Priority Date/Time Associated Diagnosis CBC W/PLT COUNT & AUTO STAT 07/01/2018 DIFFERENTIAL 8:14 PM [employer] BASIC METABOLIC PANEL (7) STAT 07/01/2018 8:14 PM [employer] CBC W/PLT COUNT & AUTO STAT 07/01/2018 DIFFERENTIAL 8:14 PM [employer] C-REACTIVE PROTEIN STAT 05/11/2018 11:57 PM CDT URINALYSIS W/ MICROSCOPIC STAT 05/11/2018 10:08 PM CDT XR CHEST 2 VIEWS STAT 05/11/2018 9:31 PM CDT ECG 12-LEAD STAT 05/11/2018 9:02 PM CDT CBC W/PLT COUNT & AUTO STAT 05/11/2018 DIFFERENTIAL 8:56 PM CDT COMPLEMENT COMPONENT C3 STAT 05/11/2018 8:56 PM CDT COMPLEMENT COMPONENT C4 STAT 05/11/2018 8:56 PM CDT TROPONIN I STAT 05/11/2018 8:56 PM CDT TSH/FREE T4 IF INDICATED STAT 05/11/2018 8:56 PM CDT COMPREHENSIVE METABOLIC STAT 05/11/2018 PANEL 8:56 PM CDT CBC W/PLT COUNT & AUTO STAT 05/11/2018 DIFFERENTIAL 8:56 PM CDT SCREEN, URINE STAT 04/20/2018 10:00 PM CDT URINALYSIS W/ MICROSCOPIC STAT 04/20/2018 10:00 PM CDT XR CHEST 2 VIEWS STAT 04/20/2018 7:57 PM CDT CBC W/PLT COUNT & AUTO STAT 04/20/2018 DIFFERENTIAL 7:56 PM CDT TROPONIN I STAT 04/20/2018 7:56 PM CDT BASIC METABOLIC PANEL (7) STAT 04/20/2018 7:56 PM CDT CBC W/PLT COUNT & AUTO STAT 04/20/2018 DIFFERENTIAL 7:56 PM CDT ECG 12-LEAD Routine 04/20/2018 6:55 PM CDT Procedure Note - Interface, External Ris In - 04/20/2018 11:17 PM CDT Ventricula r Rate 87 BPM Atrial Rate 87 BPM P-R Interval 162 ms QRS Duration 84 ms Q-T Interval 382 ms QTC Calculatio n(Bazett) 459 ms P [place] 38 degrees R [place] 7 degrees T [place] 32 degrees Normal sinus rhythm Normal ECG When compared with ECG of 8 10:36, Left posterior fascicular block is no longer Present ECG 12-LEAD STAT 04/20/2018 6:[address] CHEST PE TEST DESIGN STAT 04/04/2018 8:[address] BRAIN WITHOUT IV STAT 04/04/2018 CONTRAST 6:45 PM CDT POCT , URINE STAT 04/04/2018 2:57 PM CDT CBC W/PLT COUNT & AUTO STAT 04/04/2018 DIFFERENTIAL 2:47 PM CDT BASIC METABOLIC PANEL (7) STAT 04/04/2018 2:47 PM CDT CBC W/PLT COUNT & AUTO STAT 04/04/2018 DIFFERENTIAL 2:47 PM CDT ECG 12-LEAD Routine 04/04/2018 10:36 AM CDT ECG 12-LEAD Routine 04/04/2018 10:36 AM CDT Procedure Note - Interface, External Ris In - 04/04/2018 5:23 PM CDT Ventricula r Rate 79 BPM Atrial Rate 79 BPM P-R Interval 164 ms QRS Duration 82 ms Q-T Interval 384 ms QTC Calculatio n(Bazett) 440 ms P [place] 46 degrees R [place] 113 degrees T [place] 28 degrees Normal sinus rhythm Left posterior fascicular block Abnormal ECG When compared with ECG of 8 23:55, Left posterior fascicular block is now Present after 12/06/2017 Results * CBC with platelet count + automated diff (07/01/2018 8:14 PM [employer]) Only the most recent of 4 results within the time period is included. WBC 2.6 (L) 3.5 - 10.5 K/L [facility] RBC 2.83 (L) 3.93 - 5.22 M/L [facility] Hemoglobin 8.0 (L) 11.2 - 15.7 GM/DL [facility] Hematocrit 24.6 (L) 34.1 - 44.9 % [facility] MCV 86.9 79.4 - 94.8 fL [facility] MCH 28.3 25.6 - 32.2 pg [facility] MCHC 32.5 32.2 - 35.5 GM/DL [facility] RDW 13.7 11.7 - 14.4 % [facility] Platelets 253 150 - 450 K/CU MM [facility] MPV 9.9 9.4 - 12.3 fL [facility] nRBC 0 0 - 0 /100 WBC [facility] % Neutros 72 % [facility] % Lymphs 21 % [facility] % Monos 4 % [facility] % Eos 2 % [facility] % Baso 0 % [facility] # Neutros 1.86 1.56 - 6.13 K/L [facility] # Lymphs 0.54 (L) 1.18 - 3.74 K/L [facility] # Monos 0.10 (L) 0.24 - 0.36 K/L [facility] # Eos 0.04 0.04 - 0.36 K/L [facility] # Baso 0.00 (L) 0.01 - 0.08 K/L [facility] Immature 2 (H) 0 - 1 % [facility] Granulocytes-Relative [facility] Specimen Blood Performing Organization Address City/State/Zipcode Phone Number [facility] [address] [place] [address] MEDICAL [facility]ENTER * Basic Metabolic Panel (07/01/2018 8:14 PM [employer]) Only the most recent of 3 results within the time period is included. Sodium 138 136 - 145 meq/L [facility] Potassium 3.8 3.5 - 5.1 meq/L [facility] Chloride 112 (H) 98 - 107 meq/L [facility] CO2 18 (L) 22 - 29 meq/L [facility] BUN 14 7 - 21 mg/dL [facility] Creatinine 0.93 0.57 - 1.25 mg/dL [facility] Glucose 90 70 - 105 mg/dL [facility] Calcium 8.3 (L) 8.4 - 10.2 mg/dL [facility] EGFR Comment: INSUFFICIENT CLINICAL mL/min/1.73 sq m [facility] DATA TO CALCULATE ESTIMATED [facility] GFR. Specimen Blood Performing Organization Address City/[facility]/Zipcode Phone Number [address] * C-Reactive Protein (05/11/2018 11:57 PM CDT) CRP 1.94 (H) 0.00 - 0.50 mg/dL [facility] Specimen Blood Performing Organization Address City/[facility]/Zipcode Phone Number [address] * Urinalysis w/Microscopic (05/11/2018 10:08 PM CDT) Only the most recent of 2 results within the time period is included. Color, UA Light Yellow [facility] Clarity, UA Clear [facility] Specific [place], UA 1.014 1.001 - 1.035 [facility] pH, UA 6.0 5.0 - 8.0 [facility] Protein, UA 300 mg/dL (A) Negative [facility] Glucose, UA Negative Negative [facility] Ketones, UA Negative Negative [facility] Bilirubin, UA Negative Negative [facility] Blood, UA Moderate (A) Negative [facility] Nitrite, UA Negative Negative [facility] Leukocytes, UA Negative Negative [facility] Urobilinogen, UA 0.2 0.2 - 1.0 mg/dL [facility] RBC, UA 9 /HPF [facility] WBC, UA 4 /HPF [facility] Bacteria, UA Rare [facility] Mucus Rare [facility] Squam Epithel, UA <1 /HPF [facility] Hyaline Casts, UA 7 /LPF [facility] Specimen Source [facility] Specimen Urine Performing Organization Address City/State/Zipcode Phone Number [facility] [address] [place] [address] MEDICAL CENTER * XR chest 2 views (05/11/2018 9:31 PM CDT) Only the most recent of 2 results within the time period is included. Specimen Narrative Performed At FINAL REPORT [facility] TECHNIQUE: Frontal and lateral views of the [...] pleural effusions have resolved. Signed: Eliceo Burch MD Report Verified Date/Time:05/11/2018 21:41:24 Reading Location: [address] Consult Reading Room Procedure Note Interface, [...] pleural effusions have resolved. Signed: Eliceo Burch MD Report Verified Date/Time: 05/11/2018 21:41:24 Reading Location: [facility] B1 [id number] Consult Reading Room Performing Organization Address City/State/[facility] Phone Number [facility] * ECG 12 lead (05/11/2018 9:02 PM CDT) Only the most recent of 3 results within the time period is included. Specimen Narrative Performed At Ventricular Rate 71 BPM [facility] Atrial Rate 71 BPM P-R Interval 162 ms QRS Duration 80 ms Q-T Interval 408 ms QTC Calculation(Bazett) 443 ms P [place] 37 degrees R [place] -20 degrees T [place] 45 degrees Normal sinus rhythm Normal ECG When compared with ECG of 20-APR-2018 18:55, No significant change was found Confirmed by MD STRICKLAND JORGE ([id number]) on 05/13/2018 2:42:55 PM Procedure Note Interface, External Ris In - 05/13/2018 2:43 PM CDT Ventricular Rate 71 BPM Atrial Rate 71 BPM P-R Interval 162 ms QRS Duration 80 ms Q-T Interval 408 ms QTC Calculation(Bazett) 443 ms P [place] 37 degrees R [place] -20 degrees T [place] 45 degrees Normal sinus rhythm Normal ECG When compared with ECG of 20-APR-2018 18:55, No significant change was found Confirmed by MD STRICKLAND JORGE ([id number]) on 05/13/2018 2:42:55 PM Performing Organization Address City/State/[employer] Phone Number [facility] * TSH/Free T4 If Indicated (05/11/2018 8:56 PM CDT) TSH 4.50 0.35 - 4.94 uIU/mL [facility] Specimen Blood Performing Organization Address City/State/Zipcode Phone Number [address] * Troponin I (05/11/2018 8:56 PM CDT) Only the most recent of 2 results within the time period is included. Troponin I <0.01 0.00 - 0.03 ng/mL [facility] Specimen Blood Narrative Performed At Troponin I (TnI) levels must be interpreted in the context of the presenting [facility] symptoms and the clinical findings. Elevated TnI levels indicate myocardial [facility] damage, but are not specific for ischemic heart disease. Elevated TnI levels are seen in patients with other cardiac conditions (including myocarditis and congestive heart failure), and slight TnI elevations occur in patients with other conditions, including sepsis, renal failure, acidosis, acute neurological disease, and persistent tachyarrhythmia. Performing Organization Address [facility] Phone Number [address] * Complement Component C3 (05/11/2018 8:56 PM CDT) C3 Complement 68 (L) 82 - 193 mg/dL [facility] Specimen Blood Performing Organization Address [facility] Phone Number [address] * Complement Component C4 (05/11/2018 8:56 PM CDT) C4 Complement 11 (L) 15 - 57 mg/dL [facility] Specimen Blood Performing Organization Address [facility] Phone Number [address] * Comprehensive metabolic panel (05/11/2018 8:56 PM CDT) Protein, Total 6.3Comment: Specimen slightly 6.0 - 8.3 gm/dL [facility] hemolyzed [facility] Albumin 2.6 (L)Comment: Specimen 3.5 - 5.0 g/dL [facility] slightly hemolyzed [facility] Alkaline Phosphatase 84 40 - 150 U/L [facility] Total Bilirubin 0.2Comment: Specimen slightly 0.2 - 1.2 mg/dL [facility] Sodium 138 136 - 145 meq/L [facility] Potassium 4.5Comment: Specimen slightly 3.5 - 5.1 meq/L [facility] Chloride 117 (H) 98 - 107 meq/L [facility] CO2 16 (L) 22 - 29 meq/L [facility] BUN 21 7 - 21 mg/dL [facility] Creatinine 0.84Comment: Specimen slightly 0.57 - 1.25 mg/dL [facility] Glucose 90 70 - 105 mg/dL [facility] Calcium 7.8 (L) 8.4 - 10.2 mg/dL [facility] AST 23Comment: Specimen slightly 5 - 34 U/L [facility] ALT 15Comment: Specimen slightly 6 - 55 U/L [facility] EGFR Comment: INSUFFICIENT CLINICAL mL/min/1.73 sq m [facility] DATA TO CALCULATE ESTIMATED [facility] GFR. Specimen Blood Performing Organization Address City/[facility]/Zipcode Phone Number [facility] [address] [place] [address] [phone] [place] [address] * Screen, urine (04/20/2018 10:00 PM CDT) Preg Test, Ur Negative [facility] Specimen Urine Performing Organization Address [facility] Phone Number [facility] [address] [place] [address] [facility] * CT chest for pulmonary embolus (04/04/2018 8:03 PM CDT) Specimen Narrative Performed At FINAL REPORT [facility] CLINICAL HISTORY: Is pain and shortness of [...] findings. IMPRESSION: No pulmonary embolism. Signed: Shruti Benítez MD Report Verified Date/Time:04/04/2018 20:11:45 Reading Location: [address] Procedure Note Interface, External Ris In - [...] findings. IMPRESSION: No pulmonary embolism. Signed: Shruti Benítez MD Report Verified Date/Time: 04/04/2018 20:11:45 Reading Location: [address] Reading Room Performing Organization Address City/State/Zipcode Phone Number [facility] * CT brain without IV contrast (04/04/2018 6:45 PM CDT) Specimen Narrative Performed At FINAL REPORT [facility] CT head without contrast 04/04/2018 6:54 PM [...] evaluation with MRI is recommended. Signed: Krishna Toro MD Report Verified Date/Time:04/04/2018 18:55:24 Reading Location: [address] Neuro Reading Room Procedure Note Interface, [...] evaluation with MRI is recommended. Signed: Krishna Toro MD Report Verified Date/Time: 04/04/2018 18:55:24 Reading Location: [facility] B1 [id number] Neuro Reading Room Performing Organization Address City/State/Zipcode Phone Number [facility] * POCT , urine (04/04/2018 2:57 PM CDT) Test Urine, POC Negative Control line present?, Yes POC Background clear?, POC Yes UPT Cassette Lot #, POC [id number] UPT Cassette Expiration [id number] Date, POC Specimen Urine after 12/06/2017 Insurance Payer Benefit Subscriber ID Type Phone Address Plan / Group MEDICAID - MEDICAID MGD MEDICAID xxxxxxxxx Medicaid CARE COMM Contracted HEALTH CHOICE Advance Directives For more information, please contact: [facility] [address] [place] [address] Date Inactivated Comments Code Status Date Activated 09/27/2017 8:35 PM Full Code 09/17/2017 6:32 PM This code status was determined by: Patient 04/21/2017 4:47 PM Full Code 04/20/2017 3:45 AM This code status was determined by: Patient
--- OUTSIDE RECORDS SUMMARY | 2018-12-07 09:15 | XMS REPORT | Continuity of Care Document ---
Author Author [facility] Interface Address Unknown Phone Unavailable Problems Problem Status Onset Date Classification Date Reported Comments Source INJECTAFER 750MG J1439 // CPT: 22259 // Active 11/21/2018 [facility] Obesity Active 06/07/2017 Diagnosis 06/16/2017 [facility] Depression, major Active 06/07/2017 Diagnosis 06/16/2017 [facility] SLE Active 06/07/2017 Diagnosis 06/16/2017 [facility] Hypothyroidism Active 06/07/2017 Diagnosis 06/16/2017 [facility] Dyspnea on exertion Active 06/07/2017 Diagnosis 06/16/2017 [facility] Encounter for immunization Active 06/07/2017 Diagnosis 06/16/2017 [facility] Tension headache Active 06/07/2017 Diagnosis 06/16/2017 [facility] Medications Medication Details Route Status Patient Instructions Ordering Provider Order Date Source CYCLOBENZAPRINE HCL 1 By Mouth three times a day as needed for muscle spasm Active 1 By Mouth three times a day as needed for muscle spasm 06/07/2017 [facility] PREDNISONE one tablet By Mouth qday Active one tablet By Mouth qday 06/07/2017 [facility] AZATHIOPRINE one tablet By Mouth Twice a Day Active one tablet By Mouth Twice a Day 06/07/2017 [facility] PROPRANOLOL HCL one tablet By Mouth qday Active one tablet By Mouth qday 06/07/2017 [facility] LEVOTHYROXINE SODIUM One tab by mouth daily Active One tab by mouth daily 06/07/2017 [facility] Allergies, Adverse Reactions, Alerts Substance Category Reaction Severity Reaction type Status Date Reported Comments Source Immunizations Immunization Date Given Site Status Last Updated Comments Source influenza immunization (Flu Vax) has been administered 06/07/2017 completed [facility] Results Order Name Results Value Reference Range Date Interpretation Comments Source Vital Signs Vital Sign Value Date Comments Source Diastolic (mm Hg) 58 06/07/2017 [facility] Systolic (mm Hg) 104 06/07/2017 [facility] Height 62 06/07/2017 [facility] Heart Rate 72 06/07/2017 [facility] Respitory Rate 21 06/07/2017 [facility] Temperature Oral (F) 98.7 F 06/07/2017 [facility] Weight 196.20 06/07/2017 [facility] Encounters Location Location Details Encounter Type Encounter Number Reason For Visit Attending Provider ADM Date DC Date Status Source [facility] New Patient Detailed - [id number] Janice Patience DO 06/07/2017 [facility] Procedures Procedure Code Date Perfomer Comments Source INFLUENZA VACCINE QUADRIVALENT 3 YRS PLUS IM [id number] 06/07/2017 [facility]
--- NOTE | 2018-12-07 09:27 | NUR ---
seen in triage by
--- NOTE | 2018-12-07 09:58 | Diagnostic Imaging Report ---
EXAMINATION: CHEST 2 VIEWS INDICATION: Cough. COMPARISON: None FINDINGS: TUBES and LINES: None. LUNGS: Low lung volumes. There are patchy opacities at the lung bases, left greater than right. No evidence of pulmonary edema. PLEURA: No pleural effusion or pneumothorax. HEART AND MEDIASTINUM: The cardiomediastinal silhouette is unremarkable. BONES AND SOFT TISSUES: No acute osseous abnormality. UPPER ABDOMEN: No free air under the diaphragm. IMPRESSION: Low lung volumes with patchy opacities of the lung bases, which may represent pneumonia in the setting of cough. Suggest follow-up chest radiograph in 6-8 weeks to assess for resolution. Signed by: Dr. James Hernandez MD on 12/07/2018 9:55 AM
[2018-12-07 10:27] VITALS: BP 121/75
[2018-12-12] MEDS ORDERED: TESSALON PERLE100 MG PO (06:35)
[2018-12-12] MEDS ORDERED: LEVAQUIN500 MG PO (06:35)
[2018-12-12] MEDS ORDERED: TYLENOL WITH C1 EACH PO (06:36)
== END 2018-12-07 10:40 | disposition home or self-care (01) ==
LOC: ER 09:13
DX: R05 Cough (principal); J20.9 Acute bronchitis, unspecified; I10 Essential (primary) hypertension; M32.9 Systemic lupus erythematosus, unspecified; K21.9 Gastro-esophageal reflux disease without esophagitis; E05.90 Thyrotoxicosis, unspecified without thyrotoxic crisis or storm
CPT/HCPCS: 71046; 99283

== ENCOUNTER 2018-12-09 09:38 | Observation (INO) | payer BC, OTHER ==
[~2018-12-09] VITALS: Ht 157.5 cm; Wt 77.1 kg
[2018-12-09] MEDS ORDERED: SODIUM CHLORIDE 0.9% 1000ML 1,000 ML IV STA ×2 (09:41→10:10)
--- OUTSIDE RECORDS SUMMARY | 2018-12-09 09:41 | XMS REPORT | Clinical Summary ---
Author Author [facility] Organization [facility] Address Unknown Phone Unavailable Care Team Providers Care Printer Machine Name Role Phone Pcp, No PCP Unavailable [...] 04/04/2018 Orders Only General Internal Medicine after 12/08/2017 Social History Date Tobacco Use Types Packs/Day [...] Taken Vital Sign Reading 07/02/2018 12:49 AM [employer] Blood Pressure 135/70 07/02/2018 12:49 AM [employer] Pulse 89 07/02/2018 12:49 AM [employer] Temperature 37.3 C (99.1 F) 07/02/2018 12:49 AM [employer] Respiratory Rate 20 07/02/2018 12:49 AM [employer] Oxygen Saturation 99% - Inhaled Oxygen - Concentration 07/01/2018 7:47 PM [employer]OB [employer]EM[employer] Weight 83.9 kg (185 lb) 07/01/2018 7:47 PM [employer] Height 157.5 cm (5' 2") 07/01/2018 7:47 PM [employer] Body Mass Index 33.84 Plan of Treatment Not on file Procedures Comments Procedure Name Priority Date/Time Associated Diagnosis CBC W/PLT COUNT & AUTO STAT 07/01/2018 DIFFERENTIAL 8:14 PM [employer] BASIC METABOLIC PANEL (7) STAT 07/01/2018 8:14 PM [employer] CBC W/PLT COUNT & AUTO STAT 07/01/2018 DIFFERENTIAL 8:14 PM [employer] C-REACTIVE PROTEIN STAT 05/11/2018 11:57 PM CDT [...] ms QTC Calculatio n(Bazett) 459 ms P Irvine 38 degrees R Irvine 7 degrees T Irvine 32 degrees Normal sinus rhythm Normal ECG [...] ms QTC Calculatio n(Bazett) 440 ms P Irvine 46 degrees R Irvine 113 degrees T Irvine 28 degrees Normal sinus rhythm Left posterior fascicular block Abnormal ECG When compared with ECG of 8 23:55, Left posterior fascicular block is now Present after 12/08/2017 Results * CBC with platelet count + automated diff (07/01/2018 8:14 PM [employer]OB [employer]EM[employer]) Only the most recent of 4 results within the time period is included. WBC 2.6 (L) 3.5 - 10.5 K/L [facility] RBC 2.83 (L) 3.93 - 5.22 M/L [facility] Hemoglobin 8.0 (L) 11.2 - 15.7 GM/DL [facility] Hematocrit 24.6 (L) 34.1 - 44.9 % [facility] MCV 86.9 79.4 - 94.8 fL [facility] MCH 28.3 25.6 - 32.2 pg [facility] MCHC 32.5 32.2 - 35.5 GM/DL [facility] RDW 13.7 11.7 - 14.4 % [facility] Platelets 253 150 - 450 K/CU MM [facility] MPV 9.9 9.4 - 12.3 fL [facility] nRBC 0 0 - 0 /100 WBC [facility] % Neutros 72 % [facility] % Lymphs 21 % [facility] % Monos 4 % [facility] % Eos 2 % [facility] % Baso 0 % [facility] # Neutros 1.86 1.56 - 6.13 K/L [facility] # Lymphs 0.54 (L) 1.18 - 3.74 K/L [facility] # Monos 0.10 (L) 0.24 - 0.36 K/L [facility] # Eos 0.04 0.04 - 0.36 K/L [facility] # Baso 0.00 (L) 0.01 - 0.08 K/L [facility] Immature 2 (H) 0 - 1 % [facility] Granulocytes-Relative [facility] Specimen Blood Performing Organization Address City/State/Zipcode Phone Number [facility] [address] [place] [address] [facility] * Basic Metabolic Panel (07/01/2018 8:14 PM JOB FOREM[employer]) Only the most recent of 3 results within the time period is included. Sodium 138 136 - 145 meq/L [facility] Potassium 3.8 3.5 - 5.1 meq/L [facility] Chloride 112 (H) 98 - 107 meq/L [facility] CO2 18 (L) 22 - 29 meq/L [facility] BUN 14 7 - 21 mg/dL [facility] Creatinine 0.93 0.57 - 1.25 mg/dL [facility] Glucose 90 70 - 105 mg/dL [facility] Calcium 8.3 (L) 8.4 - 10.2 mg/dL [facility] EGFR Comment: INSUFFICIENT CLINICAL mL/min/1.73 sq m [facility] DATA TO CALCULATE ESTIMATED [facility] GFR. Specimen Blood Performing Organization Address City/[facility]/Zipcode Phone Number [address] * C-Reactive Protein (05/11/2018 11:57 PM CDT) CRP 1.94 (H) 0.00 - 0.50 mg/dL [facility] Specimen Blood Performing Organization Address City/[facility]/Zipcode Phone Number [address] * Urinalysis w/Microscopic (05/11/2018 10:08 PM CDT) Only the most recent of 2 results within the time period is included. Color, UA Light Yellow [facility] Clarity, UA Clear [facility] Specific Upham, UA 1.014 1.001 - 1.035 [facility] pH, UA 6.0 5.0 - 8.0 [facility] Protein, UA 300 mg/dL (A) Negative [facility] Glucose, UA Negative Negative [facility] Ketones, UA Negative Negative [facility] Bilirubin, UA Negative Negative [facility] Blood, UA Moderate (A) Negative [facility] Nitrite, UA Negative Negative [facility] Leukocytes, UA Negative Negative [facility] Urobilinogen, UA 0.2 0.2 - 1.0 mg/dL [facility] RBC, UA 9 /HPF [facility] WBC, UA 4 /HPF [facility] Bacteria, UA Rare [facility] Mucus Rare [facility] Squam Epithel, UA <1 /HPF [facility] Hyaline Casts, UA 7 /LPF [facility] Specimen Source [facility] Specimen Urine Performing Organization Address City/State/Zipcode Phone Number [facility] [address] [place] [address] MED[facility]ENTER * XR chest [...] MD Report Verified Date/Time:05/11/2018 21:41:24 Reading Location: [address] Consult Reading Room Procedure Note Interface, [...] Report Verified Date/Time: 05/11/2018 21:41:24 Reading Location: [facility] B1 [id number] Consult Reading Room Performing Organization Address City/State/[facility] Phone Number [facility] * ECG 12 lead (05/11/2018 9:02 PM CDT) Only the most recent of 3 results within the time period is included. Specimen Narrative Performed At Ventricular Rate 71 BPM [facility] Atrial Rate 71 BPM P-R Interval 162 ms QRS Duration 80 ms Q-T Interval 408 ms QTC Calculation(Bazett) 443 ms P Irvine 37 degrees R Irvine -20 degrees T Irvine 45 degrees Normal sinus rhythm Normal ECG When compared with ECG of 20-APR-2018 18:55, No significant change was found Confirmed by MD STRICKLAND JORGE ([id number]) on 05/13/2018 2:42:55 PM Procedure Note Interface, External Ris In - 05/13/2018 2:43 PM CDT Ventricular Rate 71 BPM Atrial Rate 71 BPM P-R Interval 162 ms QRS Duration 80 ms Q-T Interval 408 ms QTC Calculation(Bazett) 443 ms P Irvine 37 degrees R Irvine -20 degrees T Irvine 45 degrees Normal sinus rhythm Normal ECG When compared with ECG of 20-APR-2018 18:55, No significant change was found Confirmed by MD STRICKLAND JORGE ([id number]) on 05/13/2018 2:42:55 PM Performing Organization Address City/State/[place] Phone Number [facility] * TSH/Free T4 If Indicated (05/11/2018 8:56 PM CDT) TSH 4.50 0.35 - 4.94 uIU/mL [facility] Specimen Blood Performing Organization Address City/State/Zipcode Phone Number [address] * Troponin I (05/11/2018 8:56 PM CDT) Only the most recent of 2 results within the time period is included. Troponin I <0.01 0.00 - 0.03 ng/mL [facility] Specimen Blood Narrative Performed At Troponin I (TnI) levels must be interpreted in the context of the presenting [facility] symptoms and the clinical findings. Elevated TnI levels indicate myocardial [facility] damage, but are not specific for ischemic heart disease. Elevated TnI levels are seen in patients with other cardiac conditions (including myocarditis and congestive heart failure), and slight TnI elevations occur in patients with other conditions, including sepsis, renal failure, acidosis, acute neurological disease, and persistent tachyarrhythmia. Performing Organization Address [facility] Phone Number [address] * Complement Component C3 (05/11/2018 8:56 PM CDT) C3 Complement 68 (L) 82 - 193 mg/dL [facility] Specimen Blood Performing Organization Address [facility] Phone Number [address] * Complement Component C4 (05/11/2018 8:56 PM CDT) C4 Complement 11 (L) 15 - 57 mg/dL [facility] Specimen Blood Performing Organization Address [facility] Phone Number [address] * Comprehensive metabolic panel (05/11/2018 8:56 PM CDT) Protein, Total 6.3Comment: Specimen slightly 6.0 - 8.3 gm/dL [facility] hemolyzed [facility] Albumin 2.6 (L)Comment: Specimen 3.5 - 5.0 g/dL [facility] slightly hemolyzed [facility] Alkaline Phosphatase 84 40 - 150 U/L [facility] Total Bilirubin 0.2Comment: Specimen slightly 0.2 - 1.2 mg/dL [facility] Sodium 138 136 - 145 meq/L [facility] Potassium 4.5Comment: Specimen slightly 3.5 - 5.1 meq/L [facility] Chloride 117 (H) 98 - 107 meq/L [facility] CO2 16 (L) 22 - 29 meq/L [facility] BUN 21 7 - 21 mg/dL [facility] Creatinine 0.84Comment: Specimen slightly 0.57 - 1.25 mg/dL [facility] Glucose 90 70 - 105 mg/dL [facility] Calcium 7.8 (L) 8.4 - 10.2 mg/dL [facility] AST 23Comment: Specimen slightly 5 - 34 U/L [facility] ALT 15Comment: Specimen slightly 6 - 55 U/L [facility] EGFR Comment: INSUFFICIENT CLINICAL mL/min/1.73 sq m [facility] DATA TO CALCULATE ESTIMATED [facility] GFR. Specimen Blood Performing Organization Address City/[facility]/Zipcode Phone Number [facility] [address] [place] [address] [phone] [place] [address] * Screen, urine (04/20/2018 10:00 PM CDT) Preg Test, Ur Negative [facility] Specimen Urine Performing Organization Address [facility] Phone Number [facility] [address] [place] [address] [facility] * CT chest for pulmonary embolus (04/04/2018 8:03 PM CDT) Specimen Narrative Performed At FINAL REPORT [facility] CLINICAL HISTORY: Is pain [...] MD Report Verified Date/Time:04/04/2018 20:11:45 Reading Location: [address] Procedure Note Interface, External Ris In [...] Report Verified Date/Time: 04/04/2018 20:11:45 Reading Location: [address] Reading Room Performing Organization Address City/State/Zipcode Phone Number [facility] * CT brain without IV contrast (04/04/2018 6:45 PM CDT) Specimen Narrative Performed At FINAL REPORT [facility] CT head without contrast 04/04/2018 6:54 PM [...] MD Report Verified Date/Time:04/04/2018 18:55:24 Reading Location: [address] Neuro Reading Room Procedure Note Interface, [...] Report Verified Date/Time: 04/04/2018 18:55:24 Reading Location: [facility] B1 [id number] Neuro Reading Room Performing Organization Address City/State/Zipcode Phone Number [facility] * POCT , urine (04/04/2018 2:57 PM CDT) Test Urine, POC Negative Control line present?, Yes POC Background clear?, POC Yes UPT Cassette Lot #, POC [id number] UPT Cassette Expiration [id number] Date, POC Specimen Urine after 12/08/2017 Insurance Payer Benefit Subscriber ID Type Phone Address Plan / Group MEDICAID - MEDICAID MGD MEDICAID xxxxxxxxx Medicaid CARE COMM Contracted HEALTH CHOICE Advance Directives For more information, please contact: [facility] [address] [place] [address] Date Inactivated Comments Code Status Date Activated 09/27/2017 8:35 PM Full Code 09/17/2017 6:32 PM This code status was determined by: Patient 04/21/2017 4:47 PM Full Code 04/20/2017 3:45 AM This code status was determined by: Patient
[2018-12-09] MEDS ORDERED: KETOROLAC TROMETHAMINE 30 MG/ML VIAL IV NR (10:10)
[2018-12-09] MEDS ORDERED: ONDANSETRON HCL INJ 2MG/ML 2ML 2 MG/ML VIAL IV NR (10:10)
[2018-12-09] MEDS ORDERED: MORPHINE SULFATE INJ 4 MG/ML INJ 1ML IV NR (10:30)
[2018-12-09 11:07] LABS: EOSINOPHILS # (AUTO) 0.1 (0.0-0.4); EOSINOPHILS % 3.7 % (0.0-6.0); HEMATOCRIT 32.3 % (34.2-44.1); HEMOGLOBIN 10.3 g/dL (12.0-16.0); LYMPHOCYTES # (AUTO) 0.6 (1.0-3.2); LYMPHOCYTES % 18.4 % (18.0-39.1); MEAN CORPUSCULAR HEMOGLOBIN 28.2 pg (28-32); MEAN CORPUSCULAR HGB CONC 31.9 g/dL (31-35); MEAN CORPUSCULAR VOLUME 88.5 fL (81-99); MONOCYTES # (AUTO) 0.1 (0.2-0.8); MONOCYTES % 3.5 % (4.4-11.3); NEUTROPHILS # (AUTO) 2.5 (2.1-6.9); PLATELET COUNT 320 x10e3/uL (140-360); RED BLOOD COUNT 3.65 x10e6/uL (3.6-5.1); RED CELL DISTRIBUTION WIDTH 15.3 % (11.7-14.4)
[2018-12-09 11:18] LABS: INR 0.88; PROTHROMBIN TIME 12.4 seconds (11.9-14.5)
[2018-12-09 11:19] LABS: PARTIAL THROMBOPLASTIN TIME 25.7 seconds (23.8-35.5)
--- NOTE | 2018-12-09 11:30 | NUR ---
REC'D PT IN RM 6 FROM SHANNAN VELÁSQUEZ FOR CONTINUITY OF CARE. PT RATING ABD. PAIN 05/16. V.S.S. WILL FOLLOW THRU ON ORDERS.
[2018-12-09 11:31] LABS: B-TYPE NATRIURETIC PEPTIDE2 298.6 pg/mL (0-100)
--- NOTE | 2018-12-09 11:34 | Diagnostic Imaging Report ---
Frontal and lateral views of the chest. HISTORY: SEEN 2 DAYS AGO, ? EARLY INFILTRATE, NOW WORSE SOB, pain, shortness of breath COMPARISON: Chest radiographs December 07, 2018 DISCUSSION: Lungs: Low lung volumes result in bibasilar vascular crowding, accentuation of the pulmonary interstitial markings, central pulmonary vasculature, and the cardiac silhouette. Allowing for these limitations, the findings are as follows: Increased peribronchial interstitial markings. Stable mild bibasilar atelectasis versus scarring. No evidence of a new consolidative pneumonia or pulmonary alveolar edema. Pleura: No pleural effusion or pneumothorax. Heart and mediastinum: The cardiomediastinal silhouette appears unremarkable. Bones and soft tissues: Appear unremarkable. IMPRESSION: 1. Low lung volumes with stable atelectasis versus scarring. 2. Findings which can be seen in the setting of a nonspecific bronchitis. 3. Recommend short term follow up routine PA and chest radiographs, in 6-8 weeks, to evaluate for resolution. Signed by: Dr. Adi Jacques D.O., M.M.M. on 12/09/2018 11:31 AM
[2018-12-09 11:37] LABS: BILIRUBIN,URINE NEGATIVE (NEGATIVE); CLARITY,URINE CLOUDY (CLEAR); COLOR,URINE YELLOW (YELLOW); KETONES,URINE NEGATIVE (NEGATIVE); LEUKOCYTE ESTERASE ,URINE NEGATIVE (NEGATIVE); NITRITE,URINE NEGATIVE (NEGATIVE); PROTEIN,URINE DIPSTICK 2+ (NEGATIVE); URINE UROBILINOGEN 0.2 mg/dL (0.2 - 1)
[2018-12-09 11:38] LABS: AMORPHOUS SEDIMENT,URINE FEW (FEW); BACTERIA,URINE MANY /HPF; EPITHELIAL CELLS,URINE MODERATE /LPF; MUCUS,URINE FEW (RARE)
[2018-12-09 11:59] LABS: ALANINE AMINOTRANSFERASE 14 IU/L (0-55); ALBUMIN 3.2 g/dL (3.5-5.0); ALBUMIN/GLOBULIN RATIO 0.7 (0.8-2.0); ALKALINE PHOSPHATASE 75 IU/L (40-150); ANION GAP 14.4 mmol/L (8-16); BLOOD UREA NITROGEN 29 mg/dL (7-26); BUN/CREATININE RATIO 22 (6-25); CALCIUM 8.9 mg/dL (8.4-10.2); CARBON DIOXIDE 18 mmol/L (22-29); CHLORIDE 111 mmol/L (98-107); CREATINE KINASE 222 IU/L (29-168); CREATININE, SERUM 1.31 mg/dL (0.57-1.11); EST GLOMERULAR FILTRATION RATE 46 ML/MIN (60-); GLUCOSE 86 mg/dL (74-118); MAGNESIUM 1.8 MG/DL (1.3-2.1); POTASSIUM 3.4 mmol/L (3.5-5.1); SODIUM 140 mmol/L (136-145)
[2018-12-09] MEDS ORDERED: CEFTRIAXONE SOD 1 GM VIAL IV SCH (12:30)
[2018-12-09] MEDS: CEFTRIAXONE SOD 1 GM/NS 50 ML 50 ML IV SCH (12:30)
[2018-12-09] MEDS: AZITHROMYCIN 500MG/NS 250 ML 250 ML IV SCH (13:15)
--- NOTE | 2018-12-09 13:41 | NUR ---
PT. UPDATED ON PENDING ADMIT
[2018-12-09] MEDS ORDERED: IOPAMIDOL 370 MG/ML 200 ML INFUS..BTL INJ ONE (14:01)
[2018-12-09] MEDS ORDERED: SODIUM CHLORIDE 0.9% 50ML 50 ML ONE (14:01)
[2018-12-09] MEDS ORDERED: ALBUTEROL SULF 0.083% NEB SOLN 3 ML NEB NEB PRN (14:45)
[2018-12-09] MEDS ORDERED: IPRATROPIUM BROMIDE 0.02% 2.5 ML NEB NEB PRN (14:45)
--- NOTE | 2018-12-09 15:01 | Diagnostic Imaging Report ---
CT CHEST WITH CONTRAST HISTORY: Pain, lupus, r/o pe protocol COMPARISON: Chest radiographs December 09, 2018. TECHNIQUE: CT scan of the chest WITH intravenous contrast, using a PE protocol. Coronal and sagittal reformats are provided. PROTOCOL: PE IV CONTRAST: 100 cc of Isovue-370. RADIATION DOSE: Total DLP: 421.41 mGy*cm Dose modulation, iterative reconstruction, and/or weight based adjustment of the mA/kV was utilized to reduce the radiation dose to as low as reasonably achievable. COMPLICATIONS: None FINDINGS: Lines/tubes: None. Lungs and Airways: Low lung volumes result in bibasilar vascular crowding, accentuation of the pulmonary interstitial markings, central pulmonary vasculature, and the cardiac silhouette. Allowing for these limitations, the findings are as follows: Bilateral lower lobe and lingular atelectasis along with patchy airspace opacities, most notably about the bronchi. Pleura: No effusion or pneumothorax. Heart and mediastinum: The thyroid gland is normal. The heart and pericardium are within normal limits. Abdomen: Limited evaluation of the upper abdomen. Lymph nodes: No pathologically enlarged lymph node identified. Vessels: No evidence of a pulmonary embolus. Bones: No acute osseous lesion is identified. Soft tissues: Unremarkable IMPRESSION: 1. No pulmonary embolism. 2. Bibasilar atelectasis and patchy peribronchial airspace opacities, considerations include aspiration and bronchopneumonia in the appropriate setting. Signed by: Dr. Adi Jacques D.O., M.M.M. on 12/09/2018 2:58 PM
--- OUTSIDE RECORDS SUMMARY | 2018-12-09 15:25 | XMS REPORT | Clinical Summary ---
Author Author [facility] Organization [facility] Address Unknown Phone Unavailable Care Team Providers Care Inner Diameter Grinder Tool Name Role Phone Pcp, No PCP Unavailable [...] Taken Vital Sign Reading 07/02/2018 12:49 AM IMPORT DISPATCHER Blood Pressure 135/70 07/02/2018 12:49 AM IMPORT DISPATCHER Pulse 89 07/02/2018 12:49 AM IMPORT DISPATCHER Temperature 37.3 C (99.1 F) 07/02/2018 12:49 AM IMPORT DISPATCHER Respiratory Rate 20 07/02/2018 12:49 AM IMPORT DISPATCHER Oxygen Saturation 99% - Inhaled Oxygen - Concentration 07/01/2018 7:47 PM IMPORT DISPATCHER Weight 83.9 kg (185 lb) 07/01/2018 7:47 PM IMPORT DISPATCHER Height 157.5 cm (5' 2") 07/01/2018 7:47 PM IMPORT DISPATCHER Body Mass Index 33.84 Plan of Treatment Not on file Procedures Comments Procedure Name Priority Date/Time Associated Diagnosis CBC W/PLT COUNT & AUTO STAT 07/01/2018 DIFFERENTIAL 8:14 PM IMPORT DISPATCHER BASIC METABOLIC PANEL (7) STAT 07/01/2018 8:14 PM IMPORT DISPATCHER CBC W/PLT COUNT & AUTO STAT 07/01/2018 DIFFERENTIAL 8:14 PM IMPORT DISPATCHER C-REACTIVE PROTEIN STAT 05/11/2018 11:57 PM CDT [...] ms QTC Calculatio n(Bazett) 459 ms P Guy 38 degrees R Guy 7 degrees T Guy 32 degrees Normal sinus rhythm Normal ECG [...] ms QTC Calculatio n(Bazett) 440 ms P Guy 46 degrees R Guy 113 degrees T Guy 28 degrees Normal sinus rhythm Left posterior fascicular block Abnormal ECG When compared with ECG of 8 23:55, Left posterior fascicular block is now Present after 12/08/2017 Results * CBC with platelet count + automated diff (07/01/2018 8:14 PM IMPORT DISPATCHER) Only the most recent of 4 results within the time period is included. WBC 2.6 (L) 3.5 - 10.5 K/L [facility] RBC 2.83 (L) 3.93 - 5.22 M/L [facility] Hemoglobin 8.0 (L) 11.2 - 15.7 GM/DL [facility] Hematocrit 24.6 (L) 34.1 - 44.9 % [facility] MCV 86.9 79.4 - 94.8 fL [facility] MCH 28.3 25.6 - 32.2 pg [facility] MCHC 32.5 32.2 - 35.5 GM/DL [facility] RDW 13.7 11.7 - 14.4 % [facility] Platelets 253 150 - 450 K/CU MM [facility] MPV 9.9 9.4 - 12.3 fL [facility] nRBC 0 0 - 0 /100 WBC [facility] % Neutros 72 % [facility] % Lymphs 21 % [facility] % Monos 4 % [facility] % Eos 2 % [facility] % Baso 0 % [facility] # Neutros 1.86 1.56 - 6.13 K/L [facility] # Lymphs 0.54 (L) 1.18 - 3.74 K/L [facility] # Monos 0.10 (L) 0.24 - 0.36 K/L [facility] # Eos 0.04 0.04 - 0.36 K/L [facility] # Baso 0.00 (L) 0.01 - 0.08 K/L [facility] Immature 2 (H) 0 - 1 % [facility] Granulocytes-Relative [facility] Specimen Blood Performing Organization Address City/State/Zipcode Phone Number [facility] [address] [place] [address] MEDICAL CENTER * Basic Metabolic Panel (07/01/2018 8:14 PM IMPORT DISPATCHER) Only the most recent of 3 results within the time period is included. Sodium 138 136 - 145 meq/L [facility] Potassium 3.8 3.5 - 5.1 meq/L [facility] Chloride 112 (H) 98 - 107 meq/L [facility] CO2 18 (L) 22 - 29 meq/L [facility] BUN 14 7 - 21 mg/dL [facility] Creatinine 0.93 0.57 - 1.25 mg/dL [facility] Glucose 90 70 - 105 mg/dL [facility] Calcium 8.3 (L) 8.4 - 10.2 mg/dL [facility] EGFR Comment: INSUFFICIENT CLINICAL mL/min/1.73 sq m [facility] DATA TO CALCULATE ESTIMATED [facility] GFR. Specimen Blood Performing Organization Address City/[facility]/Zipcode Phone Number [address] * C-Reactive Protein (05/11/2018 11:57 PM CDT) CRP 1.94 (H) 0.00 - 0.50 mg/dL [facility] Specimen Blood Performing Organization Address City/[facility]/Zipcode Phone Number [address] * Urinalysis w/Microscopic (05/11/2018 10:08 PM CDT) Only the most recent of 2 results within the time period is included. Color, UA Light Yellow [facility] Clarity, UA Clear [facility] Specific [place], UA 1.014 1.001 - 1.035 [facility] pH, UA 6.0 5.0 - 8.0 [facility] Protein, UA 300 mg/dL (A) Negative [facility] Glucose, UA Negative Negative [facility] Ketones, UA Negative Negative [facility] Bilirubin, UA Negative Negative [facility] Blood, UA Moderate (A) Negative [facility] Nitrite, UA Negative Negative [facility] Leukocytes, UA Negative Negative [facility] Urobilinogen, UA 0.2 0.2 - 1.0 mg/dL [facility] RBC, UA 9 /HPF [facility] WBC, UA 4 /HPF [facility] Bacteria, UA Rare [facility] Mucus Rare [facility] Squam Epithel, UA <1 /HPF [facility] Hyaline Casts, UA 7 /LPF [facility] Specimen Source [facility] Specimen Urine Performing Organization Address City/State/Zipcode Phone Number [facility] [address] [place] [address] MEDICAL CENTER * XR chest [...] MD Report Verified Date/Time:05/11/2018 21:41:24 Reading Location: [address] Consult Reading Room Procedure Note Interface, [...] Report Verified Date/Time: 05/11/2018 21:41:24 Reading Location: [facility] B1 [id number] Consult Reading Room Performing Organization Address City/State/[facility] Phone Number [email or web address] [email or web address] * ECG 12 lead (05/11/2018 9:02 PM CDT) Only the most recent of 3 results within the time period is included. Specimen Narrative Performed At Ventricular Rate 71 BPM GE MUSE Atrial Rate 71 BPM P-R Interval 162 ms QRS Duration 80 ms Q-T Interval 408 ms QTC Calculation(Bazett) 443 ms P Guy 37 degrees R Guy -20 degrees T Guy 45 degrees Normal sinus rhythm Normal ECG When compared with ECG of 20-APR-2018 18:55, No significant change was found Confirmed by MD STRICKLAND JORGE ([id number]) on 05/13/2018 2:42:55 PM Procedure Note Interface, External Ris In - 05/13/2018 2:43 PM CDT Ventricular Rate 71 BPM Atrial Rate 71 BPM P-R Interval 162 ms QRS Duration 80 ms Q-T Interval 408 ms QTC Calculation(Bazett) 443 ms P Guy 37 degrees R Guy -20 degrees T Guy 45 degrees Normal sinus rhythm Normal ECG When compared with ECG of 20-APR-2018 18:55, No significant change was found Confirmed by MD STRICKLAND JORGE ([id number]) on 05/13/2018 2:42:55 PM Performing Organization Address City/State/[employer] Phone Number [email or web address] * TSH/Free T4 If Indicated (05/11/2018 8:56 PM CDT) TSH 4.50 0.35 - 4.94 uIU/mL [facility] Specimen Blood Performing Organization Address City/State/Zipcode Phone Number [address] * Troponin I (05/11/2018 8:56 PM CDT) Only the most recent of 2 results within the time period is included. Troponin I <0.01 0.00 - 0.03 ng/mL [facility] Specimen Blood Narrative Performed At Troponin I (TnI) levels must be interpreted in the context of the presenting [facility] symptoms and the clinical findings. Elevated TnI levels indicate myocardial [facility] damage, but are not specific for ischemic heart disease. Elevated TnI levels are seen in patients with other cardiac conditions (including myocarditis and congestive heart failure), and slight TnI elevations occur in patients with other conditions, including sepsis, renal failure, acidosis, acute neurological disease, and persistent tachyarrhythmia. Performing Organization Address [facility] Centercode Phone Number [address] * Complement Component C3 (05/11/2018 8:56 PM CDT) C3 Complement 68 (L) 82 - 193 mg/dL [facility] Specimen Blood Performing Organization Address [facility] Cent[facility] Phone Number [address] * Complement Component C4 (05/11/2018 8:56 PM CDT) C4 Complement 11 (L) 15 - 57 mg/dL [facility] Specimen Blood Performing Organization Address [facility] Centercode Phone Number [address] * Comprehensive metabolic panel (05/11/2018 8:56 PM CDT) Protein, Total 6.3Comment: Specimen slightly 6.0 - 8.3 gm/dL [facility] hemolyzed [facility] Albumin 2.6 (L)Comment: Specimen 3.5 - 5.0 g/dL [facility] slightly hemolyzed [facility] Alkaline Phosphatase 84 40 - 150 U/L [facility] Total Bilirubin 0.2Comment: Specimen slightly 0.2 - 1.2 mg/dL [facility] Sodium 138 136 - 145 meq/L [facility] Potassium 4.5Comment: Specimen slightly 3.5 - 5.1 meq/L [facility] Chloride 117 (H) 98 - 107 meq/L [facility] CO2 16 (L) 22 - 29 meq/L [facility] BUN 21 7 - 21 mg/dL [facility] Creatinine 0.84Comment: Specimen slightly 0.57 - 1.25 mg/dL [facility] Glucose 90 70 - 105 mg/dL [facility] Calcium 7.8 (L) 8.4 - 10.2 mg/dL [facility] AST 23Comment: Specimen slightly 5 - 34 U/L [facility] ALT 15Comment: Specimen slightly 6 - 55 U/L [facility] EGFR Comment: INSUFFICIENT CLINICAL mL/min/1.73 sq m [facility] DATA TO CALCULATE ESTIMATED [facility] GFR. Specimen Blood Performing Organization Address City/[facility]/Zipcode Phone Number [facility] [address] [place] [address] [phone] [place] [address] * Screen, urine (04/20/2018 10:00 PM CDT) Preg Test, Ur Negative [facility] Specimen Urine Performing Organization Address [facility] Centercode Phone Number [facility] [address] [place] [address] [facility] * CT chest for pulmonary embolus (04/04/2018 8:03 PM CDT) Specimen Narrative Performed At FINAL REPORT GE [facility] CLINICAL HISTORY: Is pain and shortness of [...] MD Report Verified Date/Time:04/04/2018 20:11:45 Reading Location: [address] Procedure Note Interface, External Ris In [...] Report Verified Date/Time: 04/04/2018 20:11:45 Reading Location: [address] Reading Room Performing Organization Address City/State/Zipcode Phone Number [facility] * CT brain without IV contrast (04/04/2018 6:45 PM CDT) Specimen Narrative Performed At FINAL REPORT [facility] CT head without contrast 04/04/2018 6:54 PM [...] MD Report Verified Date/Time:04/04/2018 18:55:24 Reading Location: [address] Neuro Reading Room Procedure Note Interface, [...] Report Verified Date/Time: 04/04/2018 18:55:24 Reading Location: [facility] B1 [id number] Neuro Reading Room Performing Organization Address City/State/Zipcode Phone Number [facility] * POCT , urine (04/04/2018 2:57 PM CDT) Test Urine, POC Negative Control line present?, Yes POC Background clear?, POC Yes UPT Cassette Lot #, POC [id number] UPT Cassette Expiration [id number] Date, POC Specimen Urine after 12/08/2017 Insurance Payer Benefit Subscriber ID Type Phone Address Plan / Group MEDICAID - MEDICAID MGD MEDICAID xxxxxxxxx Medicaid CARE COMM Contracted HEALTH CHOICE Advance Directives For more information, please contact: [facility] [address] [place] [address] Date Inactivated Comments Code Status Date Activated 09/27/2017 8:35 PM Full Code 09/17/2017 6:32 PM This code status was determined by: Patient 04/21/2017 4:47 PM Full Code 04/20/2017 3:45 AM This code status was determined by: Patient
[2018-12-09] MEDS ORDERED: OMEPRAZOLE40 MG PO (15:35)
[2018-12-09] MEDS ORDERED: IBUPROFEN600 MG PO (15:35)
[2018-12-09] MEDS ORDERED: MYCOPHENOLATE500 MG (15:35)
[2018-12-09] MEDS ORDERED: SYNTHROID88 MCG PO (15:35)
[2018-12-09] MEDS ORDERED: HYDROXYCHLOROQ200 MG PO (15:35)
[2018-12-09] MEDS ORDERED: FERROUS SULFAT325 MG PO (15:35)
[2018-12-09] MEDS ORDERED: AMITRIPTYLINE H10 MG PO (15:35)
[2018-12-09] MEDS ORDERED: VITAMIN D250000 UNIT PO (15:35)
[2018-12-09 16:03] VITALS: BP 118/74
[2018-12-09 16:04] VITALS: BP 118/74
[2018-12-09] MEDS: HYDROCODONE/APAP 10MG-325MG TAB PO PRN ×2 (16:04→20:14)
[2018-12-09 16:05] VITALS: BP 118/74
[2018-12-09] MEDS: SODIUM CHLORIDE 0.9% 1000ML 1,000 ML IV SCH ×2 (16:53→19:33)
--- NOTE | 2018-12-09 18:49 | NUR ---
Report given to oncoming shift.
[2018-12-09 18:54] VITALS: BP 118/74
[2018-12-09 20:00] VITALS: BP 119/63
--- NOTE | 2018-12-09 23:10 | NUR ---
Received patient with overdue cardiac marker test.
[2018-12-10] VITALS (9 sets, daily range): BP systolic 105–136; BP diastolic 58–83
[2018-12-10 00:52] LABS: CREATINE KINASE 112 IU/L (29-168)
[2018-12-10] MEDS: HYDROCODONE/APAP 10MG-325MG TAB PO PRN ×5 (01:58→19:00)
[2018-12-10] MEDS: SODIUM CHLORIDE 0.9% 1000ML 1,000 ML IV SCH ×3 (06:41→22:41)
[2018-12-10 07:32] LABS: BASOPHILS % 0.4 % (0.0-1.0); EOSINOPHILS # (AUTO) 0.1 (0.0-0.4); EOSINOPHILS % 2.9 % (0.0-6.0); HEMOGLOBIN 7.2 g/dL (12.0-16.0); LYMPHOCYTES # (AUTO) 0.6 (1.0-3.2); LYMPHOCYTES % 21.5 % (18.0-39.1); MEAN CORPUSCULAR HEMOGLOBIN 28.7 pg (28-32); MEAN CORPUSCULAR HGB CONC 32.1 g/dL (31-35); MEAN CORPUSCULAR VOLUME 89.2 fL (81-99); MONOCYTES # (AUTO) 0.1 (0.2-0.8); MONOCYTES % 4.7 % (4.4-11.3); NEUTROPHILS # (AUTO) 1.9 (2.1-6.9); NEUTROPHILS % 68.3 % (38.7-80.0); PLATELET COUNT 207 x10e3/uL (140-360); RED BLOOD COUNT 2.51 x10e6/uL (3.6-5.1); RED CELL DISTRIBUTION WIDTH 15.4 % (11.7-14.4)
[2018-12-10 08:01] LABS: ALANINE AMINOTRANSFERASE 11 IU/L (0-55); ALBUMIN 2.2 g/dL (3.5-5.0); ALBUMIN/GLOBULIN RATIO 0.7 (0.8-2.0); ALKALINE PHOSPHATASE 57 IU/L (40-150); ANION GAP 8.4 mmol/L (8-16); BLOOD UREA NITROGEN 14 mg/dL (7-26); BUN/CREATININE RATIO 22 (6-25); CALCIUM 7.7 mg/dL (8.4-10.2); CARBON DIOXIDE 18 mmol/L (22-29); CHLORIDE 115 mmol/L (98-107); CREATINE KINASE 99 IU/L (29-168); CREATININE, SERUM 0.64 mg/dL (0.57-1.11); EST GLOMERULAR FILTRATION RATE > 60 ML/MIN (60-); GLUCOSE 75 mg/dL (74-118); POTASSIUM 3.4 mmol/L (3.5-5.1); SODIUM 138 mmol/L (136-145)
[2018-12-10 08:22] LABS: HEMATOCRIT 22.4 % (34.2-44.1)
--- NOTE | 2018-12-10 08:31 | NUR ---
Lab Hgb and Hct level and Potassium 3.[address] Miranda, new order to recheck HH and potassium 40 meq PO
[2018-12-10] MEDS ORDERED: POTASSIUM CHLORIDE 20 MEQ TAB CR PO NR (09:00)
[2018-12-10 09:48] LABS: HEMATOCRIT 22.8 % (34.2-44.1)
[2018-12-10] MEDS ORDERED: SODIUM CHLORIDE 0.9% 250ML 250 ML IV ONE (10:00)
[2018-12-10] MEDS: CEFTRIAXONE SOD 1 GM/NS 50 ML 50 ML IV SCH (13:10)
--- NOTE | 2018-12-10 13:56 | NUR ---
SOCIAL WORK INITIAL ASSESSMENT Bottoming Machine Operator to bedside to discuss plan of care with patient/family. CM/SW role and care transitions discussed. Anticipated discharge plan discussed along with duration of care. CM/SW discussed patients right to make decisions in care. CM/SW work hours given. Patient lives: IN HOUSE WITH FAMILY Admit/Transfer: VIA ED POA/Emergency contact: MOTHER JOE [phone] Current/Previous Home Health: NONE PCP/Follow-up Care: PILO MCBRIDE Current/Previous DME: NONE Other Services: NONE Employment Status: STAY AT HOME Areas of Concerns: NONE Referral Needs: NONE Education Needs: NONE IMM/SOLIS given and signed (if applicable): NA Goal for discharge: RETURN HOME CM/SW left business card at the bedside with contact information. Name and number was also written on the patients whiteboard. Patient verbalized understanding of discussion. CM will follow-up with ongoing discharge and transition of care needs.
[2018-12-10] MEDS ORDERED: SODIUM CHLORIDE 0.9% 250ML 250 ML ONE ×2 (14:19→22:06)
--- NOTE | 2018-12-10 14:29 | NUR ---
H&P cc: sob and cough for 3 days HPI: 33yoF, PCP , developed sob/cough for 3 days, with associated ONEILL. Now improving after starting tx in hospital. Pt complains of B/L hand pain as well, also improving PMH: Lupus, hypothyroidism, anemia s/p transfusion last 2 months ago (2 units) Psx: none Allergies; see emr Fh/SH; single; no etoh/cigs meds; see MAR ROS; no f/c/s/N/V/D/leg pain/cp/skin rash/vision changes/back pain v/s: revd' PE tired appearing anicteric ns1s2 mod bs soft nt nd no e/t a&ox3; forrester skin dry n. affect labs/meds; revd A/P: 33yoF Bronchopneumonia UTI Leukopenia and Moderate anemia Hypokalemia and DEONNA and MEtabolic acidosis Dehydration Overweight BMI 31.1 Lupus PLAN IV abx IVF f/u cx restart home meds Edison Miranda MD, PhD.
--- NOTE | 2018-12-10 15:54 | NUR ---
Nutrition Screen Note RD Recommendation for Physician: -Continue current diet -Ensure Enlive BID Plan of Care: RD following, monitoring for tolerance and adequacy Nutrition reason for involvement: Nutrition Risk Trigger- MST Primary Diagnose(s): Bronchitis, lupus PMH: Hypothyroidism Anemia Lupus Ht: 62 in Wt: 170 lb BMI: 31 kg/m2 IBW: [address] Assessment: 12/10: 33 YOF admitted for lupus. Pt reports her intake has been poor for the past couple of months and she reported she has lost 50 pounds since July. Last EMR weight is from Jul 2018, where pt was 190 pounds, suggesting pt has lost 20 pounds within 5 months (10.5% weight loss). Pt stated she drinks Ensure at home, recommended Ensure Enlive supplement to receive in the hospital, pt requested to receive this-spoke with nurse about possible supplement initiation. Pt did state her appetite is improving and she is feeling better. Pt denied N/V/C/D, or chewing or swallowing issues. 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 Pt had no other questions or concerns. Chart reviewed. Labs and meds reviewed. Will continue to monitor. Current Diet: Regular Malnutrition Evaluation (12/10) The patient meets criteria for MILD protein-calorie malnutrition. Energy intake: <75% of estimated energy requirements for >3 months Weight loss: >7.5% in 3 months (Chronic) (10.5% weight loss) Fat loss: none Muscle loss: none Supporting Evidence: Fluid accumulation: none Functional Status: unable to evaluate Diet Education Needs Assessment: Diet education not indicated. Nutrition Care Level: mod Signed: Yandy Gilmore RD, LD
[2018-12-10] MEDS ORDERED: MYCOPHENOLATE MOFETIL 500 MG SCH (17:00)
[2018-12-10] MEDS: AZITHROMYCIN 500MG/NS 250 ML 250 ML IV SCH (17:57)
[2018-12-10] MEDS: MYCOPHENOLATE MOFETIL 250 MG CAP PO SCH (18:08)
[2018-12-10] MEDS: FAMOTIDINE 20 MG TAB PO SCH (18:08)
[2018-12-10] MEDS: FERROUS SULFATE 325 MG TAB PO SCH ×2 (18:08→21:19)
[2018-12-10] MEDS ORDERED: AMITRIPTYLINE HCL 10 MG TAB PO SCH (21:00)
[2018-12-10] MEDS: AMITRIPTYLINE HCL 25 MG TAB PO SCH (21:19)
[2018-12-11] MEDS: HYDROCODONE/APAP 10MG-325MG TAB PO PRN ×4 (00:10→13:46)
[2018-12-11 04:00] VITALS: BP 118/64
[2018-12-11] MEDS: LEVOTHYROXINE SODIUM 75 MCG TAB PO SCH (05:28)
[2018-12-11] MEDS: SODIUM CHLORIDE 0.9% 1000ML 1,000 ML IV SCH (05:28)
--- NOTE | 2018-12-11 05:38 | NUR ---
IM- progress note O/N; no events ROS; no f/c/s/N/V/D/leg pain/cp/skin rash/vision changes/back pain v/s: revd' PE tired appearing anicteric ns1s2 mod bs soft nt nd no e/t a&ox3; forrester skin dry n. affect labs/meds; revd A/P: 33yoF Bronchopneumonia UTI Leukopenia and Moderate anemia Hypokalemia and DEONNA and MEtabolic acidosis Dehydration Overweight BMI 31.1 Lupus PLAN IV abx IVF f/u cx restart home meds check labs; reduce fluids Edison Miranda MD, PhD.
[2018-12-11 06:16] LABS: BASOPHILS % 0.3 % (0.0-1.0); EOSINOPHILS # (AUTO) 0.1 (0.0-0.4); EOSINOPHILS % 2.4 % (0.0-6.0); HEMATOCRIT 27.2 % (34.2-44.1); HEMOGLOBIN 8.8 g/dL (12.0-16.0); LYMPHOCYTES # (AUTO) 0.3 (1.0-3.2); LYMPHOCYTES % 9.8 % (18.0-39.1); MEAN CORPUSCULAR HEMOGLOBIN 28.4 pg (28-32); MEAN CORPUSCULAR HGB CONC 32.4 g/dL (31-35); MEAN CORPUSCULAR VOLUME 87.7 fL (81-99); MONOCYTES # (AUTO) 0.1 (0.2-0.8); NEUTROPHILS # (AUTO) 2.8 (2.1-6.9); NEUTROPHILS % 82.7 % (38.7-80.0); PLATELET COUNT 229 x10e3/uL (140-360); RED CELL DISTRIBUTION WIDTH 15.4 % (11.7-14.4)
[2018-12-11 06:39] LABS: ANION GAP 10.1 mmol/L (8-16); BLOOD UREA NITROGEN 11 mg/dL (7-26); BUN/CREATININE RATIO 17 (6-25); CALCIUM 7.7 mg/dL (8.4-10.2); CARBON DIOXIDE 16 mmol/L (22-29); CHLORIDE 114 mmol/L (98-107); CREATININE, SERUM 0.63 mg/dL (0.57-1.11); EST GLOMERULAR FILTRATION RATE > 60 ML/MIN (60-); GLUCOSE 70 mg/dL (74-118); POTASSIUM 3.1 mmol/L (3.5-5.1); SODIUM 137 mmol/L (136-145)
[2018-12-11 07:25] VITALS: BP 100/58
[2018-12-11 08:05] VITALS: BP 100/58
[2018-12-11] MEDS: FAMOTIDINE 20 MG TAB PO SCH ×2 (08:16→17:13)
[2018-12-11] MEDS ORDERED: LEVOTHYROXINE SODIUM 88 MCG TAB PO SCH (09:00)
[2018-12-11] MEDS: MYCOPHENOLATE MOFETIL 250 MG CAP PO SCH ×2 (09:15→17:13)
[2018-12-11] MEDS: HYDROXYCHLOROQUINE SULFATE 200 MG TAB PO SCH (09:15)
[2018-12-11] MEDS: FERROUS SULFATE 325 MG TAB PO SCH ×3 (09:15→21:33)
[2018-12-11 11:16] VITALS: BP 118/59
--- NOTE | 2018-12-11 11:19 | NUR ---
patient, ambulating alexis way with PT, not in any distress, keep monitoring
[2018-12-11 11:49] LABS: ANISOCYTOSIS SLIGHT; EOSINOPHILS % (MANUAL) 1 % (0-7); LYMPHOCYTES % (MANUAL) 14 % (19-48); MONOCYTES % (MANUAL) 1 % (3.4-9.0); NEUTROPHILS % (MANUAL) 84 % (40-74); PLATELET ESTIMATE ADEQUATE; PLATELET MORPHOLOGY COMMENT NORMAL; RBC MORPHOLOGY COMMENT NORMAL
[2018-12-11] MEDS: AZITHROMYCIN 500MG/NS 250 ML 250 ML IV SCH (12:17)
[2018-12-11] MEDS: CEFTRIAXONE SOD 1 GM/NS 50 ML 50 ML IV SCH (13:25)
[2018-12-11 15:09] VITALS: BP 118/85
--- NOTE | 2018-12-11 19:13 | NUR ---
Report and rounds completed. Patient in bed watching TV. Call light within reach. Will continue to monitor.
--- NOTE | 2018-12-11 19:14 | NUR ---
Left message for Dr Miranda. Patient potassium 3.1 this am with no coverage noted. Awaiting call back.
--- NOTE | 2018-12-11 19:24 | NUR ---
Spoke with Dr Miranda. Notified potassium 3.1 this am and no coverage noted. New order: potassium chl 40 meq po x1.
[2018-12-11] MEDS ORDERED: POTASSIUM CHLORIDE 20 MEQ TAB CR PO NR (19:30)
[2018-12-11 20:00] VITALS: BP 127/71
[2018-12-11] MEDS: AMITRIPTYLINE HCL 25 MG TAB PO SCH (21:33)
[2018-12-12] VITALS: BP 132/78
[2018-12-12 04:00] VITALS: BP 129/76
[2018-12-12] MEDS: HYDROCODONE/APAP 10MG-325MG TAB PO PRN (06:15)
[2018-12-12] MEDS: LEVOTHYROXINE SODIUM 75 MCG TAB PO SCH (06:25)
[2018-12-12] MEDS: SODIUM CHLORIDE 0.9% 1000ML 1,000 ML IV SCH (06:26)
[2018-12-12] MEDS ORDERED: TESSALON PERLE100 MG PO (06:35)
[2018-12-12] MEDS ORDERED: LEVAQUIN500 MG PO (06:35)
[2018-12-12] MEDS ORDERED: TYLENOL WITH C1 EACH PO (06:36)
[2018-12-12 07:20] VITALS: BP 120/67
[2018-12-12] MEDS: FAMOTIDINE 20 MG TAB PO SCH (07:20)
[2018-12-12 08:09] VITALS: BP 120/67
[2018-12-12] MEDS: MYCOPHENOLATE MOFETIL 250 MG CAP PO SCH (08:17)
[2018-12-12] MEDS: HYDROXYCHLOROQUINE SULFATE 200 MG TAB PO SCH (08:17)
[2018-12-12] MEDS: FERROUS SULFATE 325 MG TAB PO SCH (08:17)
[2018-12-12 08:32] LABS: EOSINOPHILS # (AUTO) 0.1 (0.0-0.4); EOSINOPHILS % 1.1 % (0.0-6.0); HEMATOCRIT 28.3 % (34.2-44.1); HEMOGLOBIN 9.5 g/dL (12.0-16.0); LYMPHOCYTES # (AUTO) 0.5 (1.0-3.2); LYMPHOCYTES % 8.2 % (18.0-39.1); MEAN CORPUSCULAR HEMOGLOBIN 28.7 pg (28-32); MEAN CORPUSCULAR HGB CONC 33.6 g/dL (31-35); MEAN CORPUSCULAR VOLUME 85.5 fL (81-99); MONOCYTES # (AUTO) 0.1 (0.2-0.8); MONOCYTES % 2.1 % (4.4-11.3); NEUTROPHILS # (AUTO) 4.9 (2.1-6.9); NEUTROPHILS % 87.3 % (38.7-80.0); PLATELET COUNT 238 x10e3/uL (140-360); RED BLOOD COUNT 3.31 x10e6/uL (3.6-5.1); RED CELL DISTRIBUTION WIDTH 15.7 % (11.7-14.4)
[2018-12-12 08:48] LABS: ANION GAP 11.3 mmol/L (8-16); BLOOD UREA NITROGEN 11 mg/dL (7-26); BUN/CREATININE RATIO 16 (6-25); CALCIUM 8.2 mg/dL (8.4-10.2); CARBON DIOXIDE 15 mmol/L (22-29); CHLORIDE 114 mmol/L (98-107); EST GLOMERULAR FILTRATION RATE > 60 ML/MIN (60-); GLUCOSE 78 mg/dL (74-118); MAGNESIUM 1.5 MG/DL (1.3-2.1); POTASSIUM 3.3 mmol/L (3.5-5.1); SODIUM 137 mmol/L (136-145)
[2018-12-12] MEDS ORDERED: POTASSIUM CHLORIDE 20 MEQ TAB CR PO NR (10:45)
--- NOTE | 2018-12-12 11:00 | NUR ---
patient alert and oriented. discharge instructions given at this time, patient verbalized understanding. IV discontinued at this time, catheter in tact and small dressing applied. Patient to be wheeled to personal auto for friend to drive home.
== END 2018-12-12 11:10 | disposition home or self-care (01) ==
LOC: ER 09:38 → ERHOLD 15:23 → IMCU 15:47
PROVIDERS: ADMIT Internal Medicine; ATTEND Internal Medicine
DX: J18.0 Bronchopneumonia, unspecified organism (principal); R51 Headache; M32.9 Systemic lupus erythematosus, unspecified; E03.9 Hypothyroidism, unspecified; N39.0 Urinary tract infection, site not specified; D64.9 Anemia, unspecified; E87.6 Hypokalemia; E86.0 Dehydration; E66.3 Overweight; Z68.31 Body mass index [BMI] 31.0-31.9, adult; N17.9 Acute kidney failure, unspecified; E87.2 Acidosis
CPT/HCPCS: 36415 ×3; 71046; 71260; 80048 ×2; 80053 ×2; 81001; 82550 ×2; 82553 ×2; 83605; 83735 ×2; 83880; 84484 ×2; 84702; 85014; 85018; 85025 ×4; 85379; 85610; 85730; 86039; 86140; 86225; 86850; 86900; 86920; 87040; 87086; 93005; 97161; 99284; G0378 ×4; J0456 ×3; J0696 ×3; J1885; J2270; J2405; J7030 ×3; J7050; J7517 ×3; P9016; Q9967

== ENCOUNTER 2018-12-19 22:59 | Emergency (ER) | payer OTHER ==
[~2018-12-19] VITALS: Ht 157.5 cm; Wt 77.1 kg
[~2018-12-19 22:59] MED LIST: AMITRIPTYLINE H10 MG PO; FERROUS SULFAT325 MG PO; HYDROXYCHLOROQ200 MG PO; IBUPROFEN600 MG PO; LEVAQUIN500 MG PO; MYCOPHENOLATE500 MG; OMEPRAZOLE40 MG PO; SYNTHROID88 MCG PO; TESSALON PERLE100 MG PO; TYLENOL WITH C1 EACH PO; VITAMIN D250000 UNIT PO
--- OUTSIDE RECORDS SUMMARY | 2018-12-19 23:01 | XMS REPORT | Clinical Summary ---
Author Author WAN [facility] Organization [facility] Address Unknown Phone Unavailable Care Team Providers Care Commercial Installer Name Role Phone Pcp, No PCP Unavailable [...] 04/04/2018 Orders Only General Internal Medicine after 12/18/2017 Social History Date Tobacco Use Types Packs/Day [...] Taken Vital Sign Reading 07/02/2018 12:49 AM CATTLE TESTER Blood Pressure 135/70 07/02/2018 12:49 AM CATTLE TESTER Pulse 89 07/02/2018 12:49 AM CATTLE TESTER Temperature 37.3 C (99.1 F) 07/02/2018 12:49 AM CATTLE TESTER Respiratory Rate 20 07/02/2018 12:49 AM CATTLE TESTER Oxygen Saturation 99% - Inhaled Oxygen - Concentration 07/01/2018 7:47 PM CATTLE TESTER Weight 83.9 kg (185 lb) 07/01/2018 7:47 PM CATTLE TESTER Height 157.5 cm (5' 2") 07/01/2018 7:47 PM CATTLE TESTER Body Mass Index 33.84 Plan of Treatment Not on file Procedures Comments Procedure Name Priority Date/Time Associated Diagnosis CBC W/PLT COUNT & AUTO STAT 07/01/2018 DIFFERENTIAL 8:14 PM CATTLE TESTER BASIC METABOLIC PANEL (7) STAT 07/01/2018 8:14 PM CATTLE TESTER CBC W/PLT COUNT & AUTO STAT 07/01/2018 DIFFERENTIAL 8:14 PM CATTLE TESTER C-REACTIVE PROTEIN STAT 05/11/2018 11:57 PM CDT [...] ms QTC Calculatio n(Bazett) 459 ms P Ararat 38 degrees R Ararat 7 degrees T Ararat 32 degrees Normal sinus rhythm Normal ECG [...] ms QTC Calculatio n(Bazett) 440 ms P Ararat 46 degrees R Ararat 113 degrees T [place] 28 degrees Normal sinus rhythm Left posterior fascicular block Abnormal ECG When compared with ECG of 8 23:55, Left posterior fascicular block is now Present after 12/18/2017 Results * CBC with platelet count + automated diff (07/01/2018 8:14 PM CATTLE TESTER) Only the most recent of 4 results within the time period is included. WBC 2.6 (L) 3.5 - 10.5 K/L [facility] RBC 2.83 (L) 3.93 - 5.22 M/L [facility] Hemoglobin 8.0 (L) 11.2 - 15.7 GM/DL [facility] Hematocrit 24.6 (L) 34.1 - 44.9 % [facility] MCV 86.9 79.4 - 94.8 fL [facility] MCH 28.3 25.6 - 32.2 pg [facility] MCHC 32.5 32.2 - 35.5 GM/DL [facility] RDW 13.7 11.7 - 14.4 % [facility] Platelets 253 150 - 450 K/CU MM [facility] MPV 9.9 9.4 - 12.3 fL [facility] nRBC 0 0 - 0 /100 WBC [facility] % Neutros 72 % [facility] % Lymphs 21 % [facility] % Monos 4 % [facility] % Eos 2 % [facility] % Baso 0 % [facility] # Neutros 1.86 1.56 - 6.13 K/L [facility] # Lymphs 0.54 (L) 1.18 - 3.74 K/L [facility] # Monos 0.10 (L) 0.24 - 0.36 K/L [facility] # Eos 0.04 0.04 - 0.36 K/L [facility] # Baso 0.00 (L) 0.01 - 0.08 K/L [facility] Immature 2 (H) 0 - 1 % [facility] Granulocytes-Relative [facility] Specimen Blood Performing Organization Address City/State/Zipcode Phone Number [facility] [address] [place] [address] [facility] * Basic Metabolic Panel (07/01/2018 8:14 PM CATTLE TESTER) Only the most recent of 3 results within the time period is included. Sodium 138 136 - 145 meq/L [facility] Potassium 3.8 3.5 - 5.1 meq/L [facility] Chloride 112 (H) 98 - 107 meq/L [facility] CO2 18 (L) 22 - 29 meq/L [facility] BUN 14 7 - 21 mg/dL [facility] Creatinine 0.93 0.57 - 1.25 mg/dL [facility] Glucose 90 70 - 105 mg/dL [facility] Calcium 8.3 (L) 8.4 - 10.2 mg/dL [facility] EGFR Comment: INSUFFICIENT CLINICAL mL/min/1.73 sq m [facility] DATA TO CALCULATE ESTIMATED [facility] GFR. Specimen Blood Performing Organization Address City/[facility]/Zipcode Phone Number [address] * C-Reactive Protein (05/11/2018 11:57 PM CDT) CRP 1.94 (H) 0.00 - 0.50 mg/dL [facility] Specimen Blood Performing Organization Address City/[facility]/Zipcode Phone Number [address] * Urinalysis w/Microscopic (05/11/2018 10:08 PM CDT) Only the most recent of 2 results within the time period is included. Color, UA Light Yellow [facility] Clarity, UA Clear [facility] Specific [place], UA 1.014 1.001 - 1.035 [facility] pH, UA 6.0 5.0 - 8.0 [facility] Protein, UA 300 mg/dL (A) Negative [facility] Glucose, UA Negative Negative [facility] Ketones, UA Negative Negative [facility] Bilirubin, UA Negative Negative [facility] Blood, UA Moderate (A) Negative [facility] Nitrite, UA Negative Negative [facility] Leukocytes, UA Negative Negative [facility] Urobilinogen, UA 0.2 0.2 - 1.0 mg/dL [facility] RBC, UA 9 /HPF [facility] WBC, UA 4 /HPF [facility] Bacteria, UA Rare [facility] Mucus Rare [facility] Squam Epithel, UA <1 /HPF [facility] Hyaline Casts, UA 7 /LPF [facility] Specimen Source [facility] Specimen Urine Performing Organization Address City/State/Zipcode Phone Number [facility] [address] [place] [address] MEDICAL CENTER * XR chest [...] MD Report Verified Date/Time:05/11/2018 21:41:24 Reading Location: [address] Consult Reading Room Procedure Note Interface, [...] Report Verified Date/Time: 05/11/2018 21:41:24 Reading Location: [facility] B1 [id number] Consult Reading Room Performing Organization Address City/State/[facility] Phone Number [employer] [facility] * ECG 12 lead (05/11/2018 9:02 PM CDT) Only the most recent of 3 results within the time period is included. Specimen Narrative Performed At Ventricular Rate 71 BPM GE MUSE Atrial Rate 71 BPM P-R Interval 162 ms QRS Duration 80 ms Q-T Interval 408 ms QTC Calculation(Bazett) 443 ms P Ararat 37 degrees R Ararat -20 degrees T Ararat 45 degrees Normal sinus rhythm Normal ECG When compared with ECG of 20-APR-2018 18:55, No significant change was found Confirmed by MD STRICKLAND JORGE ([id number]) on 05/13/2018 2:42:55 PM Procedure Note Interface, External Ris In - 05/13/2018 2:43 PM CDT Ventricular Rate 71 BPM Atrial Rate 71 BPM P-R Interval 162 ms QRS Duration 80 ms Q-T Interval 408 ms QTC Calculation(Bazett) 443 ms P Ararat 37 degrees R Ararat -20 degrees T [place] 45 degrees Normal sinus rhythm Normal ECG When compared with ECG of 20-APR-2018 18:55, No significant change was found Confirmed by MD STRICKLAND JORGE ([id number]) on 05/13/2018 2:42:55 PM Performing Organization Address City/State/[employer] Phone Number [employer] [facility] * TSH/Free T4 If Indicated (05/11/2018 8:56 PM CDT) TSH 4.50 0.35 - 4.94 uIU/mL [facility] Specimen Blood Performing Organization Address City/State/Zipcode Phone Number [address] * Troponin I (05/11/2018 8:56 PM CDT) Only the most recent of 2 results within the time period is included. Troponin I <0.01 0.00 - 0.03 ng/mL [facility] Specimen Blood Narrative Performed At Troponin I (TnI) levels must be interpreted in the context of the presenting [facility] symptoms and the clinical findings. Elevated TnI levels indicate myocardial [facility] damage, but are not specific for ischemic heart disease. Elevated TnI levels are seen in patients with other cardiac conditions (including myocarditis and congestive heart failure), and slight TnI elevations occur in patients with other conditions, including sepsis, renal failure, acidosis, acute neurological disease, and persistent tachyarrhythmia. Performing Organization Address [facility] [place]/[facility] Phone Number [address] * Complement Component C3 (05/11/2018 8:56 PM CDT) C3 Complement 68 (L) 82 - 193 mg/dL [facility] Specimen Blood Performing Organization Address [facility] [place]/[facility] Phone Number [address] * Complement Component C4 (05/11/2018 8:56 PM CDT) C4 Complement 11 (L) 15 - 57 mg/dL [facility] Specimen Blood Performing Organization Address [facility] [place]/[facility] Phone Number [address] * Comprehensive metabolic panel (05/11/2018 8:56 PM CDT) Protein, Total 6.3Comment: Specimen slightly 6.0 - 8.3 gm/dL [facility] hemolyzed [facility] Albumin 2.6 (L)Comment: Specimen 3.5 - 5.0 g/dL [facility] slightly hemolyzed [facility] Alkaline Phosphatase 84 40 - 150 U/L [facility] Total Bilirubin 0.2Comment: Specimen slightly 0.2 - 1.2 mg/dL [facility] Sodium 138 136 - 145 meq/L [facility] Potassium 4.5Comment: Specimen slightly 3.5 - 5.1 meq/L [facility] Chloride 117 (H) 98 - 107 meq/L [facility] CO2 16 (L) 22 - 29 meq/L [facility] BUN 21 7 - 21 mg/dL [facility] Creatinine 0.84Comment: Specimen slightly 0.57 - 1.25 mg/dL [facility] Glucose 90 70 - 105 mg/dL [facility] Calcium 7.8 (L) 8.4 - 10.2 mg/dL [facility] AST 23Comment: Specimen slightly 5 - 34 U/L [facility] ALT 15Comment: Specimen slightly 6 - 55 U/L [facility] EGFR Comment: INSUFFICIENT CLINICAL mL/min/1.73 sq m [facility] DATA TO CALCULATE ESTIMATED [facility] GFR. Specimen Blood Performing Organization Address City/[facility]/Zipcode Phone Number [facility] [address] [place] [phone] [place] [address] * Screen, urine (04/20/2018 10:00 PM CDT) Preg Test, Ur Negative [facility] Specimen Urine Performing Organization Address [facility] Phone Number [facility] [address] [place] [address] [facility] * CT chest for pulmonary embolus (04/04/2018 8:03 PM CDT) Specimen Narrative Performed At FINAL REPORT [facility] CLINICAL HISTORY: Is pain and shortness [...] MD Report Verified Date/Time:04/04/2018 20:11:45 Reading Location: [address] Procedure Note Interface, External Ris In [...] Report Verified Date/Time: 04/04/2018 20:11:45 Reading Location: [address] Reading Room Performing Organization Address City/State/Zipcode Phone Number [facility] * CT brain without IV contrast (04/04/2018 6:45 PM CDT) Specimen Narrative Performed At FINAL REPORT [facility] CT head without contrast 04/04/2018 6:54 PM [...] MD Report Verified Date/Time:04/04/2018 18:55:24 Reading Location: [address] Neuro Reading Room Procedure Note Interface, [...] Report Verified Date/Time: 04/04/2018 18:55:24 Reading Location: [facility] B1 [id number] Neuro Reading Room Performing Organization Address City/State/Zipcode Phone Number [facility] * POCT , urine (04/04/2018 2:57 PM CDT) Test Urine, POC Negative Control line present?, Yes POC Background clear?, POC Yes UPT Cassette Lot #, POC [id number] UPT Cassette Expiration [phone] Date, POC Specimen Urine after 12/18/2017 Insurance Payer Benefit Subscriber ID Type Phone Address Plan / Group MEDICAID - MEDICAID MGD MEDICAID xxxxxxxxx Medicaid CARE COMM Contracted HEALTH CHOICE Advance Directives For more information, please contact: [facility] [address] [place] [address] Date Inactivated Comments Code Status Date Activated 09/27/2017 8:35 PM Full Code 09/17/2017 6:32 PM This code status was determined by: Patient 04/21/2017 4:47 PM Full Code 04/20/2017 3:45 AM This code status was determined by: Patient
== END 2018-12-19 23:50 | disposition left against medical advice (07) ==
LOC: ER 22:59
DX: M79.642 Pain in left hand (principal); M79.641 Pain in right hand